=== PATIENT | female | born 1980 | race Caucasian/White ===

== ENCOUNTER 2018-04-14 06:11 | Emergency (ER) | payer BC, SELFPAY ==
[2018-04-14 06:13] VITALS: BP 105/64; PULSE 70; RESP 17; TEMP 36.7; O2SAT 96; BMI 25.6
--- NOTE | 2018-04-14 06:14 | RAD_ITS ---
STUDY: X-RAY - LUMBAR SPINE REASON FOR EXAM: Female, 38 years old. Injury. Low back pain TECHNIQUE: 3 view(s) of the lumbar spine were obtained. COMPARISON: None FINDINGS: Normal lumbar lordosis. There is no substantial scoliosis. There is a normal alignment of the vertebrae. Normal vertebral bodies and endplates. Normal disc space heights. The soft tissue structures are unremarkable. RAD/Lumbar Spine 2 or 3 Views IMPRESSION: Normal x-ray examination of the lumbar spine. No fractures and no disc disease Electronically Signed: Naga Szymanski MD at 6:41 EDT Tel , Service support ,
[2018-04-14] MEDS: Naproxen 500 MG Tablet PO (06:20)
--- NOTE | 2018-04-14 06:56 | ED.VISSUMM ---
- ER Visit Summary Date of Service: 04/14/18 Chief Complaint: Back pain History of Present Illness: The patient is a 38 F presenting for evaluation secondary to back pain. Patient reports that she was lifting today doing a workout. She was using a straight bar with not an exceeding amount of weight. She reports that during 1 of her wraps she felt a sudden pop in her lower back. She reports that there was a sudden onset of pain in this area. Patient reports that associated with the pain was nausea and lightheadedness. She reports that the nausea and lightheadedness came anytime she attempted to stand and the pain would get worse. She denies that there is any sort of radiation to her legs. She denies any bowel or bladder incontinence. She denies any history of back pain issues. Physical Examination: Vitals: Within normal limits General: Well-nourished well-developed no acute distress Head: Normocephalic atraumatic ENT: Moist mucous membranes Neck: Supple no JVD Cardiovascular: Heart regular rate and rhythm no murmurs Respiratory: Respirations nondistressed, lung sounds clear to auscultation bilaterally Abdominal: Soft, nontender, nondistended, normal bowel sounds, no evidence of abdominal masses or pulsatile mass Back: Normal to inspection, midline tenderness at approximately the area of L4 without any evidence of step-offs or deformity, straight leg raise negative bilaterally Extremities: Nontender, nonedematous, 2+ radial and PT pulses bilaterally symmetric Skin: Normal color no rash Neuro: 5/5 strength hip flexion, knee flexion, knee extension, dorsiflexion, plantarflexion, EHL. Sensation intact over all dermatomes of the lower extremities bilaterally, 2+ patellar and Achilles reflexes bilaterally symmetric, negative clonus bilaterally Test Results: Lumbar x-ray is negative and shows normal joint spaces, no evidence of malalignment per my personal review and radiology Emergency Department Course and Treatment: Patient presented secondary to a back injury. X-rays were found to be negative. Patient does not have any neurologic symptoms associated with this, I do not believe that this is associated with a retropulsed disc or instability of the patient's spine. Patient did endorse some lightheadedness and nausea but she has a normal vascular exam and I do not believe that there is any sort of vascular issues with this. She likely was lightheaded and nauseous secondary to a vagal response from her pain. She has normal blood pressure here. She was given Naprosyn for treatment of pain, likely believe that this is a strain of the back. Patient will be treated with a course of Naprosyn and Flexeril and will follow up with primary care. Disposition: Discharge Impression: 1. Lumbar strain This note was generated with [employer] dictation software. It may contain incorrect words, spelling, and punctuation that were not noted in review of the chart prior to signing ED Disposition - Plan for ED Patient: Disposition: Home or Assisted Living Chief Complaint: Back Diagnosis: Lumbar strain Instructions: ED Sprain Strain Lumbar Prescriptions: Naproxen [Naprosyn] 500 mg PO BID PRN #20 tab Cyclobenzaprine [Flexeril] 10 mg PO TID PRN #20 tab PRN Reason: Muscle Spasm Referrals: Vicente Velasco MD [Primary Care Provider] - 1 Week if not improving
[2018-04-14 07:05] VITALS: RESP 15
== END 2018-04-14 07:06 | disposition home or self-care (01) ==
PROVIDERS: Emergency Provider Emergency Medicine; Family Provider Family Medicine; PCP Family Medicine
DX: S39.012A Strain of muscle, fascia and tendon of lower back, initial encounter (principal); X50.0XXA Overexertion from strenuous movement or load, initial encounter; Y93.9 Activity, unspecified; Y92.89 Other specified places as the place of occurrence of the external cause; Y99.9 Unspecified external cause status
CPT/HCPCS: 72100; 99283

== ENCOUNTER → 2019-12-24 14:28 | Outpatient (CLI) | payer BC, SELFPAY ==
[2018-11-15 09:34] VITALS: BMI 25.5
[2019-12-24 18:43] LABS: Anion Gap 11 (5-15); BUN 12 mg/dL (7-18); BUN/Creat Ratio 12.5 RATIO (10-20); Calcium,Total 8.8 mg/dL (8.5-10.1); Chloride 103 mmol/L (98-107); Cholesterol 171 mg/dL (200); Creatinine, Serum 0.96 mg/dL (0.55-1.02); EST Glomerular Filtration Rate 69 mL/min (>60); Est Glom Filt Rate - Afr Amer 83 mL/min (>60); Glucose 83 mg/dL (74-106); High Density Lipoprotein 58 mg/dL; Potassium 3.8 mmol/L (3.5-5.1); Sodium Level 138 mmol/L (136-145); Triglycerides 141 mg/dL; Very Low Density Lipoprotein 28 mg/dL (5-40)
== END ==
PROVIDERS: PCP Family Medicine; Referring Provider Family Medicine; Visit Provider Family Medicine
DX: Z00.00 Encounter for general adult medical examination without abnormal findings (principal)
CPT/HCPCS: 36415; 80048; 80061

== ENCOUNTER → 2020-01-15 17:21 | Outpatient (CLI) | payer BC, SELFPAY ==
[2020-01-15 13:48] VITALS: BMI 25.5
[2020-01-23 03:48] LABS: HPV APTIMA, High Risk Negative (Negative)
== END ==
PROVIDERS: PCP Family Medicine; Referring Provider Obstetrics & Gynecology; Visit Provider Obstetrics & Gynecology
DX: Z12.4 Encounter for screening for malignant neoplasm of cervix (principal)
CPT/HCPCS: 87624; 88175; G0145

== ENCOUNTER → 2020-11-19 17:28 | Outpatient (CLI) | payer BC, SELFPAY ==
[2020-03-26 14:05] VITALS: BMI 25.5
[2020-11-19 19:28] LABS: Probe Check PASS; Specimen Processing Control PASS
== END ==
PROVIDERS: Visit Provider Family Medicine
DX: Z71.89 Other specified counseling (principal)
CPT/HCPCS: 87635; U0002

== ENCOUNTER → 2021-02-09 11:58 | Outpatient (CLI) | payer OTHER, SELFPAY ==
[2020-03-26 14:05] VITALS: BMI 25.5
[2021-01-19 15:09] VITALS: BMI 25.5
--- NOTE | 2021-02-09 12:02 | BI_ITS ---
MAMMOGRAPHY - BILATERAL SCREENING REASON FOR EXAM: Female, 41 years old. Routine annual screening examination. PERTINENT HISTORY: Non-contributory. TECHNIQUE: Digital bilateral breast ney (3D mammographic acquisition) in the CC and MLO projections. 2-D mediolateral oblique (MLO) and craniocaudad (CC) views of both breasts were obtained. CAD: Full Field Digital Mammography with Computer Added Detection was performed. COMPARISON: None. Baseline examination. FINDINGS: Breast Composition: The breasts are extremely dense, which lowers the sensitivity of mammography. There are no dominant masses or suspicious calcifications. No other significant abnormalities are identified. BI/SCRN MAMM (CAD)W/NEY BILAT IMPRESSION: Negative screening mammogram. Yearly followup mammogram recommended. (A) ASSESSMENT CATEGORY: BIRADS Category 1: Negative. A letter regarding these results will be sent to the patient by the facility within 30 days. Approximately 10% of breast cancers are not detected by mammography. A normal mammogram should not delay biopsy of a clinically suspicious abnormality. [id number] Electronically Signed: Eduardo Flores MD at 12:45 EDT , Service support ,
== END ==
PROVIDERS: Referring Provider Obstetrics & Gynecology; Visit Provider Obstetrics & Gynecology
DX: Z12.31 Encounter for screening mammogram for malignant neoplasm of breast (principal)
CPT/HCPCS: 77063; 77067

== ENCOUNTER → 2021-02-24 07:19 | Outpatient (CLI) | payer OTHER, SELFPAY ==
[2021-02-24 10:20] LABS: Anion Gap 8 (5-15); BUN 12 mg/dL (7-18); BUN/Creat Ratio 12.5 RATIO (10-20); Calcium,Total 8.4 mg/dL (8.5-10.1); Chloride 106 mmol/L (98-107); Cholesterol 145 mg/dL (200); Creatinine, Serum 0.96 mg/dL (0.55-1.02); EST Glomerular Filtration Rate 69 mL/min (>60); Est Glom Filt Rate - Afr Amer 83 mL/min (>60); Glucose 84 mg/dL (74-106); High Density Lipoprotein 58 mg/dL; Potassium 3.7 mmol/L (3.5-5.1); Sodium Level 137 mmol/L (136-145); Triglycerides 128 mg/dL; Very Low Density Lipoprotein 26 mg/dL (5-40)
== END ==
PROVIDERS: PCP Family Medicine; Referring Provider Family Medicine; Visit Provider Family Medicine
DX: Z13.220 Encounter for screening for lipoid disorders (principal); Z13.1 Encounter for screening for diabetes mellitus
CPT/HCPCS: 36415; 80048; 80061

== ENCOUNTER 2021-03-24 18:00 | Outpatient (RCR) | payer OTHER, SELFPAY ==
--- NOTE | 2021-03-04 10:01 | HP.PTEVAL_ITS ---
Patient's Visit Information SHI CROWE is a 41 year old F referred to Physical Therapy by Dr. Vicente Velasco MD with a diagnosis of R hip pain. Date of Evaluation: 03/03/21 Physical Therapist: Suresh Muhammad DPT - Visit Plan Frequency: 2x /Week Duration: 4 Weeks Plan: Start with hip abductor strengthening, ER and IT band stretching. Pt. to have running analysis completed and use info to further establish HEP for running correction. - Subjective Pt. is here today for her initial evaluation with diagnosis of R hip pain. Pt. reports having increased R hip pain mostly the day after running for ~2 miles. Pt. reports no pain currently and no pain at rest. Pt. does cross fit x3 a week without issues. Pt. denies N/T, no back pain. She is able to complete all lifting without issues. Pt. has not had any xrays or imaging at this point in time. Pt. sleeping well, no issues with sleeping, no radicular symptoms. She reports increased pain in AMs after running, but loosens up as the day progresses. She reports pain at upper aspect of lateral hip. NO groin pain, pain is just inferior to iliac crest at lateral, anterior aspect. She has changed her shoes recently and reports some relief, but not fully. Her physician would like her to do a running analysis to determine if she is having break down in her running pattern causing her symptoms. - Pain R hip Pain Intensity (Out of 10): 0 Pain Intensity Range: 0, 6 - Objective POSTURE: Pt. has good posture in stance, Normal iliac crest heights. Pt. has normal wt. shift in stance. PALPATION: Pt. has some mild symptoms with firm palpation of glute medius region and slight pain at TFL muscle belly. No pain with rest of palpation of her R hip and lumbar spine. NEURO: normal sensation in BLEs, normal DTR throughout BLEs. ROM: Pt. has good lumbar and hip ROM. Slight tightness with Obers testing B, but no increase in symptoms. MMT: RLE 5/5 throughout, except hip abd 4+/5 with mild increase in symptoms. GAIT: normal gait pattern. Squat mechanics- no issues normal wt. shifting, no off loading noted. Good knee positioning. SLS: increased knee valgus with hip IR motion during R loaded. - Goals Goal 1:: LTG: Pt. to be I with HEP. Goal Time Frame: 4-6 Weeks Goal 2:: LTG: Pt. to have no tightness with obers testing Bilaterally. Goal Time Frame: 4-6 Weeks Goal 3:: LTG: Pt. to have increased R lateral hip strength to 5/5 throughout. Goal Time Frame: 4-6 Weeks Goal 4:: STG: Pt. to have running analysis completed. Goal Time Frame: 2 Weeks Goal 5:: LTG: Pt. to be able to run 2-3 miles with increase in R hip pain the following day. Goal Time Frame: 4-6 Weeks - Rehabilitation Potential Physical Therapy Diagnosis: Pt. has signs of R lateral hip pain. No signs of labral issues. She has some tightness of her IT band and some weakness of her R hip abductors. I would like her to strengthening her lateral hip, work on some IT band and hip ER stretching and also have a running analysis to look for breakdown. Rehabilitation Potential: Excellent - Anticipated Interventions Patient/Client Instruction: Educate patient on: Condition, Plan of Care, Risk Factors, Benefits of Fitness Program For the Purpose of:: To foster healthy habits, To improve decision making, To facilitate caregiver knowledge, To improve self management, To prevent re- injury, To improve ability to perform tasks related to life management Therapeutic Exercise to Include: Strength training, Power training, Endurance training, Postural training, Flexibilty training, Gait and locomotor training, Passive ROM, Active ROM For the Purpose of:: To decrease pain, To decrease swelling/inflammation, To increase ROM, To improve nutrient delivery to tissue, To increase oxygenation perfusion, To improve gait and locomotor functions, To improve health of tissue, To decrease soft tissue restriction, To increase flexibility/ROM Functional Training to Include: Functional sports training, Gait training For the Purpose of:: To decrease pain, To decrease swelling/inflammation, To increase ROM Thank you for the opportunity to evaluate your patient. For Medicare and Medicare HMO plans, please review the plan of care and approve it. It will need to be FAXED BACK to us at [phone] for Medicare purposes. For Medicare only, by signing this I certify the plan of care. Please let me know if there are questions or concerns regarding this plan of care. Physician Signature: Date:
--- NOTE | 2021-07-10 12:28 | HP.PTDCNRP_ITS ---
SHI CROWE was seen in my office for initial evaluation on 03/03/21. The following Plan of Care was established for this patient: Initial Frequency: 2x /Week Initial Duration: 4 Weeks Patient/Client Instruction: Educate patient on: Condition, Plan of Care, Risk Factors, Benefits of Fitness Program For the Purpose of:: To foster healthy habits, To improve decision making, To facilitate caregiver knowledge, To improve self management, To prevent re- injury, To improve ability to perform tasks related to life management Therapeutic Exercise to Include: Strength training, Power training, Endurance training, Postural training, Flexibilty training, Gait and locomotor training, Passive ROM, Active ROM For the Purpose of:: To decrease pain, To decrease swelling/inflammation, To increase ROM, To improve nutrient delivery to tissue, To increase oxygenation perfusion, To improve gait and locomotor functions, To improve health of tissue, To decrease soft tissue restriction, To increase flexibility/ROM Functional Training to Include: Functional sports training, Gait training For the Purpose of:: To decrease pain, To decrease swelling/inflammation, To increase ROM This patient was last seen in our office 03/15/21. Pertinent comments regarding their Physical therapy will appear below: Pt. was seen in PT for her hip pain. Pt. completed a running analysis and was doing better at her last visit. She has no been seen in several months and will be DC from PT at this point in time. At this point I will be discontinuing this patient from physical therapy. I would be happy to see this patient again in the future if found appropriate by the physician. Thank you! Suresh Muhammad, DPT Balance/Gait/Functional tests - Balance/Special Test Scores Lower Extremity Functional Score: 80
== END 2021-03-24 19:00 | disposition home or self-care (01) ==
LOC: PT 18:00
PROVIDERS: PCP Family Medicine; Referring Provider Family Medicine; Visit Provider Family Medicine
DX: M25.551 Pain in right hip (principal)
CPT/HCPCS: 97161; 97530

== ENCOUNTER 2021-10-06 13:02 | Outpatient (CLI) | payer OTHER, SELFPAY ==
[2021-10-06 15:12] LABS: Absolute Lymphocyte Count 2.92 X10^3/uL (0.83-4.51); Absolute Neutrophil Count 4.3 X10^3/uL (2.0-7.7); Basophil# 0.03 X10^3/uL; Basophil% 0.4 % (0-1); Eosinophil# 0.03 X10^3/uL; Eosinophils% 0.4 % (0-5); Hematocrit 39.4 % (37-47); Hemoglobin 13.1 g/dL (12.0-15.0); Lymphocyte # 2.92 X10^3/ul (0.83-4.51); Mean Corp Hgb Conc 33.2 g/dL (32-36); Mean Corpuscular Hgb 30.8 pg (27.0-32.0); Mean Corpuscular Volume 92.7 fL (81-99); Mean Platelet Vol. 11.2 fl (6.2-12.0); Monocyte# 0.42 X10^3/uL; Monocyte% 5.5 % (0-10); NRBC Flagged by Analyzer 0 % (0-5); Neutrophil # 4.27 X10^3/uL (2.7-7.7); Neutrophil % 55.4 % (47-70); Platelet Count 236 K/mm3 (150-450); RBC Distribution Width CV 12.1 % (11.6-14.6); RBC Distribution Width SD 41.2 fl (35.1-43.9); Red Blood Count 4.25 M/mm3 (4.2-5.4); White Blood Count 7.7 K/mm3 (4.4-11.0)
[2021-10-06 15:37] LABS: ALB/GLOB Ratio 1.1 RATIO (0.9-2.4); AST(SGOT) 13 U/L (15-37); Alanine Aminotransfer ALT/SGPT 23 U/L (13-56); Albumin, Serum 3.7 g/dL (3.2-5.0); Alkaline Phosphatase 40 U/L (45-117); Anion Gap 5 (5-15); BUN 13 mg/dL (7-18); BUN/Creat Ratio 11.8 RATIO (10-20); Calcium,Total 8.5 mg/dL (8.5-10.1); Chloride 106 mmol/L (98-107); EST Glomerular Filtration Rate 58 mL/min (>60); Est Glom Filt Rate - Afr Amer 71 mL/min (>60); Globulin 3.3 g/dL (2.2-4.2); Glucose 90 mg/dL (74-106); Potassium 3.9 mmol/L (3.5-5.1); Sodium Level 138 mmol/L (136-145)
== END 2021-10-06 23:59 | disposition home or self-care (01) ==
LOC: MTLAB 13:04
PROVIDERS: PCP Family Medicine; Referring Provider Nurse Practitioner Family; Visit Provider Nurse Practitioner Family
DX: R55 Syncope and collapse (principal)
CPT/HCPCS: 36415; 80053; 85025

== ENCOUNTER → 2021-10-26 | Outpatient (CLI) | payer OTHER, SELFPAY ==
[2021-10-26 15:34] LABS: ALB/GLOB Ratio 0.9 RATIO (0.9-2.4); AST(SGOT) 19 U/L (15-37); Alanine Aminotransfer ALT/SGPT 26 U/L (13-56); Albumin, Serum 3.4 g/dL (3.2-5.0); Alkaline Phosphatase 46 U/L (45-117); Anion Gap 7 (5-15); BUN 13 mg/dL (7-18); BUN/Creat Ratio 13.5 RATIO (10-20); Calcium,Total 8.7 mg/dL (8.5-10.1); Chloride 106 mmol/L (98-107); Creatinine, Serum 0.96 mg/dL (0.55-1.02); EST Glomerular Filtration Rate 68 mL/min (>60); Est Glom Filt Rate - Afr Amer 82 mL/min (>60); Globulin 3.6 g/dL (2.2-4.2); Glucose 84 mg/dL (74-106); Sodium Level 137 mmol/L (136-145)
== END | disposition home or self-care (01) ==
LOC: MTLAB 12:55
PROVIDERS: PCP Family Medicine; Referring Provider Nurse Practitioner Family; Visit Provider Nurse Practitioner Family
DX: Z00.00 Encounter for general adult medical examination without abnormal findings (principal)
CPT/HCPCS: 36415; 80053

== ENCOUNTER → 2022-02-11 | Outpatient (CLI) | payer OTHER, SELFPAY ==
--- NOTE | 2022-02-11 15:05 | BI_ITS ---
MAMMOGRAPHY - BILATERAL SCREENING REASON FOR EXAM: Female, 42 years old. Routine annual screening examination. PERTINENT HISTORY: Non-contributory. TECHNIQUE: Digital bilateral breast ney (3D mammographic acquisition) in the CC and MLO projections. 2-D mediolateral oblique (MLO) and craniocaudad (CC) views of both breasts were obtained. CAD: Full Field Digital Mammography with Computer Added Detection was performed. COMPARISON: Comparison is made with prior study dated 02/09/2021. FINDINGS: Breast Composition: The breasts are extremely dense, which lowers the sensitivity of mammography. There are no dominant masses or suspicious calcifications. No other significant abnormalities are identified. There has been no significant change since the prior study. BI/SCRN MAMM (CAD)W/NEY BILAT IMPRESSION: Stable bilateral screening mammogram. Yearly follow-up mammogram recommended. (A) ASSESSMENT CATEGORY: BIRADS Category 1: Negative. A letter regarding these results will be sent to the patient by the facility within 30 days. Approximately 10% of breast cancers are not detected by mammography. A normal mammogram should not delay biopsy of a clinically suspicious abnormality. [id number] Electronically Signed: Eduardo Flores MD at 17:35 EDT ,
== END | disposition home or self-care (01) ==
LOC: OPBI 15:03
PROVIDERS: PCP Family Medicine; Visit Provider Obstetrics & Gynecology
DX: Z12.31 Encounter for screening mammogram for malignant neoplasm of breast (principal)
CPT/HCPCS: 77063; 77067

== ENCOUNTER → 2022-02-16 | Outpatient (CLI) | payer OTHER, SELFPAY | END | disposition home or self-care (01) | PROVIDERS: PCP Family Medicine; Referring Provider Obstetrics & Gynecology; Visit Provider Obstetrics & Gynecology | DX: Z85.01 Personal history of malignant neoplasm of esophagus (principal) | CPT/HCPCS: 36415 ==

== ENCOUNTER → 2022-11-10 | Outpatient (CLI) | payer OTHER, SELFPAY ==
[2022-11-10 10:52] LABS: Vitamin D,25 Hydroxy 36.1 ng/mL
[2022-11-10 11:11] LABS: Anion Gap 9 (5-15); BUN 10 mg/dL (7-18); BUN/Creat Ratio 10.1 RATIO (10-20); Calcium,Total 8.9 mg/dL (8.5-10.1); Chloride 106 mmol/L (98-107); Cholesterol 137 mg/dL (200); EST Glomerular Filtration Rate 65 mL/min (>60); Est Glom Filt Rate - Afr Amer 79 mL/min (>60); Glucose 85 mg/dL (74-106); High Density Lipoprotein 64 mg/dL; Potassium 4.4 mmol/L (3.5-5.1); Sodium Level 140 mmol/L (136-145); Thyroid Stim Hormone (TSH) 1.47 uIU/mL (0.358-3.74); Triglycerides 79 mg/dL; Very Low Density Lipoprotein 16 mg/dL (5-40)
== END | disposition home or self-care (01) ==
LOC: MTLAB 08:59
PROVIDERS: PCP Family Medicine; Referring Provider Family Medicine; Visit Provider Family Medicine
DX: Z13.220 Encounter for screening for lipoid disorders (principal); Z13.1 Encounter for screening for diabetes mellitus
CPT/HCPCS: 36415; 80048; 80061; 82306; 84443

== ENCOUNTER → 2023-02-18 | Outpatient (CLI) | payer OTHER, SELFPAY ==
--- NOTE | 2023-02-18 11:06 | BI_ITS ---
MAMMOGRAPHY - BILATERAL SCREENING REASON FOR EXAM: Female, 43 years old. Routine annual screening examination. PERTINENT HISTORY: Non-contributory. TECHNIQUE: Digital bilateral breast ney (3D mammographic acquisition) in the CC and MLO projections. 2-D mediolateral oblique (MLO) and craniocaudad (CC) views of both breasts were obtained. CAD: Full Field Digital Mammography with Computer Added Detection was performed. COMPARISON: Comparison is made with prior study February 11, 2022 and February 09, 2021. FINDINGS: Breast Composition: The breasts are extremely dense, which lowers the sensitivity of mammography. There are no dominant masses or suspicious calcifications. No other significant abnormalities are identified. There has been no significant change since the prior study. BI/SCRN MAMM (CAD)W/NEY BILAT IMPRESSION: Stable bilateral screening mammogram. Yearly follow-up mammogram recommended. (A) ASSESSMENT CATEGORY: BIRADS Category 1: Negative. A letter regarding these results will be sent to the patient by the facility within 30 days. Approximately 10% of breast cancers are not detected by mammography. A normal mammogram should not delay biopsy of a clinically suspicious abnormality. [id number] Electronically Signed: Eduardo Flores MD at 12:24 EDT ,
== END | disposition home or self-care (01) ==
LOC: OPBI 11:05
PROVIDERS: PCP Family Medicine; Referring Provider Obstetrics & Gynecology; Visit Provider Obstetrics & Gynecology
DX: Z12.31 Encounter for screening mammogram for malignant neoplasm of breast (principal)
CPT/HCPCS: 77063; 77067

== ENCOUNTER → 2023-11-18 | Outpatient (CLI) | payer OTHER, SELFPAY ==
[2023-11-18 11:17] LABS: Vitamin D,25 Hydroxy 33.4 ng/mL
[2023-11-18 11:31] LABS: Anion Gap 8 (5-15); BUN 14 mg/dL (7-18); BUN/Creat Ratio 12.8 RATIO (10-20); Calcium,Total 8.6 mg/dL (8.5-10.1); Chloride 106 mmol/L (98-107); Cholesterol 151 mg/dL (200); Creatinine, Serum 1.09 mg/dL (0.55-1.02); EST Glomerular Filtration Rate 58 mL/min (>60); Est Glom Filt Rate - Afr Amer 71 mL/min (>60); Glucose 98 mg/dL (74-106); High Density Lipoprotein 62 mg/dL; Potassium 3.8 mmol/L (3.5-5.1); Sodium Level 135 mmol/L (136-145); Thyroid Stim Hormone (TSH) 2.08 uIU/mL (0.358-3.74); Triglycerides 109 mg/dL; Very Low Density Lipoprotein 22 mg/dL (5-40)
== END | disposition home or self-care (01) ==
LOC: MTLAB 07:18
PROVIDERS: PCP Family Medicine; Referring Provider Family Medicine; Visit Provider Family Medicine
DX: Z00.00 Encounter for general adult medical examination without abnormal findings (principal)
CPT/HCPCS: 36415; 80048; 80061; 82306; 84443

== ENCOUNTER → 2024-05-09 | Outpatient (CLI) | payer BC, SELFPAY ==
[2024-05-16 13:08] LABS: HPV APTIMA, High Risk Negative (Negative)
== END | disposition home or self-care (01) ==
LOC: LABSPEC 08:57
PROVIDERS: PCP Family Medicine; Referring Provider Obstetrics & Gynecology; Visit Provider Obstetrics & Gynecology
DX: Z12.4 Encounter for screening for malignant neoplasm of cervix (principal)
CPT/HCPCS: 87624; 88175; G0145

== ENCOUNTER → 2024-05-25 | Outpatient (CLI) | payer BC, SELFPAY ==
--- NOTE | 2024-05-25 14:52 | BI_ITS ---
MAMMOGRAPHY - BILATERAL SCREENING REASON FOR EXAM: Female, 44 years old. Routine annual screening examination. PERTINENT HISTORY: Non-contributory. TECHNIQUE: Digital bilateral breast ney (3D mammographic acquisition) in the CC and MLO projections. 2-D mediolateral oblique (MLO) and craniocaudad (CC) views of both breasts were obtained. CAD: Full Field Digital Mammography with Computer Added Detection was performed. COMPARISON: Comparison is made with prior study dated February 18, 2023 and February 11, 2022. FINDINGS: Breast Composition: The breasts are extremely dense, which lowers the sensitivity of mammography. There are no dominant masses or suspicious calcifications. No other significant abnormalities are identified. There has been no significant change since the prior study. BI/SCRN MAMM (CAD)W/NEY BILAT IMPRESSION: Stable bilateral screening mammogram. Yearly follow-up mammogram recommended. (A) ASSESSMENT CATEGORY: BIRADS Category 1: Negative. A letter regarding these results will be sent to the patient by the facility within 30 days. Approximately 10% of breast cancers are not detected by mammography. A normal mammogram should not delay biopsy of a clinically suspicious abnormality. [id number] Electronically Signed: Eduardo Flores MD at 15:25 EST ,
== END | disposition home or self-care (01) ==
LOC: OPBI 14:52
PROVIDERS: PCP Family Medicine; Referring Provider Obstetrics & Gynecology; Visit Provider Obstetrics & Gynecology
DX: Z12.31 Encounter for screening mammogram for malignant neoplasm of breast (principal)
CPT/HCPCS: 77063; 77067

== ENCOUNTER → 2024-12-25 | Outpatient (CLI) | payer BC, SELFPAY ==
--- OUTSIDE RECORDS SUMMARY | 2024-12-25 07:37 | XMS RPT_ITS | CCD ---
Author Organization [facility] Care Team Providers Care Abstract Maker Name Role Phone Dr. Vicente Velasco Primary Care Provider Dr. Vicente Velasco Referring Provider Sol MILLER, ANGELA Leon Attending Provider Dr. Lynda Rivera Attending Provider Dr. Vicente Velasco Primary Care Provider [phone] Dr. Vicente Velasoc Referring Provider Stacey Velasco MD Primary Care Provider Stacey Velasco MD Primary Care Provider Stacey Velasco Primary Care Unavailable Lynda Rivera Referring Unavailable Lynda Rivera Attending Unavailable Stacey Velasco Primary Care Unavailable Lynda Rivera Referring Unavailable Lynda Rivera Attending Unavailable Stacey Velasco Attending Unavailable Stacey Velasco Primary Care Unavailable Stacey Velasco Referring Unavailable Stacey Velasco Primary Care Unavailable Lynda Rivera Attending Unavailable Stacey Velasco Referring Unavailable MYRA MORA Attending Unavail able STACEY VELASCO Primary Care Unavailfreida e STACEY VELASCO Primary Care Unavailfreida e MYRA MORA Referring Unavail able STACEY VELASCO Primary Care Unavailabl e MYRA MORA Attending Unavail able STACEY VELASCO Primary Care Unavailabl e MYRA MORA Attending Unavail able Allergies Allergy Classification Reported Allergen(s) Allergy Type Date of Onset Reaction(s) Facility (11 sources) Amoxicillin; Translations: [AMOXICILLIN] Drug Allergy 07-11-2001 Rash [facility] (1 source) Amoxicillin Drug Allergy 05-09-2024 [facility] Repository Medications Current Medications Medication Drug Class(es) Dates Sig (Normalized) Sig (Original) cetirizine hydrochloride 10 mg oral tablet (1 source) Histamine-1 Receptor Antagonist Start: 06-01-2023 End: 06-11-2023 take 1 tablet by mouth once daily cetirizine (ZYRTEC) 10 mg tablet Take 1 tablet by mouth once daily for 10 days. 10 tablet 0 06/01/2023 06/11/2023 Active Comment on above: Take 1 tablet by tami th once daily for 10 days. drospirenone / Ethinyl Estradiol (20 sources) Progestin, Estrogen Start: 07-05-2024 take 1 tablet by mouth once daily Drospirenone-Ethi nyl Estradiol (IRTU, 28,) 3-0.02 mg per tablet Take 1 tablet by mouth once daily. 28 tablet 11 07/05/2024 Active Start: 02-14-2023 take 1 tablet by tami th once daily Drospirenone-Ethinyl Estradiol Active 0 .ROUTE .COMPLEX February 14, 2023 11:01am take 1 tablet by mouth once daily Start: 01-25-2022 End: 02-14-2023 take 1 tablet by mouth once daily Drospirenone-Ethinyl Estradiol Discontinued 0 .ROUTE .COMPLEX 84 January 25, 2022 9:15am February 14, 2023 11:01am take 1 tablet by mouth once daily Start: 01-25-2022 take 1 tablet by tami th once daily Drospirenone-Ethinyl Estradiol Active 0 .ROUTE .COMPLEX January 25, 2022 9:15am take 1 tablet by mouth once daily Start: 01-19-2021 End: 01-25-2022 Drospirenone-Ethinyl Estradi ol (Margret (28)) 3-0.02 mg tablet Discontinued 1 TABLET PO daily January 19, 2021 3:22pm January 25, 2022 9:15am Start: 01-19-2021 Drospirenone-E thinyl Estradiol (Margret (28)) 3-0.02 mg tablet Active 1 TABLET PO daily January 19, 2021 3:22pm Start: 01-08-2021 End: 01-19-2021 Drospirenone-Ethinyl Estradi ol (Margret (28)) 3-0.02 mg tablet Discontinued 1 TABLET PO daily January 08, 2021 9:46am January 19, 2021 3:22pm Start: 01-08-2020 End: 01-08-2021 Drospirenone-Ethinyl Estradi ol (Margret (28)) 3-0.02 mg tablet Discontinued 1 TABLET PO daily January 08, 2020 12:28pm January 08, 2021 9:46am Start: 11-15-2018 End: 01-08-2020 Drospirenone-Ethinyl Estradi ol (Margret (28)) 3-0.02 mg tablet Discontinued 1 TABLET PO daily November 15, 2018 9:54am January 08, 2020 12:28pm Start: 08-09-2018 End: 11-15-2018 Drospirenone-Ethinyl Estradi ol (Margret (28)) 3-0.02 mg tablet Discontinued 1 TABLET PO daily August 09, 2018 5:22pm November 15, 2018 9:55am Start: 09-21-2017 End: 08-09-2018 Drospirenone-Ethinyl Estradi ol (Margret (28)) 3-0.02 mg tablet Discontinued 1 TABLET PO daily September 21, 2017 9:56am August 09, 2018 5:23pm Start: 09-21-2017 End: 09-21-2017 Drospirenone-Ethinyl Estradi ol (Margret (28)) 3-0.02 mg tablet Discontinued 1 TABLET PO daily September 21, 2017 9:29am September 21, 2017 9:59am Start: 09-21-2017 End: 09-21-2017 Drospirenone-Ethinyl Estradi ol (Margret (28)) 3-0.02 mg tablet Discontinued 1 TABLET PO daily September 21, 2017 12:00am September 21, 2017 9:59am Start: 01-17-2017 End: 07-05-2024 take 1 tablet by mouth once daily Drospirenone-Ethinyl Estradiol (RITU, 28,) 3-0.02 mg per tablet Take 1 tablet by mouth once daily. 28 tablet 11 01/17/2017 07/05/2024 Discontinued (Adjust Sig - Block E-Cancel) Start: 01-17-2017 take 1 tablet by tami once daily Drospirenone-Ethinyl Estradiol (RITU, 28,) 3-0.02 mg per tablet Take 1 tablet by mouth once daily. 28 tablet 11 01/17/2017 Active Comment on above: Take 1 tablet by tami once daily. phentermine hydrochloride 37.5 mg oral tablet (1 source) Sympathomimetic Amine Anorectic Start: 025 End: take 1 tablet by mouth once daily before breakfast Phentermine HCl 37.5 mg tablet Indications: Elevated serum creatinine , Overweight with body mass index (BMI) of 27 to 27.9 in adult , History of gestational hypertension Take 1 tablet by mouth daily before breakfast for 90 days. 90 tablet 12/05/2024 03/05/2025 Active predniSONE 20 mg oral tablet (1 source) Start: 023 End: take 2 tablets by mouth once daily predniSONE (DELTASONE) 20 mg tablet Take 2 tablets by mouth once daily for 5 days. 10 tablet 0 06/01/2023 06/06/2023 Active Comment on above: Take 2 tablets by mo [facility] once daily for 5 days. Completed/Discontinued Medications Medication Drug Class(es) Dates Sig (Normalized) Sig (Original) acetaminophen 325 mg / oxyCODONE hydrochloride 5 mg oral tablet (5 sources) Opioid Agonist Start: 03-15-2014 End: 09-21-2017 take 2 tablets by mouth every four hours as needed Oxycodone-Acetamin ophen Discontinued 2 TABLET PO EVERY 4 HOURS NEEDED March 15, 2014 12:00am September 21, 2017 9:28am Cephalexin (2 sources) Cephalosporin Antibacterial End: 07-05-2024 CEPHALEXIN (KEFLEX ORAL) Take by mouth. 07/05/2024 Discontinued CEPHALEXIN (KEFL EX ORAL) Take by mouth. 0 Active Comment on above: Take by mouth. cyclobenzaprine hydrochloride 10 mg oral tablet (5 sources) Muscle Relaxant Start: 04-14-20 18 End: 01-15-20 take 10 mg by mouth three times daily Cyclobenzaprine Discontinued 10 MG PO THREE TIMES A DAY April 14, 2018 12:00am January 15, 2020 1:48pm dexamethasone 4 mg oral tablet (5 sources) Corticosteroid Start: 07-08-19 End: 02-12-20 take 1 tablet by mouth once daily Dexamethasone (Decadron) 4 mg tablet Discontinued 4 MG PO DAILY July 08, 2021 1:00am February 11, 2022 2:56pm UJI-TXV-Crqrlwmyez Agent-Vit E ORAL Cap (2 sources) End: 07-05-19 take 1 capsule by mouth once daily [id number]-ILV-Dxrvwzszlx Agent-Vit E ORAL Cap Take 1 capsule by mouth once daily. 07/05/2024 Discontinued take 1 capsule by mouth once jemima ly DGO-XDG-Ckoirvimkq Agent-Vit E ORAL Cap Take 1 capsule by mouth once daily. 0 Active Comment on above: Take 1 capsule by [facility] once daily. DHA/EPA/FOLIC ACID/VIT A,D/MIN (DHA-EPA-VIT A-VIT B-VCGXQPR-EV ORAL) (2 sources) End: 07-05-2024 DHA/EPA/FOLIC ACID/VIT A,D/MIN (DHA-EPA-VIT A-VIT R-PEEXNWP-SQ ORAL) Take by mouth. 07/05/2024 Discontinued DHA/EPA/FOLIC AC ID/VIT A,D/MIN (DHA-EPA-VIT A-VIT A-VOMRHON-SY ORAL) Take by mouth. 0 Active Comment on above: Take by mouth. ibuprofen 600 mg oral tablet (5 sources) Nonsteroidal Anti-inflammatory Drug Start: 4 End: 8 take 600 mg by mouth every six hours as needed Ibuprofen Discontinued 600 MG PO EVERY 6 HOURS NEEDED March 15, 2014 12:00am September 21, 2017 9:28am MULTIVITAMIN ORAL (2 sources) End: 5 MULTIVITAMIN ORAL Take by mouth. 07/05/2024 Discontinued MULTIVITAMIN ORA L Take by mouth. 0 Active Comment on above: Take by mouth. naproxen 500 mg oral tablet (5 sources) Nonsteroidal Anti-inflammatory Drug Start: 8 End: 0 take 500 mg by mouth twice daily as needed Naproxen Discontinued 500 MG PO TWICE DAILY NEEDED April 14, 2018 12:00am January 15, 2020 1:48pm oseltamivir 75 mg oral capsule (2 sources) Neuraminidase Inhibitor Start: 5 End: oseltamivir (TAMIFLU) 75 mg capsule 08/31/2024 12/05/2024 Discontinued VIT/FE FUMARATE/FA ( ORAL) (2 sources) End: take 1 tablet by mouth once daily VIT/FE FUMARATE/FA ( ORAL) Take 1 tablet by mouth once daily. 07/05/2024 Discontinued take 1 tablet by mouth once bharti y VIT/FE FUMARATE/FA ( ORAL) Take 1 tablet by mouth once daily. 0 Active Comment on above: Take 1 tablet by tami th once daily. Vits (5 sources) Start: 03-14-2014 End: 09-21-2017 take 1 tablet by mouth once daily Vits Discontinued 1 TABLET PO DAILY March 14, 2014 1:09am September 21, 2017 9:28am Start: 03-14-2014 End: 09-21-2017 take 1 tablet by mouth once daily Vits Discontinued 1 TABLET PO DAILY March 14, 2014 12:00am September 21, 2017 9:28am sulfamethoxazole 800 mg / trimethoprim 160 mg oral tablet (5 sources) Dihydrofolate Reductase Inhibitor Antibacterial, Sulfonamide Antimicrobial Start: 03-26-2020 End: 03-31-2020 take 1 tablet by mouth twice daily Sulfamethoxazole-Trimethoprim Discontinued 1 TABLET PO TWICE A DAY 10 5 March 26, 2020 12:00am March 31, 2020 12:02am topiramate 50 mg oral tablet (4 sources) Start: 07-05-2024 End: 12-05-2024 take 1 tablet by mouth once daily at bedtime topiramate (TOPAMAX) 50 mg tablet Take 1 tablet by mouth daily at bedtime. 90 tablet 09/04/2024 12/05/2024 Discontinued Problems Active Problems Problem Classification Problem Date Documented Da te Episodic/Chronic Inflammatory diseases of female pelvic organs (5 sources) Cyst of Bartholin's gland duct; Translations: [Cyst of Bartholin's gland] 09-21-2017 Episodic Other nutritional; endocrine; and metabolic disorders (4 sources) Overweight in adulthood with body mass index of 25 or more but less than 30; Translations: [Overweight] 07-05-2024 Episodic Other skin disorders (1 source) Eruption; Translations: [Rash and other nonspecific skin eruption] 06-01-2023 Episodic Residual codes; unclassified (1 source) History of gestational hypertension; Translations: [Personal history of other complications of , childbirth and the puerperium] 12-05-2024 Episodic Sprains and strains (5 sources) Low back strain; Translations: [Strain of muscle, fascia and tendon of lower back, initial encounter] 04-15-2018 Episodic Viral infection (7 sources) Disease caused by 2019-nCoV; Translations: [COVID-19] Episodic Past or Other Problems Problem Classification Problem Date Documented Date Episodic/Chronic Malaise and fatigue (5 sources) Malaise and fatigue; Translations: [Other malaise] Onset: 09-04-2024 07-05-2024 Episodic Other complications of ; puerperium affecting management of mother (4 sources) Nonpurulent mastitis associated with the puerperium; Translations: [Nonpurulent mastitis associated with childbirth, condition or complication] Onset: 04-17-2012 Resolved: 05-14-2013 05-14-2013 Episodic Other complications of ; puerperium affecting management of mother (4 sources) Complication of the puerperium; Translations: [Other complications of the puerperium, not elsewhere classified] Onset: 05-03-2013 Resolved: 05-14-2013 06-29-2021 Episodic Other complications of (4 sources) Finding of pattern of ; Translations: [Supervision of other high risk pregnancies, unspecified trimester] Onset: 05-03-2013 Resolved: 05-14-2013 06-29-2021 Episodic Other complications of (4 sources) H/O: miscarriage; Translations: [Supervision of with other poor reproductive or obstetric history, unspecified trimester] Onset: 07-03-2013 Resolved: 06-20-2014 06-29-2021 Episodic Other nutritional; endocrine; and metabolic disorders (1 source) Overweight; Translations: [Overweight with body mass index (BMI) of 27 to 27.9 in adult] Onset: 07-25-2024 Episodic Other nutritional; endocrine; and metabolic disorders (1 source) Body mass index (BMI) 27.0-27.9, adult; Translations: [Overweight with body mass index (BMI) of 27 to 27.9 in adult] Onset: 07-25-2024 Episodic Other and delivery including normal (8 sources) Normal in primigravida; Translations: [Encounter for supervision of normal first , unspecified trimester] Onset: 07-28-2011 Resolved: 06-20-2014 06-29-2021 Episodic Other screening for suspected conditions (not mental disorders or infectious disease) (18 sources) Patient encounter status; Translations: [Encounter for other screening for genetic and chromosomal anomalies] Onset: 06-04-2024 03-02-2022 Episodic Residual codes; unclassified (4 sources) History of headache; Translations: [Personal history of other specified conditions] Onset: 07-03-2013 Resolved: 06-20-2014 06-29-2021 Episodic Unclassified (3 sources) pinky finger surgery 01-28-2022 Results Test Name Value Interpretation Reference Range Facility OV 12-05-2024 CNOV Office Visit (OBGYWM ) LINDA CROWE ([id number]) 1980 F Date Time Provider Department 12/05/24 3:00 PM MYRA MORA OBKARINAWCarolyn During your visit today, we recorded the following information about you: Pulse Blood pressure Weight 99/minute 112/76 82.6 kg Myra Mora MD 12/05/2024 5:02 PM Signed Some documentation from previous visit of 09/04/2024 was copied and pasted, documentation has been reviewed and edited as necessary for today's visit. Patient Summary: Linda is a 44 year old Female who presents for follow-up evaluation of obesity/weight management to treat and prevent related co-morbidities. In our previous visits we have discussed lifestyle intervention including a nutrition recommendations and physical activity optimization. Her last office visit was 2 months ago. Assessment/plan from last visit: -repeat Creatinine level- hydration before reviewed - continue topiramate daily- reviewed adding second dose if needed- will contact if feels cravings are increasing - reviewed adding more protein to breakfast- making shake routine - discussed focusing on two meals and then be more lenient on dinner - continue tamiflu for influenza A - Topiramate Rx ordered - will notify patient of results of lab Interval History PT specifies the following items as new or significant updates since the last appointment: - Reports weight gain despite regular high-intensity exercise, including running and lifting. - Describes frustration with weight gain despite significant caloric expenditure through exercise. - Previously tried a medication for weight loss but discontinued due to experiencing mental fog and difficulty coping with stress.- - Reattempted the medication for 2-4 weeks but experienced the same side effects, leading to discontinuation. - Expresses reluctance to take medication long-term for weight management. Weight loss since last vist: + 5 lbs Total weight loss 2 lbs - Last Wt 12/05/24 : 82.6 kg (182 lb) 09/04/24 : 80.2 kg (177 lb) 07/05/24 : 83.5 kg (184 lb) Initial Wt Goal weight: 155 lb 5% weight loss = 175 lbs, 10% weight loss = 166 lbs Anti-obesity medications: Topiramate. Benefit:decreased food noise Adverse effects: none Weight promoting medications: none Previous Diet (initial appointment): Awake - 4:30am B - 2 eggs sometimes with toast, sometimes cereal- raisin bran crunch, protein granola and almond milk after work out - protein shake- ascent (25g, 2-4g carbs) S - nut and cheese snack pack, kind protein bar, cheese stick , pop corn, pretzels L - vegan/sugar free plant based (sakara)- half the time other time eating out- welsh, protein shake if has vegan. S - 1/4 of the time- pretzels or popcorn- whatever is at office- stress?? D - beef or chicken, sometimes fish- sides- green vegetable and rice/beans. eats out 1/2 the time- chipolte - basil- avocado saleem- chicken or shrimp w/ brown rice, panera- salad or francisco cheese soup, S - wine 2-3 x week occasional ice cream 1 x week Fluids: water (40-100oz), coffee, occasional beer, unswt. Van almond milk, wine occasional Bedtime - 9pm Quality of diet: 24hr recall suggests in between diet. Characterization of diet:Structured and unhealthy snacking. Appraisal Coordinator of impaired eating habits:lack of satiety, mindlessness , and stress Eating Disorder no Cravings: salty Dietary changes: B - 2 eggs, sometimes 25g protein , sometimes protein shake, fruit and nuts S - pretzels L - sakara lunch- protein shake- or chicken w/ salad , S - occasionally - meat stick, cottage cheese, ritz cracker and PB D - variable- meat, vegetable- meatloaf, mashed potato S - Fluids - water, coffee Eating 3 meals a day, including breakfast Controlling portions Identify hunger and satiety cues Limiting processed foods Increasing protein Reducing carbohydrates Mindful Eating strategies Current Barriers: reduced physical activity- this month only Exercise: stable Regular exercise: yes run 3 days a week 6miles 3 x week (increased from 3mi) Strength/resistance exercise:yes cross fit 3 days a week Stress: increased- dad sick - but stable now and work Sleep: stableDuration: 7 hours. KIERSTEN NO ; CPAP NO Estimated Creatinine Clearance: 80.2 mL/min (A) (based on SCr of 1.02 mg/dL (H)). PAST MEDICAL HISTORY Diagnosis Date Abnormal glandular Papanicolaou smear of cervix 2003,2009 Abn. Pap smear (cervix) Other int derangement knee Patellar Subluxation--Right Swine Flu May 2009 Current Outpatient Medications Medication Sig Dispense Refill Drospirenone-Ethinyl Estradiol (RITU, Jelani,) 3-0.02 mg per tablet Take 1 tablet by mouth once daily. 28 tablet 11 Phentermine HCl 37.5 mg tablet Take 1 tablet by mouth daily before breakfast for 90 days. 90 tablet 0 No current facility-administered medications for thi (more content not included)... Normal [facility] CNOVon 09-04-2024 CNOV Office Visit (OBGYWM ) LINDA CROWE ([id number]) 1980 F Date Time Provider Department 09/04/24 11:40 AM MYRA MORA OBGYWCarolyn During your visit today, we recorded the following information about you: Pulse Blood pressure Weight 54/minute 104/72 80.3 kg Myra Mora MD 09/04/2024 12:45 PM Signed Some documentation from previous visit of 07/05/2024 was copied and pasted, documentation has been reviewed and edited as necessary for today's visit. Patient Summary: Linda is a 44 year old Female who presents for follow-up evaluation of obesity/weight management to treat and prevent related co-morbidities. In our previous visits we have discussed lifestyle intervention including a nutrition recommendations and physical activity optimization. Her last office visit was 2 months ago. Assessment/plan from last visit: - [facility]- elevated creatinine level 1.09 and eGFR 58 Vitamin D 33.4, 2022 TSH 1.47 - ordered CMP, Insulin, A1c, TSH- Lipids done in 11/2023 were WNL - Discussed nutrition in detail- pt has a lot of food noise- does eat overall well and does get regular exercise- I feel it will be in her best interest for trial of topiramate. Pt understands this is off label use. Reviewed common SE and how to take medication. -reviewed tracking- may be trigger for her so just focus on protein and decreasing carbs and processed foods Interval History PT specifies the following items as new or significant updates since the last appointment: - has been stressful month- dad was in hospital in [place] - had influenza A - feeling like need to snack is not there anymore - trying to focus on protein but does not necessarily restrict herself -gym has not been great this month due to everything but will get back to it. - no issues with medication- very happy with weight loss. Weight loss since last vist: 7 lbs - Last Wt 09/04/24 : 80.2 kg (177 lb) 07/05/24 : 83.5 kg (184 lb) Initial Wt Goal weight: 155 lb 5% weight loss = 175 lbs, 10% weight loss = 166 lbs Anti-obesity medications: Topiramate. Benefit:decreased food noise Adverse effects: none Weight promoting medications: none Previous Diet (initial appointment): Awake - 4:30am B - 2 eggs sometimes with toast, sometimes cereal- raisin bran crunch, protein granola and almond milk after work out - protein shake- ascent (25g, 2-4g carbs) S - nut and cheese snack pack, kind protein bar, cheese stick , pop corn, pretzels L - vegan/sugar free plant based (sakara)- half the time other time eating out- welsh, protein shake if has vegan. S - 1/4 of the time- pretzels or popcorn- whatever is at office- stress?? D - beef or chicken, sometimes fish- sides- green vegetable and rice/beans. eats out 1/2 the time- chipolte - basil- avocado saleem- chicken or shrimp w/ brown rice, panera- salad or francisco cheese soup, S - wine 2-3 x week occasional ice cream 1 x week Fluids: water (40-100oz), coffee, occasional beer, unswt. Van almond milk, wine occasional Bedtime - 9pm Quality of diet: 24hr recall suggests in between diet. Characterization of diet:Structured and unhealthy snacking. Appraisal Coordinator of impaired eating habits:lack of satiety, mindlessness , and stress Eating Disorder no Cravings: salty Dietary changes: B - 2 eggs, sometimes 25g protein S - no L - sakara lunch- protein shake- or chicken w/ salad , S - occasionally - meat stick, cottage cheese, ritz cracker and PB D - S - Fluids - Eating 3 meals a day, including breakfast Controlling portions Identify hunger and satiety cues Limiting processed foods Increasing protein Reducing carbohydrates Mindful Eating strategies Current Barriers: reduced physical activity- this month only Exercise: decreased- due to illness and travel Regular exercise: yes run 3 days a week 6miles 3 x week (increased from 3mi) Strength/resistance exercise:yes cross fit 3 days a week Stress: increased- dad sick - but stable now and work Sleep: stableDuration: 7 hours. KIERSTEN NO ; CPAP NO Estimated Creatinine Clearance: 79.1 mL/min (A) (based on SCr of 1.02 mg/dL (H)). PAST MEDICAL HISTORY Diagnosis Date Abnormal glandular Papanicolaou smear of cervix 2003,2009 Abn. Pap smear (cervix) Other int derangement knee Patellar Subluxation--Right Swine Flu May 2009 Current Outpatient Medications Medication Sig Dispense Refill oseltamivir (TAMIFLU) 75 mg capsule Drospirenone-Ethinyl Estradiol (RITU, 28,) 3-0.02 mg per tablet Take 1 tablet by mouth once daily. 28 tablet 11 topiramate (TOPAMAX) 50 mg tablet Take 1 tablet by mouth daily at bedtime. 90 tablet 0 No current facility-administered medications for this visit. ROS denies Paraesthesia, brain fog, stomach pain ROS/Fam Hx pertaining to AOMs: GEN: Fatigue:yes CV: h/o palpitations/cardiac arrhy (more content not included)... Normal [facility] Comprehensive metabolic 2000 panelon 07-25-2024 Albumin [Mass/Vol] 4.4 g/dL Normal 3.9-4.9 [facility] Comment on above: Order Comment: Speci men Type: BLOOD SPECIMEN Ordering Facility: [facility] Address: [address] [place] [address] Performed By: #### 2 4323-8, 3016-3 #### [facility] CLIA [id number] [address] [place] [address] [place] ALP [Catalytic activity/Vol] 42 U/L Normal 34-123 [facility] Comment on above: Order Comment: Speci men Type: BLOOD SPECIMEN Ordering Facility: [facility] Address: [address] [place] [address] Performed By: #### 2 4323-8, 3016-3 #### [facility] CLIA [id number] [address] [place] [address] [place] ALT [Catalytic activity/Vol] 14 U/L Normal 7-38 [facility] Comment on above: Order Comment: Speci men Type: BLOOD SPECIMEN Ordering Facility: [facility] Address: [address] [place] [address] Performed By: #### 2 4323-8, 3016-3 #### [facility] CLIA [id number] [address] [place] [address] [place] Anion gap [Moles/Vol] 13 mmol/L Normal 8-15 [facility] Comment on above: Order Comment: Speci men Type: BLOOD SPECIMEN Ordering Facility: [facility] Address: [address] [place] [address] Performed By: #### 2 4323-8, 3016-3 #### [facility] CLIA [id number] [address] [place], [place] [id number] [place] AST [Catalytic activity/Vol] 18 U/L Normal 13-35 [facility] Comment on above: Order Comment: Speci men Type: BLOOD SPECIMEN [facility] [facility] Address: [address] [place] [address] Performed By: #### 2 4323-8, 3015-3 #### [facility] CLIA [id number] [address] [place] [address] [place] Bilirubin [Mass/Vol] 0.4 mg/dL Normal 0.2-1.3 [facility] Comment on above: Order Comment: Speci men Type: BLOOD SPECIMEN Ordering Facility: [facility] Address: [address] [place] [address] Performed By: #### 2 4323-8, 6-3 #### [facility] CLIA [id number] [address] [place] [address] [place] Calcium [Mass/Vol] 9.1 mg/dL Normal 8.5-10.2 [facility] Comment on above: Order Comment: Speci men Type: BLOOD SPECIMEN Ordering Facility: [facility] Address: [address] [id number] Performed By: #### 2 4323-8, 3016-3 #### [facility] CLIA [id number] [address] [place] [address] [place] Chloride [Moles/Vol] 102 mmol/L Normal 98-107 [facility] Comment on above: Order Comment: Speci men Type: BLOOD SPECIMEN Ordering Facility: [facility] Address: [address] [place] [address] Performed By: #### 2 4323-8, 3016-3 #### [facility] CLIA [id number] [address] [place] [address] [place] CO2 [Moles/Vol] 23 mmol/L Normal 22-30 [facility] Comment on above: Order Comment: Speci men Type: BLOOD SPECIMEN Ordering Facility: [facility] Address: [address] [place] [address] Performed By: #### 2 4323-8, 6-3 #### [facility] CLIA [id number] [address] [place] [address] [place] Creatinine [Mass/Vol] 1.02 mg/dL High 0.58-0.96 [facility] Comment on above: Order Comment: Speci men Type: BLOOD SPECIMEN Ordering Facility: [facility] Address: [address] [place] [address] Performed By: #### 2 4323-8, 3015-3 #### [facility] CLIA [id number] [address] [place] [address] [place] Creatinine and Glomerular filtration rate.predicted panel (S/P/Bld) 70 mL/min/1.73m??? Normal >=60 [facility] Comment on above: Order Comment: Speci men Type: BLOOD SPECIMEN Ordering Facility: [facility] Address: [address] [place] [address] Result Comment: Eufemia mated Glomerular Filtration Rate (eGFR) is calculated using the 2020 CKD-EPI creatinine equation. This equation utilizes serum creatinine, sex, and age as parameters. The creatinine assay has traceable calibration to isotope dilution-mass spectrometry. Refer to KDIGO guidelines for clinical interpretation. In patients with unstable renal function, e.g. those with acute kidney injury, the eGFR may not accurately reflect actual GFR. Performed By: #### 2 4323-8, 3016-3 #### [facility] CLIA [id number] [address] [place] [address] [place] Glucose [Mass/Vol] 84 mg/dL Normal 74-99 [facility] Comment on above: Order Comment: Specwilma men Type: BLOOD SPECIMEN Ordering Facility: [facility] Address: [address] [place] [address] Result Comment: The [place] Diabetes Association (ADA) provides guidance for cutoff values for fasting glucose and random glucose. The ADA defines fasting as no caloric intake for at least 8 hours. Fasting plasma glucose results between 100 to 125 mg/dL indicate increased risk for diabetes (prediabetes). Fasting plasma glucose results greater than or equal to 126 mg/dL meet the criteria for diagnosis of diabetes. In the absence of unequivocal hyperglycemia, results should be confirmed by repeat testing. In a patient with classic symptoms of hyperglycemia or hyperglycemic crisis, random plasma glucose results greater than or equal to 200 mg/dL meet the criteria for diagnosis of diabetes. Reference: Standards of Medical Care in Diabetes 2016, [place] Diabetes Association. Diabetes Care. 2016.39(Suppl 1). Performed By: #### 2 4323-8, 3015-3 #### [facility] CLIA [id number] [address] [place] [address] [place] Potassium [Moles/Vol] 4.0 mmol/L Normal 3.7-5.1 [facility] Comment on above: Order Comment: Ze hartman Type: BLOOD SPECIMEN Ordering Facility: [facility] Address: [address] [place] [address] Performed By: #### 2 4323-8, 3015-3 #### [facility] CLIA [id number] [address] [place] [address] [place] Protein [Mass/Vol] 7.0 g/dL Normal 6.3-8.0 [facility] Comment on above: Order Comment: Ze hartman Type: BLOOD SPECIMEN Ordering Facility: [facility] Address: [address] [place] [address] Performed By: #### 2 4323-8, 6-3 #### [facility] CLIA [id number] [address] [place], [place] [id number] [place] Sodium [Moles/Vol] 138 mmol/L Normal 136-144 [facility] Comment on above: Order Comment: Ze hartman Type: BLOOD SPECIMEN Ordering Facility: [facility] Address: [address] [place] [address] Performed By: #### 2 4323-8, 3016-3 #### [facility] CLIA [id number] [address] [place] [address] [place] Urea nitrogen [Mass/Vol] 10 mg/dL Normal 7-21 [facility] Comment on above: Order Comment: Ze hartman Type: BLOOD SPECIMEN Ordering Facility: [facility] Address: [address] [place] [address] Performed By: #### 2 4323-8, 3016-3 #### [facility] CLIA [id number] [address] [place] [address] [place] HbA1c (Bld)on 07-25-2024 Average glucose Estimated from glycated hemoglobin (Bld) [Mass/Vol] 88 mg/dL Normal [facility] Comment on above: Order Comment: Ze hartman Type: BLOOD SPECIMEN Ordering Facility: [facility] Address: [address] [place] [address] Result Comment: eAG: (Estimated average glucose) is a calculated value from HgbA1c and is ambulatory service representative of the average blood glucose level in the last 2-3 month period. Performed By: #### 5 5454-3 #### [facility] CLIA [id number] [address] [place] [address] [place] HbA1c (Bld) [Mass fraction] 4.7 % Normal 4.3-5.6 [facility] Comment on above: Order Comment: Ze hartman Type: BLOOD SPECIMEN Ordering Facility: [facility] Address: [address] [place] [address] Result Comment: Amer [place] Diabetes Association guidelines indicate that patients with HgbA1c in the range 5.7-6.4% are at increased risk for development of diabetes, and intervention by lifestyle modification may be beneficial. HgbA1c greater or equal to 6.5% is considered diagnostic of diabetes. Performed By: #### 5 5454-3 #### [facility] CLIA [id number] [address] [place] [address] [place] Insulin SerPl-aCncon 025 Insulin Qn 10.8 uU/mL Normal 2.6-24.9 [facility] Comment on above: Order Comment: Speci men Type: BLOOD SPECIMEN Ordering Facility: [facility] Address: [address] [place] [address] Performed By: #### 2 0448-7 #### [facility] CLIA [id number] [address] [place] [address] [place] TSH SerPl-aCncon 07-25-2024 TSH Qn 2.840 m[IU]/L Normal 0.270-4.200 [facility] Comment on above: Order Comment: Speci men Type: BLOOD SPECIMEN Ordering Facility: [facility] Address: [address] [place] [address] Result Comment: If t he patient is , TSH reference range varies by gestational period: First Trimester (weeks 9-12): 0.180-2.990 mIU/L Second Trimester: 0.110-3.980 mIU/L Third Trimester: 0.480-4.710 mIU/L Claude De La Garza et al. A Practical Approach for the Verifications and Determination of Site- and Trimester-Specific Reference Intervals for Thyroid Function tests in . Thyroid, 2019:29:3:412-420. Hector Rae, et al. 2017 Guidelines of the [place] Thyroid Association for the Diagnosis and Management of Thyroid Disease during and the . Thyroid, 2017:27:3:315-389. Performed By: #### 2 4323-8, 3016-3 #### [facility] CLIA [id number] [address] [place] [address] [place] CNOVon 07-05-2024 CNOV Office Visit (OBGYWM ) LINDA CROWE ([id number]) 1980 F Date Time Provider Department 07/05/24 9:20 AM MYRA MORA OBHUMBERTO During your visit today, we recorded the following information about you: Weight Height 83.5 kg 1.727 m Myra Mora MD 07/05/2024 11:50 AM Signed Patient Summary: Linda Crowe is a 44 year old female with obesity who presents for an initial evaluation of overweight/obesity to treat and prevent co-morbidities and is interested in combination of behavioral and pharmacological. Motivation for seeking treatment for the disease of overweight/obesity : she wants a healthy bmi Goal weight: 155 lb Lowest recall weight: 150 lb Highest non- recall weight: 184 lb Patient identified barriers to weight loss: mindful eating Weight History: She reports no family history of obesity and late adulthood (covid )weight gain. She states her weight gain is related to the following factors, including onset of premenopause, consumption of unhealthy foods and to much food, and stress. Difficulty losing weight? Yes History of weight loss with regain? 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 Exercise: Regular exercise: yes run 3 days a week 6miles 3 x week (increased from 3mi) Strength/resistance exercise:yes cross fit 3 days a week Barriers to regular exercise? no Work-related activity:Sedentary. 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 Contraception: combined hormonal contraceptives Obesity ROS/ FHx GEN: Fatigue:yes CV: h/o palpitations/cardiac arrhythmia, Chest pain: no HTN: no PULM: Asthma:no GI: GERD:no ; Gallstones:no ; Fatty liver disease:no Pancreatitis: no MSK: Joint Pain:no : Nephrolithiasis: no Symptoms of PCOS: no NEURO: Migraines/SAAB: no; H/o seizures: no Glaucoma:no; Cataracts no Symptoms of or History of pseudotumor cerebri:no Family or personal History of MEN2 or Medullary thyroid cancer: no Diet/Nutrition overview: Awake - 4:30am B - 2 eggs sometimes with toast, sometimes cereal- raisin bran crunch, protein granola and almond milk after work out - protein shake- ascent (25g, 2-4g carbs) S - nut and cheese snack pack, kind protein bar, cheese stick , pop corn, pretzels L - vegan/sugar free plant based (sakara)- half the time other time eating out- welsh, protein shake if has vegan. S - 1/4 of the time- pretzels or popcorn- whatever is at office- stress?? D - beef or chicken, sometimes fish- sides- green vegetable and rice/beans. eats out 1/2 the time- chipolte - basil- avocado saleem- chicken or shrimp w/ brown rice, panera- salad or francisco cheese soup, S - wine 2-3 x week occasional ice cream 1 x week Fluids: water (40-100oz), coffee, occasional beer, unswt. Van almond milk, wine occasional Bedtime - 9pm Quality of diet: 24hr recall suggests in between diet. Characterization of diet:Structured and unhealthy snacking. Appraisal Coordinator of impaired eating habits:lack of satiety, mindlessness , and stress Eating Disorder no Cravings: salty Sleep Duration: 7 hours. KIERSTEN NO ; CPAP NO Stress Stress:yes , Cause:Work Obesity Related Comorbidities: Prior Weight Loss Surgery:No PAST MEDICAL HISTORY Diagnosis Date Abnormal glandular Papanicolaou smear of cervix 2003,2009 Abn. Pap smear (cervix) Other int derangement knee Patellar Subluxation--Right Swine Flu May 2009 PAST SURGICAL HISTORY Procedure Laterality Date COLPOSCOPY CERVIX UPPER/ADJACENT VAGINA Colposcopy PAST SURGICAL HISTORY OF 2003 Right Pinky Finger (Two Surgeries after Broke Finger) PAST SURGICAL HISTORY OF ORAL SURGERY FAMILY HISTORY Problem Relation Age of Onset Lung Cancer Father Cancer Maternal Grandmother Throat Diabetes Maternal Grandmother Hypertension Maternal Grandfather Diabetes Paternal Grandmother Heart Paternal Grandfather Social History Tobacco Use Smoking status: Never Smokeless tobacco: Never Vaping Use Vaping status: Never Used Substance Use Topics Alcohol use: Yes Alcohol/week: 6.0 - 7.0 standard drinks of alcohol Types: 4 Glasses of Wine (5oz), 2 - 3 Cans of Beer (12oz) per week Comment: Occasionally Drug use: No PE Ht 172.7 cm (5' 8) Wt 83.5 kg (184 lb) LMP 12/03/2016 No BMI 27.98 kg/m? Waist Circumference: 37 Neck Circumference: NA GENERAL: Female in NAD. Mixed central and gluteofemoral adiposity. SKIN: acanthosis nigricans no, Skin tags: no Hirsutism: no HEENT: PERRL, No supraclavicular adiposity. No dorsal adiposity. ABDOMEN: Protuberant ; EXTREMITIES (more content not included)... Normal [facility] 06[facility]29-2024 [facility] ([facility]) LINDA CROWE ([id number]) 1980 F Date Time Provider Department 06/29/24 MYRA MORA OBGYWM During your visit today, we recorded the following information about you: Weight Height 81.6 kg 1.735 m Myra Mora MD 06/29/2024 10:10 AM Signed Please add patient to my schedule Jul 05 9:20am for NEW WEIGHT MGMT. She knows she is to arrive 20-30 min ahead of that time. Please have Luis Daniel Moss add appropriate slot on schedule for her. Thank you. Allergies As of Date: 06/29/2024 Noted Allergy Reaction AMOXICILLIN 07/11/2001 2 - Rash Comments: CHILDHOOD REACTION Date Reviewed: 06/01/2023 Reviewed by: Aidan Hill APRN.PIE BOTTOMER - Fully Assessed Primary Visit Diagnosis:Overweight with body mass index (BMI) of 27 to 27.9 in adult [E66.3, Z68.27] Order(s):CONSULT TO [facility] WEIGHT MANAGEMENT PROGRAM [[id number]] Order #: [id number]: 1 FUTURE Prescriptions as of 07/06/2024 - Drospirenone-Ethinyl Estradiol (RITU, 28,) 3-0.02 mg per tablet Take 1 tablet by mouth once daily. - topiramate (TOPAMAX) 50 mg tablet Take 1 tablet by mouth daily at bedtime. Problem List As Of Date 06/29/2024 Noted Resolved Supervision of normal first [Z34.00] 07/28/2011 04/17/2012 Mastitis, [O91.22] 04/17/2012 05/14/2013 Short interval between pregnancies complicating*05/03/20 13 05/14/2013 complication [O90.89] 05/03/2013 05/14/2013 History of miscarriage, currently [O09*07/03/2013 06/20/2014 History of headache [Z87.898] 07/03/2013 06/20/2014 Supervision of other normal [Z34.80] 10/01/2013 06/20/2014 Encounter Status:Closed by MARLENE OWUSU on 07/06/24 Normal [facility] SCRN MAMM (CAD)W/NEY BILATo n 05-25-2024 SCRN MAMM (CAD)W/NEY BILAT [facility] [address] [place] [id number] SCRN MAMM (CAD)W/NEY BILAT MR#: [id number] Acct: [id number] Name: LINDA CROWE Rep #: [id number] : 1980 F 44 From: Eduardo kidd MD PCP: Dr. Stacey Velasco MD Status: REG [facility] Study: SCRN MAMM (CAD)W/NEY BILAT Date of Exam: 05/05 08/27 Exam# [id number] Ordering Dr: Lynda Rivera [id number] MAMMOGRAPHY - BILATERAL SCREENING REASON FOR EXAM: Female, 44 years old. Routine annual screening examination. PERTINENT HISTORY: Non-contributory. TECHNIQUE: Digital bilateral breast ney (3D mammographic acquisition) in the CC and MLO projections. 2-D mediolateral oblique (MLO) and craniocaudad (CC) views of both breasts were obtained. CAD: Full Field Digital Mammography with Computer Added Detection was performed. COMPARISON: Comparison is made with prior study dated February 18, 2023 and February 11, 2022. FINDINGS: Breast Composition: The breasts are extremely dense, which lowers the sensitivity of mammography. There are no dominant masses or suspicious calcifications. No other significant abnormalities are identified. There has been no significant change since the prior study. BI/SCRN MAMM (CAD)W/NEY BILAT IMPRESSION: Stable bilateral screening mammogram. Yearly follow-up mammogram recommended. (A) ASSESSMENT CATEGORY: BIRADS Category 1: Negative. A letter regarding these results will be sent to the patient by the facility within 30 days. Approximately 10% of breast cancers are not detected by mammography. A normal mammogram should not delay biopsy of a clinically suspicious abnormality. [id number] Electronically Signed: Eduardo Flores MD at 15:25 EST , CC: Dr. Stacey Velasco MD; Dr. Lynda Rivera MD Chief Radiation Therapist: Signed Normal [facility] PAP IG HPV APTIMA 16/18,45on 05-16-2024 ADEQ Comment Normal . [facility] Comment on above: Order Comment: Speci men Comment: [id number] Specimen Comment: Source.............Cervix;Endocervix Specimen Comment: No. of containers..01 ThinPrep Vial Result Comment: Sati sfactory for evaluation. Endocervical and/or squamous metaplastic cells (endocervical component) are present. Performed By: #### L 7400.0280 #### [facility] [address] [place], [place], [id number] COMM . Normal . [facility] Comment on above: Order Comment: Speci men Comment: [id number] Specimen Comment: Source.............Cervix;Endocervix Specimen Comment: No. of containers..01 ThinPrep Vial Performed By: #### L 7400.0280 #### [facility] [address] [place], [place], [id number] COMMENT Comment Normal . [facility] Comment on above: Order Comment: Speci men Comment: [id number] Specimen Comment: Source.............Cervix;Endocervix Specimen Comment: No. of containers..01 ThinPrep Vial Result Comment: This liquid based ThinPrep(R) pap test was screened with the use of an image guided system. Performed By: #### L 7400.0280 #### [facility] [address] [place], [place], [id number] DIAG Comment Normal . [facility] Comment on above: Order Comment: Speci men Comment: [id number] Specimen Comment: Source.............Cervix;Endocervix Specimen Comment: No. of containers..01 ThinPrep Vial Result Comment: NEGA TIVE FOR INTRAEPITHELIAL LESION OR MALIGNANCY. Performed By: #### L 7400.0280 #### [facility] [address] [place], [place], [id number] HPV APTIMA, HR Negative Normal Negative [facility] Comment on above: Order Comment: Speci men Comment: [id number] Specimen Comment: Source.............Cervix;Endocervix Specimen Comment: No. of containers..01 ThinPrep Vial Result Comment: This nucleic acid amplification test detects fourteen high- risk HPV types (16,18,31,33,35,39,45,51,52,56,58,59,66,68) without differentiation. Performed By: #### L 7400.0280 #### [facility] [address] [place], [place], [address] HPV Miryam Rfx Comment Normal . [facility] Comment on above: Order Comment: Speci men Comment: [id number] Specimen Comment: Source.............Cervix;Endocervix Specimen Comment: No. of containers..01 ThinPrep Vial Result Comment: Crit eria not met, HPV Genotype not performed. Performed at: - [facility] [id number] Human Resources District Manager: Felisa Romero MD, Phone: [phone] Performed at: = - [facility] [id number] Human Resources District Manager: Felisa Romero MD, Phone: [phone] Performed By: #### L 7400.0280 #### [facility] [address] [place], [place], [address] PAPSMR Comment Normal . [facility] Comment on above: Order Comment: Speci men Comment: [id number] Specimen Comment: Source.............Cervix;Endocervix Specimen Comment: No. of containers..01 ThinPrep Vial Result Comment: The Pap smear is a screening test designed to aid in the detection of premalignant and malignant conditions of the uterine cervix. It is not a diagnostic procedure and should not be used as the sole means of detecting cervical cancer. Both false-positive and false-negative reports do occur. Performed By: #### L 7400.0280 #### [facility] [address] [place], [place], [address] PERFORM Comment Normal . [facility] Comment on above: Order Comment: Speci men Comment: [id number] Specimen Comment: Source.............Cervix;Endocervix Specimen Comment: No. of containers..01 ThinPrep Vial Result Comment: Mary Kate Orellana, Laser Technician (ASCP) Performed By: #### L 7400.0280 #### [facility] [address] [place], [place], [id number] Head Of Integrated Media Office Visit Reporton 05-09-2024 Head Of Integrated Media Office Visit Report [facility] [address], [address] [place] [address] OFFICE VISIT Date of Service: 05/09/24 MR#: [id number] Acct: [id number] Name: LINDA CROWE Rep #: [id number] : 1980 Provider: Dr. Lynda sosa MD Age/Sex: 44/F Location: [facility] Status: Signed with Addenda ADDENDUM by Dr. 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 Is patient in pain?: No Feel stressed/tense/nervou s/anxious/difficulty sleeping: not at all Allergies amoxicillin (Amoxicillin) Allergy (Verified 05/09/24 08:10) Rash Medications ???Medication ???Instructions ???Recorded ???Confirmed ???Type Saccharomyces boulardii 250 mg 250 mg PO BID 05/02/23 05/09/24 History capsule (Digest Probiotic (S.boalaynadii)) drospirenone 3 mg-ethinyl See Rx Instructions .Route 05/02/23 05/09/24 Rx estradiol 0.02 mg tablet .COMPLEX #112 tabs multivitamin (Daily Multi-Vitamin 1 tab PO DAILY 05/02/23 05/09/24 History tablet) Is last menstrual period known: No Post menopausal: No Patient : No : No [facility] Medical History Genetic testing of female COVID-19 Abnormal Pap smear of cervix Surgical History pinky finger surgery Family History Grandfather Heart disease Myocardial infarction Grandmother Cancer esophageal cancer Social History (Updated 05/09/24 @ 08:12 by Anh Weaver) current occupational status: employed current occupation: [employer] Smoking Status: Never smoker alcohol intake: current details: social substance use type: does not use caffeine: Yes frequency: 5-6 times per week seatbelt use: always do you feel safe at home: Yes additional social history: Rola MENCHACA Patient works at [employer] History 3 Elective abortions Hx Para 2 Spontaneous abortions Hx # Term Pregnancies Ectopic pregnancies Hx # Pregnancies Multiple births # of living children Past Pregnancies Del. Date Name GA/Weeks Outcome Route Bth Weight Gen Labor Lgth Anesthesia Del Locatn Provider FOB Unknown 2011 Rodrigo ALEJANDRO Unknown 2013 Dionne ALEJANDRO [facility] Encounter for routine gynecological examination Details: LINDA CROWE is a 44 year old who presents for annual exam. dad has recurrence of lung cancer Last PAP: 01/15/2020 - normal History of abnormal PAP: Last mammogram: 02/18/2023 - normal History of abnormal mammogram: Colon cancer screening: Other preventative health care screenings: Dr. Velasco is PCP - monitors routine blood work Female Reproductive History Cycle Length: 21-35 Bleeding Duration: 5 Questions: metorrhagia: No, sexually active: Yes, dyspareunia: No and PCB: No Menopausal Symptoms: No hot flashes, No night sweats, No weight change, No mood changes, No difficulty concentrating, No sleep problems and No change in libido ROS Const Constitutional: Reports as per HPI; Denies fatigue, increased appetite, poor appetite, night sweats, weight gain or weight loss Cardio Card: Denies chest pain Resp Resp: Denies cough or dyspnea GI GI: Reports as per HPI; Denies abdominal pain, bloating, constipation, nausea or vomiting : Reports as per HPI and other; Denies difficulty voiding, dysuria, hematuria, hot flashes, nipple discharge, pelvic pain, prolapse symptoms, urinary frequency, urinary incontinence, urinary urgency, vaginal discharge, vaginal dryness, vaginal odor or vaginal pruritus Skin Skin/Breast: Denies changing lesions, breast mass, breast pain, breast skin changes or nipple discharge Psych Psych: Denies anxiety, change in libido, depression or difficulty concentrating Exam Const General: cooperative, healthy appearing, comfortable, no acute distress, well developed and well groomed [facility] Head: normal to inspection and normocephalic Ears: hearing grossly normal bilaterally and external ears normal Nose: external nose normal Face and sinus: normal facial exam Neck Neck: normal visual inspection, full ROM and no lymphadenopathy Thyroid: thyroid normal Chest Chest palpation inspection: normal inspection of the chest Breast inspection: normal ins (more content not included)... Normal [facility] Basophil percentageOrdered B y: Dr. Velasco on 11-10-2022 Chloride [Moles/Vol] 106 mmol/L 98-107 [facility] Cholesterol [Mass/Vol] 137 mg/dL <200 [facility] Comment on above: <200 mg/dL Desirable 200-240 mg/dL Borderline >240 mg/dL High Risk Glucose [Mass/Vol] 85 mg/dL 74-106 [facility] Potassium [Moles/Vol] 4.4 mmol/L 3.5-5.1 [facility] Sodium [Moles/Vol] 140 mmol/L 136-145 [facility] Triglyceride [Mass/Vol] 79 mg/dL <199 [facility] Comment on above: The drugs N-Acetylcy steine and Metamizole may falsely depress this assay.Serum Triglycerides Reference Interval Normal <150 mg/dL Borderline high 150 - 199 mg/dL High 200 - 499 mg/dL Very High > or = 500 mg/dL Laboratory - Chemistry and C hemistry - challengeOrdered By: Dr. Velasco on 11-10-2022 CO2 [Moles/Vol] 25.0 mmol/L 21.0-32.0 [facility] Urea nitrogen/Creatinine [Mass ratio] 10.1 mg/mg 10-20 [facility] No Panel InformationOrdered By: Dr. Velasco on 11-10-2022 Estimated GFR (MDRD) Amer 79 mL/min >60 [facility] Comment on above: GFR Calc Estimated GFR (MDRD) Non-Af Amer 65 mL/min >60 [facility] Comment on above: Non- GFR Calc Thyroid Stimulating Hormone (TSH) 1.47 uIU/mL 0.358-3.74 [facility] Vitamin D 25-Hydroxy 36.1 ng/mL [facility] Comment on above: Vitamin D 25(OH) Sta tus Range Deficiency <20 ng/mL (50nmol/L) Insufficiency 20 - 30 ng/mL (50 - 75 nmol/L) Sufficiency 30 - 100 ng/mL (75 - 250 nmol/L) Toxicity >100 ng/mL (>250 nmol/L) Serum or plasma calcium mikcie urement (mass/volume)Ordered By: Dr. Velasco on 11-10-2022 Calcium [Mass/Vol] 8.9 mg/dL 8.5-10.1 [facility] Serum or plasma cholesterol in HDL measurement (mass/volume)Ordered By: Dr. Velasco on 11-10-2022 Cholesterol in HDL [Mass/Vol] 64 mg/dL >40 [facility] Comment on above: The drugs N-Acetylcy steine and Metamizole may falsely depress this assay. Reference Range HDL <40 mg/dL Low HDL Cholesterol HDL >or= 60 mg/dL High HDL Cholesterol Serum or plasma cholesterol in VLDL measurement (mass/volume)Ordered By: Dr. Velasco on 11-10-2022 Cholesterol in VLDL [Mass/Vol] 16 mg/dL 5-40 [facility] Serum or plasma creatinine m easurement (mass/volume)Ordered By: Dr. Velasco on 11-10-2022 Creatinine [Mass/Vol] 1.00 mg/dL 0.55-1.02 [facility] Comment on above: The validity of the calculated GFR & GFRAA in patients over 70 years has not been determined. Clinical correlation is essential. Serum or plasma low density lipoprotein (LDL) cholesterol measurement (mass/volume)Ordered By: Dr. Velasco on 11-10-2022 Cholesterol in LDL [Mass/Vol] 57 mg/dL 0-130 [facility] Serum or plasma urea nitroge n measurement (mass/volume)Ordered By: Dr. Velasco on 11-10-2022 Urea nitrogen [Mass/Vol] 10 mg/dL 7-18 [facility] Thin prep Papanicolaou smear with manual screeningOrdered By: Dr. Velasco on 11-10-2022 Thin prep Papanicolaou smear with manual screening 9 5-15 [facility] Basophil percentageon 2021 Bilirubin [Mass/Vol] 0.20 mg/dL 0.20-1.00 [facility] Work Phone: Comment on above: For patients on eltr ombopag therapy, use of Dimension Wildrose TBIL is not recommended. Chloride [Moles/Vol] 106 mmol/L 98-107 [facility] Work Phone: [phone] Glucose [Mass/Vol] 84 mg/dL 74-106 [facility] Work Phone: Potassium [Moles/Vol] 4.0 mmol/L 3.5-5.1 [facility] Work Phone: Protein [Mass/Vol] 7.0 g/dL 6.4-8.2 [facility] Work Phone: [phone] Sodium [Moles/Vol] 137 mmol/L 136-145 [facility] Work Phone: [phone] Laboratory - Chemistry and C hemistry - challengeon 10-26-2021 ALP [Catalytic activity/Vol] 46 U/L 45-117 [facility] Work Phone: [phone] ALT [Catalytic activity/Vol] 26 U/L 13-56 [facility] Work Phone: [phone] CO2 [Moles/Vol] 24.0 mmol/L 21.0-32.0 [facility] Work Phone: Globulin (S) [Mass/Vol] 3.6 g/dL 2.2-4.2 [facility] Work Phone: Urea nitrogen/Creatinine [Mass ratio] 13.5 mg/mg 10-20 [facility] Work Phone: No Panel Informationon 10-26 Estimated GFR (MDRD) Amer 82 mL/min >60 [facility] Work Phone: Comment on above: GFR Calc Estimated GFR (MDRD) Non-Af Amer 68 mL/min >60 [facility] Work Phone: Comment on above: Non- GFR Calc Serum or plasma albumin mickie urement (mass/volume)on 10-26-2021 Albumin [Mass/Vol] 3.4 g/dL 3.2-5.0 [facility] Work Phone: Serum or plasma albumin/glob ulin mass ratioon 10-26-2021 Albumin/Globulin [Mass ratio] 0.9 {ratio} 0.9-2.4 [facility] Work Phone: Serum or plasma calcium mickie urement (mass/volume)on 10-26-2021 Calcium [Mass/Vol] 8.7 mg/dL 8.5-10.1 [facility] Work Phone: Serum or plasma creatinine m easurement (mass/volume)on 10-26-2021 Creatinine [Mass/Vol] 0.96 mg/dL 0.55-1.02 [facility] Work Phone: Comment on above: The validity of the calculated GFR & GFRAA in patients over 70 years has not been determined. Clinical correlation is essential. Serum or plasma urea nitroge n measurement (mass/volume)on 10-26-2021 Urea nitrogen [Mass/Vol] 13 mg/dL 7-18 [facility] Work Phone: Thin prep Papanicolaou smear with manual screeningon 10-26-2021 Thin prep Papanicolaou smear with manual screening 19 U/L 15-37 [facility] Work Phone: Thin prep Papanicolaou smear with manual screening 7 5-15 [facility] Work Phone: Absolute lymphocyte counton 10-06-2021 Lymphocytes Auto (Unsp spec) [#/Vol] 2.92 10*3/uL 0.83-4.51 [facility] Work Phone: [phone] Basophil percentageon 2021 Basophils/100 WBC (Bld) 0.4 % 0-1 [facility] Work Phone: [phone] Bilirubin [Mass/Vol] 0.20 mg/dL 0.20-1.00 [facility] Work Phone: [phone] Comment on above: For patients on eltr ombopag therapy, use of Dimension [place] TBIL is not recommended. Chloride [Moles/Vol] 106 mmol/L 98-107 [facility] Work Phone: Eosinophils/100 WBC (Bld) 0.4 % 0-5 [facility] Work Phone: [phone] Glucose [Mass/Vol] 90 mg/dL 74-106 [facility] Work Phone: Neutrophils (Bld) [#/Vol] 4.3 10*3/uL 2.0-7.7 [facility] Work Phone: [phone] Neutrophils/100 WBC (Bld) 55.4 % 47-70 [facility] Work Phone: [phone] Potassium [Moles/Vol] 3.9 mmol/L 3.5-5.1 [facility] Work Phone: Protein [Mass/Vol] 7.0 g/dL 6.4-8.2 [facility] Work Phone: Sodium [Moles/Vol] 138 mmol/L 136-145 [facility] Work Phone: [phone] WBC (Bld) [#/Vol] 7.7 10*3/uL 4.4-11.0 [facility]: Blood erythrocytes count (nu mber/volume)on 10-06-2021 RBC (Bld) [#/Vol] 4.25 10*6/uL 4.2-5.4 [facility]: Blood hemoglobin measurement (mass/volume)on 10-06-2021 Hemoglobin (Bld) [Mass/Vol] 13.1 g/dL 12.0-15.0 [facility] Work Phone: Blood lymphocytes/100 leukoc yteson 10-06-2021 Lymphocytes/100 WBC (Bld) 38.0 % 19-41 [facility] Work Phone: Blood monocytes/100 leukocyt eson 10-06-2021 Monocytes/100 WBC (Bld) 5.5 % 0-10 [facility] Work Phone: Blood platelet mean volumeon 10-06-2021 Platelet mean volume (Bld) [Entitic vol] 11.2 fL 6.2-12.0 [facility] Work Phone: Determination of erythrocyte mean corpuscular volume (MCV)on 10-06-2021 MCV (RBC) [Entitic vol] 92.7 fL 81-99 [facility] Work Phone: Hematocrit Auto (Bld) [Volum e fraction]on 10-06-2021 Hematocrit (Bld) [Volume fraction] 39.4 % 37-47 [facility] Work Phone: Laboratory - Chemistry and C hemistry - challengeon 10-06-2021 ALP [Catalytic activity/Vol] 40 U/L 45-117 [facility] Work Phone: ALT [Catalytic activity/Vol] 23 U/L 13-56 [facility] Work Phone: CO2 [Moles/Vol] 27.0 mmol/L 21.0-32.0 [facility] Work Phone: Globulin (S) [Mass/Vol] 3.3 g/dL 2.2-4.2 [facility] Work Phone: Urea nitrogen/Creatinine [Mass ratio] 11.8 mg/mg 10-20 [facility] Work Phone: Laboratory - Hematology and Cell countson 10-06-2021 Erythrocyte distribution width (RBC) [Entitic vol] 41.2 fL 35.1-43.9 [facility] Work Phone: Erythrocyte distribution width (RBC) [Ratio] 12.1 % 11.6-14.6 [facility] Work Phone: Immature granulocytes/100 WBC (Bld) 0.300 % 0.0-0.9 [facility] Work Phone: Comment on above: IG% - Immature Granu locytes (promyelocytes, myelocytes and metamyelocytes) > 1% indicates that a LEFT SHIFT is Present. MCH (RBC) [Entitic mass] 30.8 pg 27.0-32.0 [facility] Work Phone: Nucleated RBC/100 WBC (Bld) [Ratio] 0 % 0-5 [facility] Work Phone: MCHC Auto (RBC) [Mass/Vol]on 10-06-2021 MCHC (RBC) [Mass/Vol] 33.2 g/dL 32-36 [facility] Work Phone: No Panel Informationon 10-06 Estimated GFR (MDRD) Amer 71 mL/min >60 [facility] Work Phone: Comment on above: GFR Calc Estimated GFR (MDRD) Non-Af Amer 58 mL/min >60 [facility] Work Phone: Comment on above: Non- GFR Calc Platelets bldon 10-06-2021 Platelets (Bld) [#/Vol] 236 10*3/uL 150-450 [facility] Work Phone: Serum or plasma albumin mickie urement (mass/volume)on 10-06-2021 Albumin [Mass/Vol] 3.7 g/dL 3.2-5.0 [facility] Work Phone: Serum or plasma albumin/glob ulin mass ratioon 10-06-2021 Albumin/Globulin [Mass ratio] 1.1 {ratio} 0.9-2.4 [facility] Work Phone: Serum or plasma calcium mickie urement (mass/volume)on 10-06-2021 Calcium [Mass/Vol] 8.5 mg/dL 8.5-10.1 [facility] Work Phone: Serum or plasma creatinine m easurement (mass/volume)on 10-06-2021 Creatinine [Mass/Vol] 1.10 mg/dL 0.55-1.02 [facility] Work Phone: Comment on above: The validity of the calculated GFR & GFRAA in patients over 70 years has not been determined. Clinical correlation is essential. Serum or plasma urea nitroge n measurement (mass/volume)on 10-06-2021 Urea nitrogen [Mass/Vol] 13 mg/dL 7-18 [facility] Work Phone: Thin prep Papanicolaou smear with manual screeningon 10-06-2021 Thin prep Papanicolaou smear with manual screening 13 U/L 15-37 [facility] Work Phone: Thin prep Papanicolaou smear with manual screening 5 5-15 [facility] Work Phone: No Panel Informationon 07-08 POC SARS CoV-2 Antigen Positive [facility] Work Phone: Vital Signs Date Time Vital Sign Value Performing Clinician Faci lity 12-05-2024 14:54-0400 Body mass index (BMI) [Ratio] 27.67 kg/m2 Myra Alva MD Work Phone: [facility] 12-05-2024 14:54-0400 Body weight 82.56 kg Myra Alva MD Work Phone: [facility] 12-05-2024 14:54-0400 Diastolic blood pressure 76 mm[Hg] Myraghada Alva MD Work Phone: [facility] 12-05-2024 14:54-0400 Heart rate 99 /min Myra Alva MD Work Phone: [facility] 12-05-2024 14:54-0400 SaO2% (BldA) [Mass fraction] 97 % Myranathanael Alva MD Work Phone: [facility] 12-05-2024 14:54-0400 Systolic blood pressure 112 mm[Hg] Myra Alva MD Work Phone: [facility] 09-04-2024 11:15-0500 Body mass index (BMI) [Ratio] 26.91 kg/m2 Myrahgada Alva MD Work Phone: [facility] 09-04-2024 11:15-0500 Body weight 80.29 kg Myra Alva MD Work Phone: [facility] 09-04-2024 11:15-0500 Diastolic blood pressure 72 mm[Hg] Myra Alva MD Work Phone: [facility] 09-04-2024 11:15-0500 Heart rate 54 /min Myraghada Alva MD Work Phone: [facility] 09-04-2024 11:15-0500 SaO2% (BldA) [Mass fraction] 98 % Myraghada Alva MD Work Phone: [facility] 09-04-2024 11:15-0500 Systolic blood pressure 104 mm[Hg] Myra Alva MD Work Phone: [facility] 07-05-2024 09:15-0500 Body height 172.7 cm Myra Alva MD Work Phone: [facility] 07-05-2024 09:15-0500 Body mass index (BMI) [Ratio] 27.98 kg/m2 Myra Alva MD Work Phone: [facility] 07-05-2024 09:15-0500 Body weight 83.46 kg Myra Alva MD Work Phone: [facility] 06-29-2024 10:06-0500 Body height 173.5 cm Myra Alva MD Work Phone: [facility] 06-29-2024 10:06-0500 Body mass index (BMI) [Ratio] 27.13 kg/m2 Myra Alva MD Work Phone: [facility] 06-29-2024 10:06-0500 Body weight 81.65 kg Myra Alva MD Work Phone: [facility] 06-01-2023 17:04-0500 Body temperature 98.8 [degF] Aidan Hill W[employer]ATION [employer]S OPERATOR.[employer]ER Work Phone: [facility] 06-01-2023 17:04-0500 Body weight 83.01 kg Aidan Hill W[employer] RECLAMATION SYSTEMS OPERATOR.[employer]ER Work Phone: [facility] 06-01-2023 17:04-0500 Diastolic blood pressure 74 mm[Hg] Aidan Hill W[employer] RECLAMATION SYSTEMS OPERATOR.[employer] BOTT[employer]ER Work Phone: [facility] 06-01-2023 17:04-0500 Heart rate 68 /min Aidan Hill W[employer] RECLAMATION SYSTEMS OPERATOR.[employer]ER Work Phone: [facility] 06-01-2023 17:04-0500 Respiratory rate 18 /min Aidan Hill W[employer] RECLAMATION SYSTEMS OPERATOR.[employer]ER Work Phone: [facility] 06-01-2023 17:04-0500 SaO2% (BldA) [Mass fraction] 100 % Aidan Hill W[employer] RECLAMATION SYSTEMS OPERATOR.[employer]E BOTTOMER Work Phone: [facility] 06-01-2023 17:04-0500 Systolic blood pressure 112 mm[Hg] Aidan Hill APRN.CNP Work Phone: [facility] 02-11-2022 14:56-0400 Body height 175.[address] Lynda Rivera Work Phone: [facility] Work Phone: 02-11-2022 14:56-0400 Body mass index (BMI) [Ratio] 25.5 kg/m2 Dr. Lynda Rivera Work Phone: [facility] Work Phone: 02-11-2022 14:56-0400 Body weight 81.[address] Lynda Rivera Work Phone: [facility] Work Phone: 02-11-2022 14:56-0400 Diastolic blood pressure 72 mm[Hg] Dr. Lynda Rivera Work Phone: [facility] Work Phone: 02-11-2022 14:56-0400 Systolic blood pressure 98 mm[Hg] Dr. Lynda Rivera Work Phone: [facility] Work Phone: 07-08-2021 05:46-0500 Body height 175.[address] Vicente Velasco Work Phone: [facility] Work Phone: 07-08-2021 05:46-0500 Body mass index (BMI) [Ratio] 26.9 kg/m2 Dr. Vicente Velasco Work Phone: [facility] Work Phone: 07-08-2021 05:46-0500 Body temperature 98.4 [degF] Dr. Vicente Velasco Work Phone: [facility] Work Phone: 07-08-2021 05:46-0500 Body weight 82.[address] Vicente Velasco Work Phone: [facility] Work Phone: 07-08-2021 05:46-0500 Diastolic blood pressure 68 mm[Hg] Dr. Vicente Velasco Work Phone: [facility] Work Phone: 07-08-2021 05:46-0500 Heart rate 84 /min Dr. Vicente Velasco Work Phone: [facility] Work Phone: 07-08-2021 05:46-0500 Respiratory rate 16 /min Dr. Vicente Velasco Work Phone: [facility] Work Phone: 07-08-2021 05:46-0500 SaO2% (BldA) [Mass fraction] 98 % Dr. Vicente Velasco Work Phone: [facility] Work Phone: 07-08-2021 05:46-0500 Systolic blood pressure 104 mm[Hg] Dr. Vicente Velasco Work Phone: [facility] Work Phone: Encounters Encounter Date Encounter Type Care Provider Facility Start: 12-07-2024 ambulatory Stacey Velasco [facility] lity:[facility] Start: 12-05-2024 End: 12-05-2024 Patient encounter procedure Myra Alva MD Work Phone: OB/Gynecology Comment on above: Malaise and fatigue (Primary Dx); History of gestational hypertension; Elevated serum creatinine; Overweight with body mass index (BMI) of 27 to 27.9 in adult Start: 12-05-2024 End: 12-05-2024 ambulatory STACEY VELASCO Facility:[facility] Start: 12-03-2024 Encounter for genera l adult medical examination without abnormal findings Stacey Velasco [facility] Start: 09-04-2024 End: 09-04-2024 ambulatory STACEY VELASCO Facility:[facility] Start: 09-04-2024 End: 09-04-2024 Patient encounter procedure Myra Alva MD Work Phone: OB/Gynecology Comment on above: Malaise and fatigue (Primary Dx); Elevated serum creatinine; Overweight with body mass index (BMI) of 27 to 27.9 in adult Start: 07-25-2024 End: 07-25-2024 ambulatory STACEY VELASCO Facility:[facility] Start: 07-05-2024 End: 07-05-2024 ambulatory MYRA ALVA Facility:[facility] Start: 07-05-2024 End: 07-05-2024 Patient encounter procedure Myra Alva MD Work Phone: OB/Gynecology Comment on above: Malaise and fatigue (Primary Dx); Elevated serum creatinine; Screening cholesterol level; Screening for diabetes mellitus; Screening for metabolic disorder; Screening for thyroid disorder; Encounter for vitamin deficiency screening; Overweight with body mass index (BMI) of 27 to 27.9 in adult Start: 06-29-2024 End: 07-06-2024 Telephone encounter Myra Alva MD Work Phone: OB/Gynecology Start: 05-25-2024 End: 05-25-2024 ambulatory [facility] Facility:[facility] Start: 05-09-2024 End: 05-09-2024 ambulatory [facility] Facility[facility] Start: 05-09-2024 End: 05-09-2024 ambulatory [facility] Facility:[facility] Start: 06-01-2023 End: 06-01-2023 Office outpatient new 20 minutes Aidan Hill APRN.CNP Work Phone: [facility] Comment on above: Rash (Primary Dx) Start: 02-18-2023 End: 02-18-2023 ambulatory [facility] Work Phone: Start: 02-18-2023 End: 02-18-2023 Patient encounter procedure [facility] Work Phone: Start: 11-10-2022 End: 11-10-2022 ambulatory [facility] Work Phone: Start: 11-10-2022 End: 11-10-2022 Patient encounter procedure [facility] Start: 02-16-2022 End: 02-16-[address] Lynda Rivera Work Phone: [facility] Start: 02-11-2022 End: 02-11-[address] Lynda Rivera Work Phone: [facility] Start: 10-26-2021 End: 10-26-[address] Vicente Velasco Work Phone: [facility] Start: 10-06-2021 End: 10-06-[address] Vicente Velasco Work Phone: [facility] Start: 07-08-2021 End: 07-08-[address] Vicente Velasco Work Phone: [facility] Procedures Date Procedure Procedure Detail Performing Clinician Start: 02-18-2023 Screening mammography Start: 02-11-2022 Screening mammography Trenton Rivera Work Phone: Plan of Treatment Date Care Activity Detail Author Start: 02-19-2031 Urine microalbumin profile DTaP,Tdap,Td Vaccine (4 - Td or Tdap) [facility] Start: 03-07-2025 End: 03-07-2025 Patient encounter procedure 03/07/2025 9:20 AM EDT Office Visit OB/Gynecology [address] [place] [address] Myra Mora MD [address] [place] [address] weight management follow up OB/Gynecology Comment on above: weight management fo [facility] up Start: 12-05-2024 End: 12-05-2024 Patient encounter procedure 12/05/2024 3:00 PM EDT Office Visit OB/Gynecology [address] [place] [address] Myra Mora MD [address] [place] [address] weight management follow up OB[facility]Gynecology Comment on above[facility] Start: 09-04-2024 End: 09-04-2024 Patient encounter procedure 09/04/2024 11:40 AM EST Office Visit OB/Gynecology [address] [place] [address] Myra Mora MD [address] [place] [address] weight management follow up OB/Gynecology Comment on above: weight management fo [facility] Start: 07-05-2024 End: 10-04-2024 Comprehensive metabolic 2000 panel - Serum or Plasma COMPREHENSIVE METABOLIC PANEL Lab Routine Screening for diabetes mellitus Screening for metabolic disorder Overweight with body mass index (BMI) of 27 to 27.9 in adult Elevated serum creatinine Expected: 07/05/2024, Expires: 10/04/2024 [facility] Comment on above: Expected: 07/05/2024 , Expires: 10/04/2024 Start: 07-05-2024 End: 10-04-2024 Hemoglobin A1c in Blood HEMOGLOBIN A1C Lab Routine Screening for diabetes mellitus Expected: 07/05/2024, Expires: 10/04/2024 [facility] Comment on above: Expected: 07/05/2024 , Expires: 10/04/2024 Start: 07-05-2024 End: 10-04-2024 Insulin [Units/volume] in Serum or Plasma INSULIN ASSAY BLOOD Lab Routine Screening for diabetes mellitus Expected: 07/05/2024, Expires: 10/04/2024 [facility] Work Phone: Comment on above: Expected: 07/05/2024 , Expires: 10/04/2024 Start: 07-05-2024 End: 10-04-2024 Thyrotropin [Units/volume] in Serum or Plasma THYROID STIMULATING HORMONE Lab Routine Screening for thyroid disorder Overweight with body mass index (BMI) of 27 to 27.9 in adult Expected: 07/05/2024, Expires: 10/04/2024 [facility] Comment on above: Expected: 07/05/2024 , Expires: 10/04/2024 Start: 03-04-2024 Covid-19 Vaccine () Covid-19 Vaccine () [facility] Start: 03-04-2023 Covid-19 Vaccine () Covid-19 Vaccine () [facility] Start: 03-04-2023 Influenza vaccination Influenza Vacc ine (#1) [facility] Start: 07-04-2022 Depression Assessment Depression Ass essment [facility] Start: 02-16-2022 Procedure [facility] Work Phone: Start: 12-08-2021 HPV Testing HPV Testing [facility] Start: 2021 Mammography Mammogram Screening [facility] Start: 2021 Screening for malign ant neoplasm of breast Mammogram Screening [facility] Start: 12-09-2019 Pap Testing Pap Testing [facility] Start: 12-09-2019 Screening for malign ant neoplasm of cervix Cervical Cancer Screening [facility] Start: 02-06-2000 Hepatitis B Vaccine (1 of 3 - 19+ 3-dose series) Hepatitis B Vaccine (1 of 3 - 19+ 3-dose series) [facility] Start: 1999 Anxiety Screening Anxiety Screening [facility] Start: 1999 Depression Screening Depression Scre ening [facility] Start: 1999 Hepatitis C Screening Hepatitis C [facility] Start: 1999 Hepatitis C screening Hepatitis C [facility] Start: 1981 Hepatitis B Vaccine (1 of 3 - 3-dose series) Hepatitis B Vaccine (1 of 3 - 3-dose series) [facility] Procedure [facility] Work Phone: Immunizations Immunization Date Immunization Notes Care Provider Gamaliel pop 12-20-2013 tetanus toxoid, redu jordan diphtheria toxoid, and acellular pertussis vaccine, adsorbed Aidan Pendlebury WATER RECLAMATION SYSTEMS OPERATOR.PIE BOTTOMER Work Phone: [facility] 07-04-2013 influenza virus vaccine, unspecified formulation Aidan Olivarezleroy CANDELARIO.PIE BOTTOMER Work Phone: [facility] Payers Date Payer Category Payer Self-pay [id number] 2024 [employer] Blue [employer] BLUE ACCE SS PPO [id number] 2024 Unknown LYNN SAL ACCE PPO [id number] 2024-Present [phone] [address] [place] [address] PPO [id number] 2024 Unknown [id number] 2022 Private Health Insurance [facility] CHOICE PLUS [id number] 2022-Present [phone] [address] [place] [address] HMO [id number] Private Health Insurance [facility] [id number] Unknown [id number] Unknown [id number] Unknown [id number] Unknown [id number] Unknown [id number] Social History Date Type Detail Facility Start: 07-08-2021 End: 02-11-2022 Tobacco smoking status NCIS Unknown if ever smoked [facility] Start: 1980 Sex Assigned At Female [facility] Start: 06-01-2023 Tobacco smoking status NCIS Never smoked tobacco [facility] Start: 06-01-2023 Tobacco use and exposure Smokeless tobacco non-user [facility] Start: 06-01-2023 End: 09-04-2024 Alcohol intake Current drinker of alcohol (finding) [facility] Start: 06-01-2023 End: 07-05-2024 History of Social function [facility] Start: 06-01-2023 End: 07-05-2024 Tobacco use panel [facility] Start: 12-08-2016 Alcohol Comment Occasionally [facility] Start: 1980 Sex Assigned At Not on file [facility] National Score (1-100), lower number is lower risk 60 [facility] Functional Status Date Assessment Result Facility 06-20-2014 Are you deaf, or do you have serious difficulty hearing No 06/20/2014 11:25 AM Carmita Eubanks [facility] Work Phone: 06-20-2014 Are you blind, or do you have serious difficulty seeing, even when wearing glasses No 06/20/2014 11:25 AM Carmita Eubanks [facility] 06-20-2014 Do you have serious difficulty walking or climbing stairs No 06/20/2014 11:25 AM Carmita Eubanks [facility] 06-20-2014 Do you have difficul ty dressing or bathing No 06/20/2014 11:25 AM Carmita Eubanks [facility] 06-20-2014 Because of a physica l, mental, or emotional condition, do you have difficulty doing errands alone such as visiting a physician's office or shopping No 06/20/2014 11:25 AM Carmita Eubanks [facility] Mental Status Date Assessment Result Facility 06-20-2014 Because of a physica l, mental, or emotional condition, do you have serious difficulty concentrating, remembering, or making decisions No 06/20/2014 11:25 AM Carmita Eubanks [facility] Clinical Notes 10-01-2013 to 12-05-2024 Patient InstructionsMyra Mora MD - 12/05/2024 3:00 PM EDTPatient InstructionsMyra Mora MD - 09/04/2024 11:40 AM ESTPatient Instructions Note Date & Type Note Facility 12-05-2024 Instructions Myra Mora MD - 12/05/2024 5:09 PM EDT Images from the original note were not included. - Prescription for phentermine sent to the hospital pharmacy: take one tablet each morning when you wake up. If you re sensitive to stimulants, start with half a tablet for a couple of days, then advance to a full tablet. Avoid taking it later in the day and limit coffee to one cup to prevent sleep issues. You can stop it at any time without tapering, and you ll need to return every three months for a refill. - If you experience difficulty sleeping or feel overly wired, let us know so we can switch you to diethylpropion, a shorter-acting option. - Use the [employer] It tadeo to track your food by snapping photos of each meal. You can use the free version or upgrade for extra features--this helps estimate intake without manual entry. - Aim for at least 30 grams of protein at breakfast and lunch. Add a protein shake or protein water (e.g., Seq. or Protein 2O) daily. - Choose snacks that include protein or whole foods: yogurt, cottage cheese, meat sticks, string cheese, or IQ Protein Bars. If you have a fruit or carb snack (like a banana), pair it with protein. For carb-rich foods later (like pizza), have protein first. - Continue your current exercise routine of walking, lifting, and running to support metabolism and weight maintenance. - Follow up in clinic on March 23 to check your weight, blood pressure, and pulse. To stay on phentermine, aim to lose at least 5 percent of your current body weight (about 8 pounds) by that visit. Nutrition Reminders: NO NAKED CARBS!! Protein >= Carbs for each meal (if you are going to eat 50g carbs for lunch you should eat 50g protein or more). If you do not eat your carbs for lunch you do not get to save them for dinner- you use them or lose them. Balance your Protein between meals. Unless told otherwise your Minimum protein each day is 30grams per meal but don t be afraid to eat more (try to aim for 1.6g protein per Kilogram of bodyweight). Focus on WHOLE FOODS if you can as your Gut Microbiome will benefit and you will feel more satisfied - the only caviot to this is protein shakes if needed. Water intake should be a minimum of 64oz per day- but more is better (to an extent) unless you have a medical condition that requires you to keep it to a minimum. Nothing is off limits- this is not about restricting yourself- this about learning what your body can have and still respond well to and learning how to balance food and still feel good. Track your food, weigh your food, measure your portion sizes as most people underestimate their food by approximately 40%. You should be tracking your Carbohydrates and Protein daily. It s ok if you had a bad day- write it down and move on! Weigh yourself daily or at least 5 times per week, it will help to keep you accountable. If you are hungry- think about your stress level, your sleep (did you get 7.5-9hrs?) and your protein consumption- if you did not meet your goals then those could be contributing to your hunger. During weight loss phase it is ok to use two protein shakes per day and eating one meal along with it - studies have shown you will lose more weight and keep it off. Take a multivitamin daily Sit less Move more- Exercise including resistance training is very important for your health and if you are not getting routine exercise right now there will come a point when it will become an important piece of this process. Do Not skip meals- it could lead to you not getting enough protein or overeating at your next meal. Intermittent fasting can be a good tool for some but right now try to eat 3 regular meals. Only consume snacks if you are truly hungry. Creating a Mindful Eating Environment: 10 Mindless Eating Solutions If you're looking for easier ways to make healthy changes to your diet and lifestyle, consider these simple mindless eating solutions for staying on-track with nutrition: Serve Salad and Vegetables First. Before bringing out your main dish, serve salad and vegetables first to ensure you're eating enough of this important food group. This strategy will also help you eat less of the rest of your dish which is likely higher in calories, etc. Serve Your Main [facility] on the Stove or Counter. Studies show that we're likely to eat less if our food is placed on the stove or counter rather than right in front of us. Eat on Smaller Plates. Similar to the strategy mentioned above, studies show that you're likely to consume less food if you're eating from a smaller plate. This is likely due to the increase of smaller portion sizes. Turn off Your Television. Watching television as you eat can be highly distracting, and it affects your ability to eat mindfully. For example: you're less likely to notice when you're full, so you might consume excess calories. Keep Mostly Water On-hand. Calories from drinks can add up quickly, especially in fruit juices, alcohol and soft drinks. By minimizing the amounts of those drinks on-hand, you're more likely to consume water when you're thirsty - and water has amazing health benefits! Keep Your Kitchen Organized. An organized refrigerator, counter and cabinet space makes you more likely to find and choose the foods which are healthiest for you. On the contrary, a messy kitchen space may make you more apt to grab the first item you see. Pre-cut Your Fruits and Vegetables. Let's admit it: We're more likely to put off eating produce if we have to go through the burden of cutting it first. Pre-cut fruits and vegetables will eliminate this extra step. Have at Least Six Single Servings of Lean Protein On-hand. This includes lean meats such as turkey and chicken, yogurt, eggs, nuts, beans and legumes. By having plenty of lean protein on-hand, you can better manage your appetite and hunger levels. Keep All Snack Foods in One Inconvenient Cupboard. You're less likely to reach for unhealthy snack foods if they're not all gazing up at you from plain sight! Keep Only a Fruit Bowl on Your Counter. This way, if you're one to grab foods based off of their availability, you'll reach for healthier fruits rather than less healthy snack foods. https://www.obesityaction.org/co mmunity/news/community-news/crea ls-v-iyrfzgx-eating-environment/ Tips for eating away from home: Youtube video: https://www.MONOQI.com/watch?v= Q7oQVIqYYxE Meals away from home make it harder to control ingredients, calories, and portions. This can be particularly challenging for people with Type 2 diabetes (and for those of us trying to avoid getting this condition). The following tips can help you enjoy eating out without abandoning your efforts to eat well. Ask how the food is prepared. Before you order, ask about ingredients and how the menu selections are prepared. Try to choose dishes made with whole grains, healthy oils, vegetables, and lean proteins. Meat that has been broiled, poached, baked, or grilled is a more health-conscious option than fried foods or dishes prepared with heavy sauces. Look for less. Your eyes are the perfect instrument for sizing up portion sizes. Use your estimating techniques to size up the food on your plate. 1 thumb tip = 1 teaspoon of peanut butter, butter, or sugar 1 finger = 1 oz. of cheese 1 fist = 1 cup cereal, pasta, or vegetables 1 handful = 1 oz. of nuts or pretzels 1 palm = 3 oz. of meat, fish, or poultry Plan on eating half your meal and take the rest home to enjoy for lunch or dinner the next day. Order an extra side of veggies. Non-starchy vegetables, such as green beans, broccoli, asparagus, or summer squash, will help you fill up with low-calorie choices. Think ahead. Learn important nutrition information ahead of time. Most fast-food PS DEPT. provide calories, sodium, and fat content for their menu items. Check out www.[employer] for a listing of over 50,000 foods, including many restaurant items. You can also visit company-specific websites Dining Out Tips Dining out is tricky. You have less control over ingredients & portions so even when you think you re ordering healthy, it s likely way more calories & less nutrition than a similar meal you d make at home. Research shows people who do best losing weight & keeping it off don t dine out much only 2.5 times out of 21 meals in a week. So, when you do dine out, make sure to use these PRO TIPS to keep your body happy DINE OUT LIKE A PRO 1. RUIN Your Appetite. About 1.5 hrs before you go out, eat something to cut hunger so you don t get to the restaurant & dive head first into the breadbasket. Try a produce + protein snack such as an apple + almonds or celery + sunflower seed butter. 2. Know BEFORE You Go. Do a few minutes of research before you re swept up in a whirlwind of socializing & drinking. This could be as simple as perusing the online menu on your phone on the ride to the restaurant. 3. Order a [employer] BUNDLE. Pair a healthy superfood with a less-healthy craving. It s the only way to honor both your inner health nut and wild child. At a [facility] joint and really want the pulled pork? Get it - but instead of plopping it on a refined grain bun, ask to put it alongside a salad. 4. Limit FLAVORS. Research shows variety stimulates appetite, meaning tasting little bits of many different foods will trigger you to over eat. So if you find yourself facing a tableful of small plates or buffet-style eating, commit to your absolute favorites rather than sampling every option. 5. Entree + ONE. It s often not just the meal that racks up CRAP calories, it s also the add-on apps + drinks + desserts. Focus on your main and skip these extras, or at least just pick your favorite ONE. Smart: Pick an appetizer salad! When [employer] researchers gave women a 100-calorie appetizer of either a salad or garlic bread, those who had the tiny salad ended up eating 21% less of their main course. HOW DOES CHRONIC STRESS AFFECT EATING PATTERNS? Chronic stress can affect the body s use of calories and nutrients in various ways. It raises the body s metabolic needs and increases the use and excretion of many nutrients. If one does not eat a nutritious diet, a deficiency may occur.Stress also creates a chain reaction of behaviors that can negatively affect eating habits, leading to other health problems down the road. Stress places a greater demand on the body for oxygen, energy, and nutrients. Yet people who experience chronic stress may crave comforting foods such as highly processed snacks or sweets, which can be high in unhealthy fats, sugar, and calories but low in micronutrients. People feeling stress may lack the time or motivation to prepare nutritious, balanced meals, or may skip or forget to eat meals. Stress can disrupt sleep by causing plug stitcher sleep or more frequent awakenings, which leads to fatigue during the day. In order to cope with daytime fatigue, people may use stimulants to increase energy such as with caffeine or high-calorie snack foods. The reverse may also be true that poor-quality sleep is itself a stressor. Studies have found that sleep restriction causes a significant increase in cortisol levels. During acute stress, adrenaline suppresses the appetite.But with chronic stress, elevated levels of cortisol may cause cravings, particularly for foods high in sugar, fat, and calories, which may then lead to weight gain. Cortisol favors the accumulation of fat in the belly area, also called central adiposity, which is associated with insulin resistance and an increased risk of type 2 diabetes, cardiovascular disease, and certain breast cancers.4,6-8 It also lowers levels of the hormone leptin (that promotes satiety) while increasing the hormone ghrelin (that increases appetite). https://cdn1.sph.[employer].edu/wp- content/uploads/sites/ /EmxdgedWicdggEzviy12-48.1.pdf Why People Diet, Lose Weight and Gain It All Back Plus 4 ways to break the cycle + maintain your weight loss You -- and your diet -- have been firing on all cylinders. The weight is melting off, and you re feeling your best. But then there is that seemingly inevitable backslide, with pound after pound creeping back on despite your best efforts. It s the ultimate Catch-22. But before you beat yourself up, u.s. representative and obesity specialist Shahriar Monroe MD, has some welcome news: It s most likely not your fault. Your body is fighting to keep your weight as it was before the dieting, he says. But take heart -- it s possible to win the parker. What weight set point has to do with it Experts think as many as 80 to 95% of dieters gain back the weight they ve worked so hard to lose. Why? (WHY?!?) Dr. Monroe says the culprit is your weight set point : the weight your body is programmed to be. Your weight set point is a combination of several factors, including your: Genetics. Hormones. Behavior. Environment. Weight set point and metabolism play for the same team: Your metabolism velarde energy at a rate that will maintain your weight set point, even if that point is heavier than is healthy. Most of the time, weight gain is gradual, and that can raise your set point gradually, too, notes Dr. Monroe. But certain lifestyle changes can lower it. The perils of yo-yo dieting Beware of the quick-fix, Dr. Monroe warns. A fad diet won t change your set point. It s just restricting calories, he says. Your body is very efficient. You can successfully lose weight for a while, but at some point, your body simply adjusts to need fewer calories to function. Which means weight loss will eventually stop, unless you start eating even less than your diet calls for. (You can see where this is going.) Your body is also a survivor. As soon as calories drop, it starts doing everything in its power to prevent starvation, including: Ups the hunger hormone: Levels of the satiety hormone leptin (which controls how full you feel) decrease. Meanwhile, levels of the hunger hormone ghrelin increase. You feel hungrier, even after eating a normal meal. Makes you think, Oooh that looks good : Eating fewer calories alters how you think about and perceive food. Research shows dieters become hyper-focused on food and that it even smells and tastes better to them. These effects stick around for the long-term. Remember the television show The Biggest Loser? Contestants still felt the effects of their calorie deprivation six years later, making it harder to keep the weight off. Research tells us that yo-yo dieting can negatively affect your metabolism, Dr. Monroe says. It doesn t matter the diet: low-carb, low-fat, ketogenic, whatever. We see rebound weight gain almost every time. How to lose weight without gaining it back To maintain weight loss for good, Dr. Monroe advises focusing on these four areas: Diet. How can you create a healthy, long-term, zlufv-byrs-ex diet? Learn what s healthy -- and what s not. (A laser beam cutter or dietitian can help.) Practice portion control, even when eating healthy foods. Avoid empty calories, but treat yourself once in a while. Don t diet. Instead, focus on forming healthy habits for life. Exercise. Be an equal opportunity all purpose clerk: Do both aerobic exercise (three to five times a week) and resistance training (two to three times nonconsecutively each week). Shoot for at least 25 to 35 minutes on most days. Exercise works best for staving off weight gain (not jumpstarting weight loss), so recognize that binging on exercise can be just as bad as binging on food. Exercise can make people super hungry, while it makes others tired and inactive, which can negate the activity they did, Dr. Monroe explains. But it s also important to remember the cardiovascular benefits of exercise, independent of weight loss. Exercise is always good and important, he says. Stress. Stress not only causes some people to eat more, but it also raises levels of the stress hormone cortisol. If you have more cortisol, you end up with higher insulin and lower blood sugar levels, Dr. Monroe says. (Cue the cravings.) To cope, put down the fork and try meditating or talking to a trusted friend. Sleep. Not getting enough sleep raises cortisol levels, too. It also affects decision-making (read: your ability to stick to healthy habits). Seven to nine hours every night is the magic number you need to help you manage stress. It also helps your body work with you -- and not against you -- when it comes to weight loss. https://health.[facility].o rg/btr-zjpbgz-nlbp-ghzb-aqgepg-b iz-eyqd-lu-all-back/ Why People Diet, Lose Weight and Gain It All Back - [facility] PHENTERMINE -- Please take tablet or capsule as directed. May need to decrease dose or stop if uncontrolled BP or sustained elevated pulse. -- Please monitor your blood pressure (either purchase BP cuff, or go to pharmacy to check your BP at a local pharmacy). Please avoid any stimulants (in the form of caffeinated beverages like coffee, tea, sports drinks) and caution with decongestants. We will require an updated blood pressure and heart rate at follow up visits (this includes virtual visits). -- Please monitor for , if at any point you become please stop the medication. THIS IS A SUMMARY OF OUR DISCUSSION ABOUT THIS MEDICATION. PLEASE READ IT IS IMPORTANT FOR YOUR WEIGHT LOSS PLAN Per updated [place] state rules, initially, a one month supply of phentermine is prescribed. You will need to be seen every month for the first 3 months for follow-up and to assess effectiveness with a total 5% weight loss in that 3 month period. If the phentermine is effective for you, treatment with phentermine can continue with a one month supply of phentermine prescribed at a time with 2 refills. You, the patient, are responsible for making an appointment to see a provider within 12 weeks in order to get a refill of this medication. It is imperative that you get this (and future) phentermine prescriptions within 7 days as pharmacists will NOT refill prescriptions outside this 7 day window per State law. Phentermine can only be prescribed for a 3 month interval at a time. You are aware of the following statements per the [facility] pharmacy board rules. 1. Timely refills are required 2. Every 12 weeks office visits are required. 3. ALL prescriptions need to be filled within 7 days of the written prescription 4. Refills need to be done EVEN IF there is medication still available ? Phentermine (fen ter meen) What are the common names? Adipex-P, Ionamin Why is this medication prescribed? Phentermine was approved by the FDA in 195 for short term weight loss. It works by decreasing appetite. Phentermine is absorbed by the body and travels to the appetite center of the brain. It works by helping you feel less hungry, less driven to eat, more satisfied with less food. I ve heard about fen-phen. Will phentermine affect my heart? The two drug combination fenfluramine/phentermine, usually called fen-phen, became popular in the early as a diet pill. However, it was withdrawn by the FDA in late 1996 after studies which showed that fenfluramine can cause fatal pulmonary hypertension and heart valve problems. Phentermine is not a combination medication and does not contain the compound fenfluramine. What special precautions should I follow? Before having phentermine prescribed, tell your doctor and pharmacist: If you have allergies to any component of phentermine If you are , plan to become , are breast-feeding, or if you become while taking phentermine What are the absolute contraindications? Stroke or Transient Ischemic Attacks Cardiac arrhythmias or Atrial fibrillation Coronary artery disease Seizure Disorder Uncontrolled blood pressure Angina Congestive Heart Failure Valvular Heart Disease or primary pulmonary hypertension Drug interactions. Use of monamine oxidase inhibitors (MAOI s) What are the side effects of phentermine? Immediately discontinue the medicine and seek medical help if you have severe symptoms such as chest pain, shortness of breath, feeling faint, ability to think clearly, eye pain or other visual symptoms: Palpitations (strong or rapid heartbeat) Difficulty sleeping or falling asleep Elevated blood pressure Dry mouth Anxiety or agitation Getting a stimulant/or hyper effect or jitteriness-(Usually goes away after a few days or weeks) Glaucoma In case of emergency/overdose In case of overdose, call your local poison control center at or call local emergency services at [phone]. What other information should I know? Keep all appointments with your doctor and the laboratory. Do not let anyone else take your medication. Phentermine is a controlled substance. It is FDA approved for up to 3 months. Prescriptions may be refilled only a limited number of times. Keep a written list of all of your prescription and nonprescription ([id number]) medicines, in addition to vitamins, minerals, or other dietary supplements. If you are taking the extended-release (long-acting) tablets, do not split, chew, or crush them tablet. There are some tablets that can be crushed and mixed with food Alcohol can make the side effects of phentermine worse How should I monitor while on this medication? Please check your blood pressure (BP) and resting pulse weekly (twice a week in the first 2 weeks). If the BP is over 140/90 (either one), or if the resting pulse is over 96 per minute (count for 10 seconds and multiply by 6), then stop the medication and call your doctor. Continue to improve your dietary and physical activity habits as the combination works best while on this medication. Start out by taking the medication in the morning at least 30 minutes prior to meals. If the effect seems to wear off by dinner time, try taking it later in the morning, but taking too late may result in trouble falling asleep. Be sure to eat regular meals. Less hunger does not make it appropriate to skip meals. Monitor your caffeine intake and use of decongestants as they may worsen the effects of phentermine Make sure to have an eye exam, including the pressure in your eyes (intra-ocular pressure), once a year. What should I do if I forget a dose? Skip the missed dose and continue your regular dosing schedule the next day. Do not take a double dose to make up for a missed one. Sources [facility] Consumer Medication Info: http://www.ncbi.nlm.nih.gov/pubm edhealth/IST6427474/ AMA patient handouts: http://www.amaassn.org/ama1/pub/ upload/mm/433/phrxsurgery.pdf Drugs.com: http://www.drugs.com/pro/phenter mine.html documented in this encounter [facility] 12-05-2024 History of Presen t illness Narrative Images from the original note were not included. Some documentation from previous visit of 09/04/2024 was copied and pasted, documentation has been reviewed and edited as necessary for today's visit. Patient Summary: Linda is a 44 year old Female who presents for follow-up evaluation of obesity/weight management to treat and prevent related co-morbidities. In our previous visits we have discussed lifestyle intervention including a nutrition recommendations and physical activity optimization. Her last office visit was 2 months ago. Assessment/plan from last visit: -repeat Creatinine level- hydration before reviewed - continue topiramate daily- reviewed adding second dose if needed- will contact if feels cravings are increasing - reviewed adding more protein to breakfast- making shake routine - discussed focusing on two meals and then be more lenient on dinner - continue tamiflu for influenza A - Topiramate Rx ordered - will notify patient of results of lab Interval History PT specifies the following items as new or significant updates since the last appointment: - Reports weight gain despite regular high-intensity exercise, including running and lifting. - Describes frustration with weight gain despite significant caloric expenditure through exercise. - Previously tried a medication for weight loss but discontinued due to experiencing mental fog and difficulty coping with stress.- - Reattempted the medication for 2-4 weeks but experienced the same side effects, leading to discontinuation. - Expresses reluctance to take medication long-term for weight management. Weight loss since last vist: + 5 lbs Total weight loss 2 lbs - Last Wt 12/05/24 : 82.6 kg (182 lb) 09/04/24 : 80.2 kg (177 lb) 07/05/24 : 83.5 kg (184 lb) Initial Wt Goal weight: 155 lb 5% weight loss = 175 lbs, 10% weight loss = 166 lbs Anti-obesity medications: Topiramate. Benefit:decreased food noise Adverse effects: none Weight promoting medications: none Previous Diet (initial appointment): Awake - 4:30am B - 2 eggs sometimes with toast, sometimes cereal- raisin bran crunch, protein granola and almond milk after work out - protein shake- ascent (25g, 2-4g carbs) S - nut and cheese snack pack, kind protein bar, cheese stick , pop corn, pretzels L - vegan/sugar free plant based (sakara)- half the time other time eating out- welsh, protein shake if has vegan. S - 1/4 of the time- pretzels or popcorn- whatever is at office- stress?? D - beef or chicken, sometimes fish- sides- green vegetable and rice/beans. eats out 1/2 the time- chipolte - basil- avocado saleem- chicken or shrimp w/ brown rice, panera- salad or francisco cheese soup, S - wine 2-3 x week occasional ice cream 1 x week Fluids: water (40-100oz), coffee, occasional beer, unswt. Van almond milk, wine occasional Bedtime - 9pm Quality of diet: 24hr recall suggests in between diet. Characterization of diet:Structured and unhealthy snacking. Appraisal Coordinator of impaired eating habits:lack of satiety, mindlessness , and stress Eating Disorder no Cravings: salty Dietary changes: B - 2 eggs, sometimes 25g protein , sometimes protein shake, fruit and nuts S - pretzels L - sakara lunch- protein shake- or chicken w/ salad , S - occasionally - meat stick, cottage cheese, ritz cracker and PB D - variable- meat, vegetable- meatloaf, mashed potato S - Fluids - water, coffee Eating 3 meals a day, including breakfast Controlling portions Identify hunger and satiety cues Limiting processed foods Increasing protein Reducing carbohydrates Mindful Eating strategies Current Barriers: reduced physical activity- this month only Exercise: stable Regular exercise: yes run 3 days a week 6miles 3 x week (increased from 3mi) Strength/resistance exercise:yes cross fit 3 days a week Stress: increased- dad sick - but stable now and work Sleep: stableDuration: 7 hours. KIERSTEN NO ; CPAP NO Estimated Creatinine Clearance: 80.2 mL/min (A) (based on SCr of 1.02 mg/dL (H)). PAST MEDICAL HISTORY Diagnosis Date Abnormal glandular Papanicolaou smear of cervix 2003,2009 Abn. Pap smear (cervix) Other int derangement knee Patellar Subluxation--Right Swine Flu May 2009 Current Outpatient Medications Medication Sig Dispense Refill Drospirenone-Ethinyl Estradiol (RITU, 28,) 3-0.02 mg per tablet Take 1 tablet by mouth once daily. 28 tablet 11 Phentermine HCl 37.5 mg tablet Take 1 tablet by mouth daily before breakfast for 90 days. 90 tablet 0 No current facility-administered medications for this visit. 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 Latest Ref Rng & Units 07/25/2024 CMP Sodium 136 - 144 mmol/L 138 Potassium 3.7 - 5.1 mmol/L 4.0 Chloride 98 - 107 mmol/L 102 CO2 22 - 30 mmol/L 23 Glucose 74 - 99 mg/dL 84 BUN 7 - 21 mg/dL 10 Creatinine 0.58 - 0.96 mg/dL 1.02 EGFR >=60 mL/min/1.73m 70 Protein, Total 6.3 - 8.0 g/dL 7.0 Albumin 3.9 - 4.9 g/dL 4.4 Calcium 8.5 - 10.2 mg/dL 9.1 Bilirubin, Total 0.2 - 1.3 mg/dL 0.4 AST 13 - 35 U/L 18 ALT 7 - 38 U/L 14 Alkaline Phosphatase 34 - 123 U/L 42 No results found for: CHOL, HDL, LDL, TG Latest Ref Rng & Units 12/20/2013 CBC WBC 3.70 - 11.00 k/uL 9.21 RBC 3.90 - 5.20 m/uL 3.96 Hemoglobin 11.5 - 15.5 g/dL 12.3 Hematocrit 36.0 - 46.0 % 37.1 MCV 80.0 - 100.0 fL 93.7 MCH 26.0 - 34.0 pG 31.1 MCHC 30.5 - 36.0 g/dL 33.2 RDW-CV 11.5 - 15.0 % 13.8 Platelet Count 150 - 400 k/uL 184 MPV 9.0 - 12.7 fL 11.3 Baso% % 0.2 Abs Neut (ANC) 1.45 - 7.50 k/uL 6.83 Abs Lymph 1.00 - 4.00 k/uL 1.75 Abs [place] 0.00 - 0.86 k/uL 0.55 Abs Eosin 0.00 - 0.45 k/uL 0.06 Abs Baso 0.00 - 0.10 k/uL 0.02 Diff Type Auto Diff No results found for: VITD25 TSH (mIU/L) Date Value 07/25/2024 2.840 ) Hemoglobin A1C (%) Date Value 07/25/2024 4.7 No results found for: INSULIN 10.8 Assessment/Plan: Linda Crowe is a 44 year old with Overweight (Pre-obesity) who presented today for follow up for supervised weight loss to treat and prevent related co-morbidities. 1. Malaise and fatigue (R53.81) - Discussed potential side effects of previous medication contributing to mental fog and decreased coping ability. - Initiated phentermine, starting with half a tablet daily for the first few days to assess tolerance, then increasing to one tablet daily. - this was a combined decision- she did not tolerate topiramate and although BMI not at 30 she has BMI 27 with history GHTN which places her at risk for HTN later in life which can be exacerbated with overweight and obesity. - Advised to take medication first thing in the morning to avoid insomnia. - Discussed potential side effects - Follow-up scheduled in three months to monitor progress and side effects. 2. History of gestational hypertension (Z87.59) - at risk for HTN later in life - shared decision making to trial phentermine 3. Elevated serum creatinine (R79.89) - focus on water intake - recheck next visit 4. Overweight with body mass index (BMI) of 27 to 27.9 in adult (E66.3) - Discussed dietary modifications including increasing protein intake to 30 grams per meal and reducing carbohydrate intake, especially at breakfast. - Recommended use of [employer] tadeo for easy food tracking by taking pictures of meals. - Suggested incorporating protein water and high-protein snacks such as yogurt, cottage cheese, and protein bars. - Advised to maintain regular exercise routine but consider incorporating low-intensity activities to reduce stress on the body. - Follow-up appointment scheduled for March 07 at 9:20 AM to assess weight loss progress and adjust treatment as necessary. - An overall goal of 150-200 minutes per week of exercise has been effective in weight loss and maintenance. Prescription instructions reviewed with patient as applicable. Potential red flag symptoms discussed with the patient. Reviewed appropriate action plan to take if red flag symptoms occur. Patient agreeable to treatment plan. Phentermine. Risk/benefits discussed at length including potential side effects of increased anxiety, insomnia, increased heart rate, and increased blood pressure. I have asked the patient to monitor blood pressure and avoid any stimulants (in the form of caffeinated beverages like coffee, tea, sports drinks) initially. Patient denies history of arrhythmias, coronary artery disease (atherosclerosis), heart failure, pulmonary hypertension, stroke, valvular heart disease (prolapse, regurgitation, stenosis). The patient is currently enrolled in a diet and exercise program The patient has no known history of contraindications The patient is free from drug or ETHO abuse The patient is not or and is aware not to become while using this medication OARS was reviewed. PDMP website checked and validated. All prescriptions have been APPROPRIATELY filled. No suspicious activity was identified. Follow up in 3 months I spent a total of 40 minutes on the date of the service which included preparing to see the patient, [id number] patient care, completing clinical documentation, obtaining and/or reviewing separately obtained history, performing a medically appropriate examination, counseling and educating the patient/family/caregiver, and ordering medications, tests, or procedures. Myra Peterson MD, FACOG, DONTRELL documented in this encounter [facility] 12-05-2024 Note HNO ID: [id number] Author: MYRA MORA MD Service: ? Author Type: Physician Type: Progress Notes Filed: 12/05/2024 17:02 Note Text: Some documentation from previous visit of 09/04/2024 was copied and pasted, documentation has been reviewed and edited as necessary for today's visit. Patient Summary: Linda is a 44 year old Female who presents for follow-up evaluation of obesity/weight management to treat and prevent related co-morbidities. In our previous visits we have discussed lifestyle intervention including a nutrition recommendations and physical activity optimization. Her last office visit was 2 months ago. Assessment/plan from last visit: -repeat Creatinine level- hydration before reviewed - continue topiramate daily- reviewed adding second dose if needed- will contact if feels cravings are increasing - reviewed adding more protein to breakfast- making shake routine - discussed focusing on two meals and then be more lenient on dinner - continue tamiflu for influenza A - Topiramate Rx ordered - will notify patient of results of lab Interval History PT specifies the following items as new or significant updates since the last appointment: - Reports weight gain despite regular high-intensity exercise, including running and lifting. - Describes frustration with weight gain despite significant caloric expenditure through exercise. - Previously tried a medication for weight loss but discontinued due to experiencing mental fog and difficulty coping with stress.- - Reattempted the medication for 2-4 weeks but experienced the same side effects, leading to discontinuation. - Expresses reluctance to take medication long-term for weight management. Weight loss since last vist: + 5 lbs Total weight loss 2 lbs - Last Wt 12/05/24 : 82.6 kg (182 lb) 09/04/24 : 80.2 kg (177 lb) 07/05/24 : 83.5 kg (184 lb) Initial Wt Goal weight: 155 lb 5% weight loss = 175 lbs, 10% weight loss = 166 lbs Anti-obesity medications: Topiramate. Benefit:decreased food noise Adverse effects: none Weight promoting medications: none Previous Diet (initial appointment): Awake - 4:30am B - 2 eggs sometimes with toast, sometimes cereal- raisin bran crunch, protein granola and almond milk after work out - protein shake- ascent (25g, 2-4g carbs) S - nut and cheese snack pack, kind protein bar, cheese stick , pop corn, pretzels L - vegan/sugar free plant based (sakara)- half the time other time eating out- welsh, protein shake if has vegan. S - 1/4 of the time- pretzels or popcorn- whatever is at office- stress?? D - beef or chicken, sometimes fish- sides- green vegetable and rice/beans. eats out 1/2 the time- chipolte - basil- avocado saleem- chicken or shrimp w/ brown rice, panera- salad or francisco cheese soup, S - wine 2-3 x week occasional ice cream 1 x week Fluids: water (40-100oz), coffee, occasional beer, unswt. Van almond milk, wine occasional Bedtime - 9pm Quality of diet: 24hr recall suggests in between diet. Characterization of diet:Structured and unhealthy snacking. Appraisal Coordinator of impaired eating habits:lack of satiety, mindlessness , and stress Eating Disorder no Cravings: salty Dietary changes: B - 2 eggs, sometimes 25g protein , sometimes protein shake, fruit and nuts S - pretzels L - sakara lunch- protein shake- or chicken w/ salad , S - occasionally - meat stick, cottage cheese, ritz cracker and PB D - variable- meat, vegetable- meatloaf, mashed potato S - Fluids - water, coffee Eating 3 meals a day, including breakfast Controlling portions Identify hunger and satiety cues Limiting processed foods Increasing protein Reducing carbohydrates Mindful Eating strategies Current Barriers: reduced physical activity- this month only Exercise: stable Regular exercise: yes run 3 days a week 6miles 3 x week (increased from 3mi) Strength/resistance exercise:yes cross fit 3 days a week Stress: increased- dad sick - but stable now and work Sleep: stableDuration: 7 hours. KIERSTEN NO ; CPAP NO Estimated Creatinine Clearance: 80.2 mL/min (A) (based on SCr of 1.02 mg/dL (H)). PAST MEDICAL HISTORY Diagnosis Date Abnormal glandular Papanicolaou smear of cervix 2003,2009 Abn. Pap smear (cervix) Other int derangement knee Patellar Subluxation--Right Swine Flu May 2009 Current Outpatient Medications Medication Sig Dispense Refill Drospirenone-Ethinyl Estradiol (RITU, 28,) 3-0.02 mg per tablet Take 1 tablet by mouth once daily. 28 tablet 11 Phentermine HCl 37.5 mg tablet Take 1 tablet by mouth daily before breakfast for 90 days. 90 tablet 0 No current facility-administered medications for this visit. ROS Constitutional: (+) fatigue Neurological: (+) cognitive fog Psychiatric: (+) anxiety, (-) depressed mood, (-) insomnia ROS/Fam Hx pertaining to AOMs: GEN: Fatigue:yes CV: h/o palpitations/cardiac arrhythmia, Chest pain: no HTN: no (more content not included)... [facility] 09-04-2024 Instructions Myra Mora MD - 09/04/2024 12:44 PM EST Creating a Mindful Eating Environment: 10 Mindless Eating Solutions If you're looking for easier ways to make healthy changes to your diet and lifestyle, consider these simple mindless eating solutions for staying on-track with nutrition: Serve Salad and Vegetables First. Before bringing out your main dish, serve salad and vegetables first to ensure you're eating enough of this important food group. This strategy will also help you eat less of the rest of your dish which is likely higher in calories, etc. Serve Your Main [facility] on the Stove or Counter. Studies show that we're likely to eat less if our food is placed on the stove or counter rather than right in front of us. Eat on Smaller Plates. Similar to the strategy mentioned above, studies show that you're likely to consume less food if you're eating from a smaller plate. This is likely due to the increase of smaller portion sizes. Turn off Your Television. Watching television as you eat can be highly distracting, and it affects your ability to eat mindfully. For example: you're less likely to notice when you're full, so you might consume excess calories. Keep Mostly Water On-hand. Calories from drinks can add up quickly, especially in fruit juices, alcohol and soft drinks. By minimizing the amounts of those drinks on-hand, you're more likely to consume water when you're thirsty - and water has amazing health benefits! Keep Your Kitchen Organized. An organized refrigerator, counter and cabinet space makes you more likely to find and choose the foods which are healthiest for you. On the contrary, a messy kitchen space may make you more apt to grab the first item you see. Pre-cut Your Fruits and Vegetables. Let's admit it: We're more likely to put off eating produce if we have to go through the burden of cutting it first. Pre-cut fruits and vegetables will eliminate this extra step. Have at Least Six Single Servings of Lean Protein On-hand. This includes lean meats such as turkey and chicken, yogurt, eggs, nuts, beans and legumes. By having plenty of lean protein on-hand, you can better manage your appetite and hunger levels. Keep All Snack Foods in One Inconvenient Cupboard. You're less likely to reach for unhealthy snack foods if they're not all gazing up at you from plain sight! Keep Only a Fruit Bowl on Your Counter. This way, if you're one to grab foods based off of their availability, you'll reach for healthier fruits rather than less healthy snack foods. https://www.obesityaction.org/co mmunity/news/community-news/crea wp-k-emzogrf-eating-environment/ A diet that leaves you feeling full and satisfied over the course of the day leaves less room for wondering about whether you should have a snack when you re bored. 1. Eat regularly throughout the day Try to spread out your calorie intake throughout a regular meal and snack schedule. This may keep you more full and less hungry than eating the same number of calories on a less regular meal schedule (5Trusted Source). If you re feeling content with your food choices for the day, you might be less likely to reach for a snack when you re bored. What s more, knowing that you plan to eat a meal or snack in the next few hours could be motivation to hold back from eating until then. The same meal schedule doesn t work for everyone. Some people like to have three meals and a few snacks each day, while others may prefer to have more or less. Finding a routine that works for you and sticking with it seems to matter more than exactly how many meals and snacks you have each day. 2. Don t restrict your favorite foods If you tend to crave or reach for certain foods when you re bored, you might be tempted to completely stop eating those foods to remove the temptation. However, for some people, research shows this approach might be counterproductive. If you find you re more susceptible to food cravings, depriving yourself of certain foods might make you crave them more in the short term (6Trusted Source, 7Trusted Source, 8Trusted Source). Rather than eliminating the foods you crave, try eating them regularly but in moderation. This might help reduce your urge to snack on those foods when you re bored. 3. Have nutritious, filling snacks When you ve just had a filling meal or snack, you may be less likely to associate feeling bored with wanting to eat. Certain foods are more filling than others. Some particularly filling foods include: Protein: eggs, fish, meat, yogurt, cottage cheese Fiber-rich foods: oatmeal, quinoa, whole grains, legumes, popcorn Foods high in water: fruits, vegetables, soups 4. Eat from a plate Sometimes it s hard to distinguish between hunger and boredom. Ocassationally, there may still be times when you reach for a snack when you re bored. To avoid overeating and letting boredom get the best of your appetite in those moments, portion your snacks onto a plate or serving dish rather than eating them directly from the bag or container. Visual cues, such as the plate size, container size, and even the type of dish you eat from, can all influence how much you eat (17Trusted Source, 18Trusted Source, 19Trusted Source). SUMMARY Eating a healthy diet comprising regular meals, nutritious and filling snacks, and appropriate portion sizes may be more satisfying and thus make it less tempting to eat when you re feeling bored. 5-8. Tune in to your emotions Researchers know that your emotions and mood often influence when, what, and how much you eat. Experts have also suggested that how well you regulate your emotions can influence boredom eating. Poor emotional regulation could potentially lead to an increase in eating when you re feeling bored (22Trusted Source, 23Trusted Source). Practicing self-awareness and developing a better understanding of how your own emotions are influencing your appetite is a great starting place to combat boredom eating. 5. Eat mindfully To be mindful means to be conscious, aware, and focused on the present moment. To eat mindfully means to be aware of your mental and physical states related to food. Some studies have found mindfulness is particularly helpful at helping people reduce eating in response to emotions like boredom (24Trusted Source, 25Trusted Source, 26Trusted Source). Mindful eating is useful in differentiating between boredom and hunger, as it emphasizes paying close attention to your cravings and hunger and fullness cues. 6. Know your hunger signs Being perceptive of your specific hunger and fullness signs may be one of the most effective ways to determine whether you re hungry or bored. When your body is physically hungry and in need of calories for energy, you may notice signs like your stomach growling, a headache, and feelings of weakness or fatigue. On the other hand, when you re experiencing boredom hunger -- or another type of emotional hunger -- you may crave a certain food without any of the traditional signs of physical hunger. 7. Embrace being bored Throughout 2019 and into 2020, people reported feeling bored at higher rates than usual due to the COVID-19 pandemic (27Trusted Source). In certain situations, being bored too often may have detrimental health effects, such as increased rates of depression and altered eating habits (1Trusted Source, 28Trusted Source). Still, a little boredom is OK and normal to experience from time to time. What s more, research has linked boredom to certain benefits. For example, it may help motivate creativity (29Trusted Source, 30Trusted Source). Trying to prevent boredom or override the feeling by eating and finding other distractions doesn t always work. You might find meaning in the downtime by trying to embrace boredom instead. 8. Take it easy on yourself Remember, it s normal to reach for a snack out of boredom on occasion. When it happens, don t take it as a failure. Rather, use it as a learning experience and opportunity to treat yourself with kindness and compassion. SUMMARY Your mood and emotions play a significant role in psychologically induced hunger like boredom eating. Learning to be aware of your emotions, hunger triggers, and fullness cues can help prevent you from eating because you re bored. 9-11. Understand your environment Much of what you eat is influenced by your environment, and the same goes for when and how much you eat. Here are a few specific ways you can tailor your environment to discourage yourself from boredom eating when the urge strikes. 9. Know your triggers Especially when it comes to psychological types of hunger like boredom eating, external factors often trigger the urge to eat. Identifying the triggers in your life that tend to cause the urge to eat when you re bored is keys to breaking the habit. Some common triggers to be aware of are stress, food availability, and pictures of food. Make notes in a food journal about what you re doing and your environment when you feel the urge to eat. This might help identify -- and stop -- boredom eating patterns. 10. Avoid the urge to eat in front of a screen Eating in front of a screen while you re bored can influence you to overeat when you aren t even hungry. Many people turn to screen-based activities like watching TV or scrolling on their phone when they re feeling bored. Some studies have found that people tend to eat more than they otherwise would when they re distracted or in front of a screen, such as a TV or computer (35Trusted Source, 36Trusted Source, 37Trusted Source). Break associations you might have between eating and screen time by making a point of eating meals at a table -- not in front of the TV -- and putting your phone away while you re dining. Consider replacing mindless eating during screen time with another activity, such as knitting, doodling, or playing with a toy or piece of jewelry, to keep your hands busy while you watch TV. 11. Change your scenery Sometimes all it takes to get your mind off food when you re feeling bored is a little change of scenery. When you re bored and fighting the urge to snack, standing up and moving to a new location -- even if it s just from one room to another -- may be enough to distract your mind from food until the boredom passes. SUMMARY External factors often trigger urges to eat when you re not physically hungry. Identifying the factors in your environment that trigger boredom eating is keys to breaking those habits. 12-13. Mix things up To be bored means that you re feeling uninterested in your current activity. The feeling often occurs when the day has been monotonous or repetitive. The same goes for boredom eating. You may eat simply as a way to escape the regular routines of the day (38Trusted Source, 39Trusted Source). Adding variety to your day keeps things feeling fresh and exciting, and it might fend off boredom eating. 12. Take a walk When you re feeling bored, taking a walk not only provides a distraction from any urges to snack but also physically removes you from food temptations. Sometimes a quick [id number] walk is all it takes to recenter yourself and forget about the urge to snack out of boredom. If you re not able to take a walk, you might find it helpful to take a few minutes to stretch or do breathing exercises. 13. Make new habits One of the upsides of being bored is that it can drive you to try new things. Next time you feel bored, take a few minutes to think about how you d really like to be spending that time. Is there a new hobby you d like to try or an old book that you never got around to reading? Try to look at boredom as a space for meaningful stimulation in your day. 13 Ways to Stop Eating When You're Bored (SeeMore Interactiveline.SpeedDate) Tips to reduce food cravings Aim to eat nutritionally balanced meals. Foods with protein and fiber provide longer-lasting satisfaction. Avoid long stretches of not eating. Eat a nutritious meal or snack every 3-4 hours. Waiting too long to eat because you are busy or distracted may only lead to stronger hunger when you do eat and the risk of overeating. Also keep in mind that if your bedtime is more than 4 hours after you ve finished dinner, you may feel hungry again; to avoid snacking late night which can disrupt sleep, try to go to bed earlier when possible. Avoid choosing hyperpalatable or ultraprocessed snacks that are high in sodium, fat, sugar, and calories but low in nutrition. These are the types of foods that trigger the brain reward pathways and cause cravings to eat more. Choose satisfying, less-processed snacks like fresh fruit, a handful of nuts, or a cup of low-sugar yogurt. Limit environmental cues to eat, such as scrolling through social media posts about food or [employer]Dust (online videos of people eating enormous quantities of decadent meals) and watching television cooking shows. In an office setting, detour away from the candy bowls and platters of bagels and treats that may be sitting in the break room. Food cravings are sometimes learned behaviors that are associated with an event or environment, such as craving potato chips while watching late-night television. If so, research suggests that it is possible to unlearn the behavior and reduce the craving by avoiding the food completely for an extended time. [25] In addition, you can try changing the association by changing your evening routine with a different activity like listening to an audiobook or podcast. Practice mindfulness when sensing a growing craving. Ask yourself if you are stressed, bored, angry? If so, try instead doing breathing exercises, talking a brisk 5-10 minute walk, listening to a meditation tadeo or podcast, or playing a few favorite songs. If you can distract yourself from eating for about 5-7 minutes, the craving may subside. Learn more about mindful eating. Try other dopamine-inducing activities such as taking a walk in nature on a ericka day, dancing, or watching a funny video and laughing aloud! Why You May Want to Weigh Yourself Every Day At any given moment, an estimated 24% of men and 38% of women in the [place] are trying to lose weight (1Trusted Source). Meanwhile, obesity has skyrocketed and working-age adults are gaining about 2.2 pounds (1 kg) annually, on average (2Trusted Source, 3Trusted Source). Recent studies have shown that daily self-weighing may be a powerful tool for both losing and maintaining weight. However, many people believe that weighing yourself daily contributes to bad mental health and disordered eating habits. So what should you believe? This article sets the record straight on whether you should start weighing yourself daily. Weighing Yourself Daily Helps You Lose More Weight The simple act of self-weighing has received lots of attention and stirred up controversy for years. Some people have even thrown away their scale, claiming that it s a highly misleading weight loss tool that results in bad self-esteem and disordered eating habits (4, 5). However, recent studies generally agree that daily weighing is associated with greater weight loss and less weight regain than less-frequent self-weighing (6Trusted Source, 7, 8, 9). One study showed that participants who weighed themselves daily for six months lost 13 more pounds (6 kg), on average, than those who weighed themselves less frequently (10. What s more, those who weigh themselves daily tend to adopt more favorable weight control behaviors, exercise better restraint toward food and eat impulsively less often (10, 11). Interestingly, adopting healthy weight-related behaviors has been shown to be especially important when people emerge from adolescence into adulthood (12). One study in participants aged 18-25 showed that daily self-weighing resulted in better weight loss than less-frequent weighing (13). The researchers concluded that daily self-weighing is a particularly valuable self-regulation tool for this age group. Furthermore, another study showed that people who weighed themselves every day ate 347 fewer calories per day than those who did not. After six months, the group that weighed themselves daily ended up losing a whopping 10 times more weight than the control group (14). BOTTOM LINE: Daily self-weighing may cause people to lose more weight and gain less of it back, compared to less-frequent weighing. Daily Weighing May Motivate You and Improve Self-Control Being aware of your weight is a keys factor in successful weight loss. Awareness of your weight trend -- that is, whether your weight is going up or down -- is also important. In fact, weighing yourself more often is linked to weight control, while weighing yourself less often has been associated with weight gain. One study found that participants who weighed themselves less often were more likely to report increased calorie intake and decreased restraint toward food (15). Self-weighing promotes self-regulation and awareness of your weight trend and weight-related behaviors. That s why it generally results in greater weight loss (14). Although the exact number on the scale may be unimportant, monitoring weight loss progress motivates you to keep going and generally improves weight-related behavior and self-control. Also, by being more aware of your weight, you can quickly react to lapses in your progress and make necessary adjustments to maintain your goal. Since most people are able to sustain a habit of daily self-weighing, the adherence and acceptability of it is generally quite high (16Trusted Source, 17, 18, 19, 20). It s a minor addition to your daily routine that may help you reap major benefits for your weight. BOTTOM LINE: Daily self-weighing helps you maintain awareness of your weight. Monitoring weight loss progress further motivates you to keep going and improves your self-control. Daily Weighing Helps You Keep the Weight Off Frequent self-weighing has been shown to be a great way to prevent weight gain in the long-term (15, 2, 22, 23). One study investigated how much self-weighing frequency predicted weight jacket changer two years in working adults (24Trusted Source). It found that there was a significant link between self-weighing frequency and weight change. In normal-weight individuals, daily weighing resulted in a slight weight loss, while those who weighed themselves monthly gained 4.4 pounds (2 kg), on average. However, the largest difference was in overweight individuals. Those who weighed themselves daily lost 10 pounds (4.4 kg), while those who weighed themselves monthly gained 2.2 pounds (1 kg), on average (24). Another study came to a similar conclusion, showing that self-weighing was a significant predictor of body weight over time. Participants lost an extra pound (0.45 kg) of body weight for every 11 days they self-weighed (25). The main reason why this is so effective is that consistent self-weighing allows you to catch weight gain before it escalates and make the necessary changes to prevent more weight gain (15). BOTTOM LINE: Daily weighing may help prevent long-term weight gain, especially in overweight people. Weighing Yourself Daily Is Not as Bad as People Think Not so long ago, frequent self-weighing was thought to be damaging to your mental health. This notion still exists today. Self-weighing is claimed to have negative effects on your mood by continuously reinforcing that your body size is not ideal or appropriate, resulting in an increased risk of developing an eating disorder (4Trusted Source, 5Trusted Source). Although this may be true in a small group of people, most studies have repeatedly come to a different conclusion (9Trusted Source, 26Trusted Source, 27Trusted Source). The available research suggests there is very little evidence that frequent self-weighing is a cause of negative mood or body dissatisfaction, especially as part of a weight loss program (8Trusted Source, 12Trusted Source, 14Trusted Source, 26Trusted Source, 28Trusted Source, 29Trusted Source). In fact, studies indicate that frequent self-weighing may increase body satisfaction, rather than decrease it (9Trusted Source). That said, there is a group of people who may develop a negative body image, low self-esteem or undesirable eating behaviors as a result of daily self-weighing (30Trusted Source). If you find that daily self-weighing causes you to have bad feelings about yourself or your eating behaviors, you should find other methods to measure your progress. BOTTOM LINE: Most studies do not link frequent self-weighing to negative mood or body dissatisfaction. Some even associate them with higher body satisfaction. How to Weigh Yourself for Best Results The best time to weigh yourself is right after you wake up, after going to the bathroom and before you eat or drink. Your weight tends to fluctuate less in the morning than later in the day when you ve had plenty to eat and drink. That is also why people weigh the least in the morning. Also, it is best if you always weigh yourself in similar clothing each day. However, you need to keep in mind that your weight may fluctuate from day to day and can be affected by many factors, including: What you ate or drank the previous day Bloating or water retention Menstrual cycle Whether you ve had bowel movements recently Therefore, it is important to assess the trend of your weight over a longer period of time, instead of drawing conclusions from each and every weighing. A basic scale will do just fine. However, many scales also have the ability to measure your body mass index (BMI), body fat percentage and muscle mass, which may help you get a better picture of your progress. There are also several apps available for your phone or computer that allow you to easily enter your daily weight and see the trend of your weight change. Happy Scale for iPhone and Tiffanie for Android are two such apps. BOTTOM LINE: It is best to weigh yourself right after you wake up, after going to the bathroom and before you eat or drink anything. Other Ways to Track Your Progress Although self-weighing may be a valuable tool, it has some limitations. If you re exercising and gaining muscle, the scale may not show your progress and instead simply show that you have gained weight. While losing weight can indicate progress, a scale does not differentiate between healthy weight (muscle) and unhealthy weight (fat). Therefore, it may be good to add other ways of tracking your progress to your regimen. Here are some examples: Measure circumference: Muscle has much less volume than fat, so your circumference may be decreasing even if your weight stays the same or goes up. Measure body fat percentage: By measuring your body fat percentage, you can observe changes in fat mass, regardless of your weight. Take pictures of yourself regularly: You can observe any changes in your physique by comparing photos of yourself in similar clothing. Note how your clothes feel: Any changes in your weight will probably affect how your clothes fit. Feeling them become looser or tighter is one of the best indicators of changes in your body. BOTTOM LINE: Other ways to track your progress include measuring your circumference, measuring your body fat percentage and taking pictures of yourself. Take Home Message Weighing yourself every day can help increase your awareness of your weight and weight-related behaviors. It may help you lose more weight and prevent you from gaining that weight back in the long-term. Daily self-weighing may just be that extra motivation you need to achieve your weight goals. https://www.SeeMore Interactiveline.com/nutri tion/daily-weighing HOW DOES CHRONIC STRESS AFFECT EATING PATTERNS? Chronic stress can affect the body s use of calories and nutrients in various ways. It raises the body s metabolic needs and increases the use and excretion of many nutrients. If one does not eat a nutritious diet, a deficiency may occur.Stress also creates a chain reaction of behaviors that can negatively affect eating habits, leading to other health problems down the road. Stress places a greater demand on the body for oxygen, energy, and nutrients. Yet people who experience chronic stress may crave comforting foods such as highly processed snacks or sweets, which can be high in unhealthy fats, sugar, and calories but low in micronutrients. People feeling stress may lack the time or motivation to prepare nutritious, balanced meals, or may skip or forget to eat meals. Stress can disrupt sleep by causing plug stitcher sleep or more frequent awakenings, which leads to fatigue during the day. In order to cope with daytime fatigue, people may use stimulants to increase energy such as with caffeine or high-calorie snack foods. The reverse may also be true that poor-quality sleep is itself a stressor. Studies have found that sleep restriction causes a significant increase in cortisol levels. During acute stress, adrenaline suppresses the appetite.But with chronic stress, elevated levels of cortisol may cause cravings, particularly for foods high in sugar, fat, and calories, which may then lead to weight gain. Cortisol favors the accumulation of fat in the belly area, also called central adiposity, which is associated with insulin resistance and an increased risk of type 2 diabetes, cardiovascular disease, and certain breast cancers.4,6-8 It also lowers levels of the hormone leptin (that promotes satiety) while increasing the hormone ghrelin (that increases appetite). https://cdn1.sph.[employer].edu/wp- content/uploads/sites/ /[email or web address].pdf Sleep Hygiene Tips Set a sleep schedule and stick to it. Try to go to bed at night and awaken in the morning around the same times, even on weekends. This helps to regulate the body s sleep cycles and circadian rhythms. Try to exercise at some point in the day but avoid vigorous activity (running, fast dancing, high-intensity interval training) one hour before bedtime. Regular exercise of adequate intensity can promote muscle relaxation and deeper sleep later on. If you re in the habit of napping during the day, aim for a 10-20 minute power nap to achieve the goals of reduced fatigue and increased alertness. It s best to take naps in the early afternoon to avoid interference with nighttime sleep. Try to avoid large meals, heavy snacking,or alcohol 2-3 hours before bed. If you are sensitive to caffeine, try to avoid drinking caffeinated beverages 4-6 hours before bedtime. Stop using electronic devices an hour before bed, especially those emitting blue light such as smartphones, tablets, and televisions. Schedule before-bed activities to signal that you are winding down, such as changing into pajamas and brushing teeth. Create a quiet, dark, relaxing environment in your bedroom. Dim the lights and turn off your cell phone s sound and vibration modes if possible. Ensure a comfortable temperature, as feeling too hot or cold can disrupt sleep. Create calming bedtime rituals such as practicing deep breathing exercises, doing light yoga stretches, or listening to soothing relaxing music. If you awaken and can t return to sleep, don t stay in bed. Get up and do quiet relaxing activities, such as reading, until you feel tired enough to fall back asleep. Disrupted Sleep Linked to Weight Gain - YouTube How To Improve Your Sleep To Impact Your Weight Loss: [email or web address]/ep42 / Weight Loss and Sleep Updated April 11, 2020 Written by Bradly Saenz Medically Reviewed by Barbara Da Silva In This Article The Connection Between Sleep and Weight Sleep and Obesity Sleep During Weight Loss Maintaining a Healthy Relationship With Your Body Losing weight is challenging, and keeping weight off can be just as difficult. Although the medical community is still untangling the complicated relationship between sleep and body weight, several potential links have emerged that highlight the potential weight loss benefits of getting a good night s rest and the negative health impacts of sleep deprivation. The Connection Between Sleep and Weight Over the past several decades, the amount of time that Americans spend sleeping has steadily decreased1, as has the self-reported quality of that sleep. For much of the same time period, the average body mass index (BMI) of Americans increased2, reflecting a trend toward higher body weights and elevated rates of obesity. In response to these trends, many researchers began to hypothesize about potential connections between weight and sleep. Numerous studies have suggested that restricted sleep and poor sleep quality may lead to metabolic disorders, weight gain, and an increased risk of obesity and other chronic health conditions. While there is continuing debate within the medical community about the exact nature of this relationship, the existing research points to a positive correlation between good sleep and healthy body weight. There remains much to be discovered about the intricate details of how sleep and weight are connected. Several hypotheses offer paths for additional research with the hope that increasing our understanding of the relationship between weight and sleep will lead to reduced obesity and better weight-loss methods. Can Lack of Sleep Increase Appetite? One common hypothesis about the connection between weight and sleep involves how sleep affects appetite. While we often think of appetite as simply a matter of stomach grumbling, it s actually controlled by neurotransmitters, which are chemical messengers that allow neurons (nerve cells) to communicate with one another. The neurotransmitters ghrelin and leptin are thought to be central to appetite. Ghrelin promotes hunger, and leptin contributes to feeling full. The body naturally increases and decreases the levels of these neurotransmitters throughout the day, signaling the need to consume calories3. A lack of sleep may affect the body s regulation of these neurotransmitters. In one study, men who got 4 hours of sleep had increased ghrelin and decreased leptin compared to those who got 10 hours of sleep. This dysregulation of ghrelin and leptin may lead to increased appetite and diminished feelings of fullness in people who are sleep deprived. In addition, several studies have also indicated that sleep deprivation affects food preferences. Sleep-deprived individuals tend to choose foods that are high in calories and carbohydrates4. Other hypotheses regarding the connection between sleep and increased appetite involve the body s endocannabinoid system5 and orexin6, a neurotransmitter targeted by some sleep aids. Many researchers believe that the connection between sleep and dysregulation of neurotransmitters is complicated and additional studies are needed to further understand the neurobiological relationship. Does Sleep Increase Metabolism? Metabolism7 is a chemical process in which the body converts what we eat and drink into energy needed to survive. All of our collective activities, from breathing to exercising and everything in between, is part of metabolism. While activities like exercise can temporarily increase metabolism, sleep cannot8. Metabolism actually slows about 15% during sleep, reaching its lowest level in the morning 9. In fact, many studies have shown that sleep deprivation (whether due to self-induction, insomnia, untreated sleep apnea, or other sleep disorders) commonly leads to metabolic [id number]. Poor sleep is associated with increased oxidative stress, glucose (blood sugar) intolerance (a precursor to diabetes), and insulin resistance. Extra time spent awake may increase the opportunities to eat11, and sleeping less may disrupt circadian rhythms, leading to weight gain12. How is Sleep Related to Physical Activity? Losing sleep can result in having less energy for exercise and physical activity. Feeling tired can also make sports and exercising less safe, especially activities like weightlifting and or those requiring balance. While researchers are still working to understand this [id number], it s well known that exercise is essential to maintaining weight loss and overall health. Getting regular exercise can improve sleep quality, especially if that exercise involves natural light. While even taking a short walk during the day may help improve sleep, more activity can have a more dramatic impact. Engaging in at least 150 minutes of moderate-intensity or 75 minutes of high-intensity exercise per week can improve daytime concentration and decrease daytime [id number]. Sleep and Obesity In children and adolescents, the link between not getting enough sleep and an increased risk of obesity is well-established, although the reason for this link is still being debated. Insufficient sleep in children can lead to metabolic irregularities as discussed earlier, skipping breakfast in the mornings, and increased intake of sweet, salty, fatty, and starchy foods15. In adults, the research is less clear. While a large analysis of past studies suggests that people getting less than 6 hours of sleep at night are more likely to be diagnosed as obese16, it s challenging for these studies to determine cause and effect. Obesity itself can increase the risk of developing conditions that interfere with sleep, like sleep apnea and depression. It s not clear if getting less sleep is the cause of obesity in these studies, if obesity is causing the participants to get less sleep, or perhaps a mix of both. Even though more studies are needed to understand this connection, experts encourage improving sleep quality when treating obesity in adults. Sleep During Weight Loss Getting adequate, quality sleep is an important part of a healthy weight loss plan. Most importantly, research has shown that losing sleep while dieting can reduce the amount of weight lost17 and encourage upbqqimfjf85. Tips for Quality Sleep During Weight Loss There are many ways to improve sleep. Here are a few research-based tips for sleeping better when you re trying to lose weight: Keep a regular sleep schedule: Big swings in your sleep schedule or trying to catch up on sleep after a week of late nights can cause changes in metabolism and reduce insulin [id number], making it easier for blood sugar to be elevated. Sleep in a dark room: Exposure to artificial light while sleeping, such as a TV or bedside lamp, is associated with an increased risk of weight gain and jsswnuh10. Don t eat right before bed: Eating late may reduce the success of weight loss [id number] Reduce Stress: Chronic stress may lead to poor sleep and weight gain in several ways, including eating to cope with negative kutaoquy26 Be an Early Bird: People with late bedtimes may consume more calories and be at a higher risk for weight gain23. Early birds may be more likely to maintain weight loss when compared to night owls24. Maintaining a Healthy Relationship With Your Body Deciding if you should attempt to change your body weight is a personal decision best made with the guidance of your doctor. Don t take all the health and weight loss information you read [id number] at face value. Weight loss isn t appropriate for everyone and doesn t always mean better health. Remember that health is a lifelong journey that includes not only healthy habits but also having a healthy relationship with your body. If you re considering weight loss, the National Institutes of Health offers a helpful resource for choosing a safe weight loss [id number] Source National [place] of Diabetes and Digestive and Kidney DiseasesNIDDK research creates knowledge about and treatments for diseases that are among the most chronic, costly, and consequential for patients, their families, and the Nation. niddk.nih.gov . https://www.sleepfoundation.org/ physical-health/agnhxe-ltrx-rxu- sleep Educational Podcasts: The Dr. Weinstein Show- Real Conversations about Health and Weight *February 13, 2024, how to determine your weight Gain Pattern to pick a weight loss medication or lifestyle plan *December 26, 2023, NEAT, Non- exercise activity thermogenesis - yes taking the stairs is good for you! *December 12, 2023, What to do when your weight loss plateaus * March 21, 2023 what you need to know about Carbohydrates and Weight *February 28, 2023 Protein why we need it and how to eat more Protein *February 07, 2023 Menopause and Weight Gain- All the Details with Dr. Carmita Covarrubias *January 17, 2023 The Science Behind Ultra Processed Food and Weight Gain *November 01, 2022 Effects of sleep and Stress of Weight and Health with Dr. Malu Casas-Withers, DO * October 25, 2022 Recognizing and Resolving Emotional Eating with Dr. Coyne Obesity: A Disease *October 25, 2022 Episode 80 Clinical conversations: The Role of Physical Activity in Weight Management * February 04, 2023 Episode 84 Clinical Conversations: NAFLD, The Porter Disease of Metabolic Syndrome *February 032019 Episode 20 Article Reviews: The Role Ultra Processed Diets Play in Weight Gain *January 16, 2020 Episode 21 Clinical Conversations: Breaking Weight Plateaus The Obesity Guide Podcast with Evelyn Coyne MD [address], Malick Pineda MD Conquer Your Weight, Linda Lomeli MD Docs who lift podcast, Frank Hurtado and Jonah Borges documented in this encounter [facility] 09-04-2024 History of Presen t illness Narrative Images from the original note were not included. Some documentation from previous visit of 07/05/2024 was copied and pasted, documentation has been reviewed and edited as necessary for today's visit. Patient Summary: Linda is a 44 year old Female who presents for follow-up evaluation of obesity/weight management to treat and prevent related co-morbidities. In our previous visits we have discussed lifestyle intervention including a nutrition recommendations and physical activity optimization. Her last office visit was 2 months ago. Assessment/plan from last visit: - [facility]- elevated creatinine level 1.09 and eGFR 58 Vitamin D 33.4, 2022 TSH 1.47 - ordered CMP, Insulin, A1c, TSH- Lipids done in 11/2023 were WNL - Discussed nutrition in detail- pt has a lot of food noise- does eat overall well and does get regular exercise- I feel it will be in her best interest for trial of topiramate. Pt understands this is off label use. Reviewed common SE and how to take medication. -reviewed tracking- may be trigger for her so just focus on protein and decreasing carbs and processed foods Interval History PT specifies the following items as new or significant updates since the last appointment: - has been stressful month- dad was in hospital in [place] - had influenza A - feeling like need to snack is not there anymore - trying to focus on protein but does not necessarily restrict herself -gym has not been great this month due to everything but will get back to it. - no issues with medication- very happy with weight loss. Weight loss since last vist: 7 lbs - Last Wt 09/04/24 : 80.2 kg (177 lb) 07/05/24 : 83.5 kg (184 lb) Initial Wt Goal weight: 155 lb 5% weight loss = 175 lbs, 10% weight loss = 166 lbs Anti-obesity medications: Topiramate. Benefit:decreased food noise Adverse effects: none Weight promoting medications: none Previous Diet (initial appointment): Awake - 4:30am B - 2 eggs sometimes with toast, sometimes cereal- raisin bran crunch, protein granola and almond milk after work out - protein shake- ascent (25g, 2-4g carbs) S - nut and cheese snack pack, kind protein bar, cheese stick , pop corn, pretzels L - vegan/sugar free plant based (sakara)- half the time other time eating out- welsh, protein shake if has vegan. S - 1/4 of the time- pretzels or popcorn- whatever is at office- stress?? D - beef or chicken, sometimes fish- sides- green vegetable and rice/beans. eats out 1/2 the time- chipolte - basil- avocado saleem- chicken or shrimp w/ brown rice, panera- salad or francisco cheese soup, S - wine 2-3 x week occasional ice cream 1 x week Fluids: water (40-100oz), coffee, occasional beer, unswt. Van almond milk, wine occasional Bedtime - 9pm Quality of diet: 24hr recall suggests in between diet. Characterization of diet:Structured and unhealthy snacking. Appraisal Coordinator of impaired eating habits:lack of satiety, mindlessness , and stress Eating Disorder no Cravings: salty Dietary changes: B - 2 eggs, sometimes 25g protein S - no L - sakara lunch- protein shake- or chicken w/ salad , S - occasionally - meat stick, cottage cheese, ritz cracker and PB D - S - Fluids - Eating 3 meals a day, including breakfast Controlling portions Identify hunger and satiety cues Limiting processed foods Increasing protein Reducing carbohydrates Mindful Eating strategies Current Barriers: reduced physical activity- this month only Exercise: decreased- due to illness and travel Regular exercise: yes run 3 days a week 6miles 3 x week (increased from 3mi) Strength/resistance exercise:yes cross fit 3 days a week Stress: increased- dad sick - but stable now and work Sleep: stableDuration: 7 hours. KIERSTEN NO ; CPAP NO Estimated Creatinine Clearance: 79.1 mL/min (A) (based on SCr of 1.02 mg/dL (H)). PAST MEDICAL HISTORY Diagnosis Date Abnormal glandular Papanicolaou smear of cervix 2003,2009 Abn. Pap smear (cervix) Other int derangement knee Patellar Subluxation--Right Swine Flu May 2009 Current Outpatient Medications Medication Sig Dispense Refill oseltamivir (TAMIFLU) 75 mg capsule Drospirenone-Ethinyl Estradiol (RITU, 28,) 3-0.02 mg per tablet Take 1 tablet by mouth once daily. 28 tablet 11 topiramate (TOPAMAX) 50 mg tablet Take 1 tablet by mouth daily at bedtime. 90 tablet 0 No current facility-administered medications for this visit. 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 Latest Ref Rng & Units 07/25/2024 CMP Sodium 136 - 144 mmol/L 138 Potassium 3.7 - 5.1 mmol/L 4.0 Chloride 98 - 107 mmol/L 102 CO2 22 - 30 mmol/L 23 Glucose 74 - 99 mg/dL 84 BUN 7 - 21 mg/dL 10 Creatinine 0.58 - 0.96 mg/dL 1.02 EGFR >=60 mL/min/1.73m 70 Protein, Total 6.3 - 8.0 g/dL 7.0 Albumin 3.9 - 4.9 g/dL 4.4 Calcium 8.5 - 10.2 mg/dL 9.1 Bilirubin, Total 0.2 - 1.3 mg/dL 0.4 AST 13 - 35 U/L 18 ALT 7 - 38 U/L 14 Alkaline Phosphatase 34 - 123 U/L 42 No results found for: CHOL, HDL, LDL, TG Latest Ref Rng & Units 12/20/2013 CBC WBC 3.70 - 11.00 k/uL 9.21 RBC 3.90 - 5.20 m/uL 3.96 Hemoglobin 11.5 - 15.5 g/dL 12.3 Hematocrit 36.0 - 46.0 % 37.1 MCV 80.0 - 100.0 fL 93.7 MCH 26.0 - 34.0 pG 31.1 MCHC 30.5 - 36.0 g/dL 33.2 RDW-CV 11.5 - 15.0 % 13.8 Platelet Count 150 - 400 k/uL 184 MPV 9.0 - 12.7 fL 11.3 Baso% % 0.2 Abs Neut (ANC) 1.45 - 7.50 k/uL 6.83 Abs Lymph 1.00 - 4.00 k/uL 1.75 Abs [place] 0.00 - 0.86 k/uL 0.55 Abs Eosin 0.00 - 0.45 k/uL 0.06 Abs Baso 0.00 - 0.10 k/uL 0.02 Diff Type Auto Diff No results found for: VITD25 TSH (mIU/L) Date Value 07/25/2024 2.840 ) Hemoglobin A1C (%) Date Value 07/25/2024 4.7 No results found for: INSULIN 10.8 Assessment/Plan: Linda Crowe is a 44 year old with Overweight (Pre-obesity) who presented today for follow up for supervised weight loss to treat and prevent related co-morbidities. (R53.81, R53.83) Malaise and fatigue (primary encounter diagnosis) (R79.89) Elevated serum creatinine (E66.3, Z68.27) Overweight with body mass index (BMI) of 27 to 27.9 in adult -repeat Creatinine level- hydration before reviewed - continue topiramate daily- reviewed adding second dose if needed- will contact if feels cravings are increasing - reviewed adding more protein to breakfast- making shake routine - discussed focusing on two meals and then be more lenient on dinner - continue tamiflu for influenza A - Topiramate Rx ordered - will notify patient of results of lab - An overall goal of 150-200 minutes per week of exercise has been effective in weight loss and maintenance. Prescription instructions reviewed with patient as applicable. Potential red flag symptoms discussed with the patient. Reviewed appropriate action plan to take if red flag symptoms occur. Patient agreeable to treatment plan. Follow up in 3 months or prn I spent a total of 30 minutes on the date of the service which included preparing to see the patient, [id number] patient care, completing clinical documentation, obtaining and/or reviewing separately obtained history, performing a medically appropriate examination, counseling and educating the patient/family/caregiver, and ordering medications, tests, or procedures. Myra Peterson MD, FACOG, DABOM documented in this encounter [facility] 09-04-2024 Note HNO ID: [id number] Author: MYRA MORA MD Service: ? Author Type: Physician Type: Progress Notes Filed: 09/04/2024 12:45 Note Text: Some documentation from previous visit of 07/05/2024 was copied and pasted, documentation has been reviewed and edited as necessary for today's visit. Patient Summary: Linda is a 44 year old Female who presents for follow-up evaluation of obesity/weight management to treat and prevent related co-morbidities. In our previous visits we have discussed lifestyle intervention including a nutrition recommendations and physical activity optimization. Her last office visit was 2 months ago. Assessment/plan from last visit: - [facility]- elevated creatinine level 1.09 and eGFR 58 Vitamin D 33.4, 2022 TSH 1.47 - ordered CMP, Insulin, A1c, TSH- Lipids done in 11/2023 were WNL - Discussed nutrition in detail- pt has a lot of food noise- does eat overall well and does get regular exercise- I feel it will be in her best interest for trial of topiramate. Pt understands this is off label use. Reviewed common SE and how to take medication. -reviewed tracking- may be trigger for her so just focus on protein and decreasing carbs and processed foods Interval History PT specifies the following items as new or significant updates since the last appointment: - has been stressful month- dad was in hospital in [place] - had influenza A - feeling like need to snack is not there anymore - trying to focus on protein but does not necessarily restrict herself -gym has not been great this month due to everything but will get back to it. - no issues with medication- very happy with weight loss. Weight loss since last vist: 7 lbs - Last Wt 09/04/24 : 80.2 kg (177 lb) 07/05/24 : 83.5 kg (184 lb) Initial Wt Goal weight: 155 lb 5% weight loss = 175 lbs, 10% weight loss = 166 lbs Anti-obesity medications: Topiramate. Benefit:decreased food noise Adverse effects: none Weight promoting medications: none Previous Diet (initial appointment): Awake - 4:30am B - 2 eggs sometimes with toast, sometimes cereal- raisin bran crunch, protein granola and almond milk after work out - protein shake- ascent (25g, 2-4g carbs) S - nut and cheese snack pack, kind protein bar, cheese stick , pop corn, pretzels L - vegan/sugar free plant based (sakara)- half the time other time eating out- welsh, protein shake if has vegan. S - 1/4 of the time- pretzels or popcorn- whatever is at office- stress?? D - beef or chicken, sometimes fish- sides- green vegetable and rice/beans. eats out 1/2 the time- chipolte - basil- avocado saleem- chicken or shrimp w/ brown rice, panera- salad or [place] cheese soup, S - wine 2-3 x week occasional ice cream 1 x week Fluids: water (40-100oz), coffee, occasional beer, unswt. Van almond milk, wine occasional Bedtime - 9pm Quality of diet: 24hr recall suggests in between diet. Characterization of diet:Structured and unhealthy snacking. Appraisal Coordinator of impaired eating habits:lack of satiety, mindlessness , and stress Eating Disorder no Cravings: salty Dietary changes: B - 2 eggs, sometimes 25g protein S - no L - sakara lunch- protein shake- or chicken w/ salad , S - occasionally - meat stick, cottage cheese, ritz cracker and PB D - S - Fluids - Eating 3 meals a day, including breakfast Controlling portions Identify hunger and satiety cues Limiting processed foods Increasing protein Reducing carbohydrates Mindful Eating strategies Current Barriers: reduced physical activity- this month only Exercise: decreased- due to illness and travel Regular exercise: yes run 3 days a week 6miles 3 x week (increased from 3mi) Strength/resistance exercise:yes cross fit 3 days a week Stress: increased- dad sick - but stable now and work Sleep: stableDuration: 7 hours. KIERSTEN NO ; CPAP NO Estimated Creatinine Clearance: 79.1 mL/min (A) (based on SCr of 1.02 mg/dL (H)). PAST MEDICAL HISTORY Diagnosis Date Abnormal glandular Papanicolaou smear of cervix 2003,2009 Abn. Pap smear (cervix) Other int derangement knee Patellar Subluxation--Right Swine Flu May 2009 Current Outpatient Medications Medication Sig Dispense Refill oseltamivir (TAMIFLU) 75 mg capsule Drospirenone-Ethinyl Estradiol (RITU, 28,) 3-0.02 mg per tablet Take 1 tablet by mouth once daily. 28 tablet 11 topiramate (TOPAMAX) 50 mg tablet Take 1 tablet by mouth daily at bedtime. 90 tablet 0 No current facility-administered medications for this visit. ROS denies Paraesthesia, brain fog, stomach pain ROS/Fam Hx pertaining to AOMs: GEN: Fatigue:yes CV: h/o palpitations/cardiac arrhythmia, Chest pain: no HTN: no PULM: Asthma:no GI: GERD:no ; Gallstones:no ; Fatty liver disease:no Pancreatitis: no MSK: Joint Pain:no : Nephrolithiasis: no Symptoms of PCOS: no NEURO: Migraines/SAAB: no; H/o seizures: no Glaucoma:no; Cataract (more content not included)... [facility] 07-05-2024 Instructions Myra Mora MD - 07/05/2024 9:17 AM EST Images from the original note were not included. Weight Management: You have taken the initiative to become a healthier version of yourself and to decrease the risks that come with the diagnosis of obesity or being overweight. We are happy to help you along this journey but know this is a lifetime commitment to yourself. Losing just 3-10 % of your body weight can decrease your risks of many other serious diseases like diabetes, heart disease, osteoarthritis, hypertension, cancer and so many others. During this time you will have triumphs, setbacks and plateaus- your body will fight against you but we are here to give you the tools and the resources to continue to reach your goals. We recommend during this time that you track your weight daily or at least five times per week as well as tracking your nutrition. You may track your activity but do not use hitting your fitness goals as a reward system as this can derail your success. We recommend weekly physical activity of 150-200 min/week-although physical exercise, this will be especially important for weight maintenance. Exercise can have many other benefits including improving insulin resistance, improving balance, bone health, improving mental health and cardiovascular health. Do not feel overwhelmed - we will discuss this more at your visits. Our time will be limited with each visit but we will try to touch on factors that are important to you and to your overall goals. We will try to set a goal at the end of each visit and then decide on what we want to accomplish with your upcoming visits. On your After Visit Summary (AVS), we will provide you with information that may be useful during this journey so please remember to read the information given. Check your AVS a few days after your appointment because we may have added more information specifically for you. Remember that if you are placed on medications, they are tools that can help you succeed but you must put in the work. Your nutrition will be the main factor. There are medications that work well for some and not for others- so it may take time to find the right combination for your body's needs. Please remember that factors such as other health co-morbidities one might have, as well as insurance coverage, will play a factor in determining which medications you can take. Most of the newer medications that are all the craze ,injectables, may not be covered or will only be covered if you fail months of oral medications or have Type 2 diabetes so please be patient with the process. It would be beneficial for you to determine what your insurance covers as far as Anti-Obesity Medications (AOMs), Nutritional Counseling, behavioral intervention and weight loss surgery. Please call your health insurance prior to your first appointment and write down coverage for each of those therapies. Most importantly, remember that ultimately our goal is to help you get to a healthier weight which will decrease your overall health risks. We will work together as a team and try to reach your personalized goals as well. Follow-up appointments Please arrive to follow-up visits a minimum of 15 minutes prior to your appointment. Follow-up weight management visits can be virtual. You will need to report a current blood pressure, heart rate (pulse) and weight at the beginning of each virtual appointment so you will need to have a reliable BP cuff, either wrist or upper arm. If you need to reschedule your appointment time or switch from an in-office visit to a virtual visit or vice versa, you need to call our office as we have designated appointment slots. This should not be done on [facility] as you will not be scheduled appropriately and will need to be rescheduled. We appreciate that you have entrusted us with your health and know that we are committed to this process with you. Sincerely, Myra Alva MD, DONTRELL BORJAS & Enedelia De La Paz CNP Advanced Education from the Obesity [employer] Association Obesity Obesity is a disease that affects nearly one-third of the adult [place] population (approximately 60 million). The number of overweight and obese Americans has continued to increase since 1959, a trend that is not slowing down. Today, 64.5 percent of adult Americans (about 127 million) are categorized as being overweight or obese. Each year, obesity causes at least 300,000 excess deaths in the [place] and healthcare costs of [place] adults with obesity amount to approximately $100 billion. (AOA) Obesity is a complex, multi-factorial chronic disease involving: Environmental (social and cultural) The tendency toward obesity is a result of our environment: lack of physical activity along with high-calorie, low-cost foods. Home, work, school, and even the community can inhibit a healthy lifestyle. Genetic (Hereditary plays a large role in determining how susceptible people are to overweight and obesity). Genes also influence how the body velarde calories for energy and stores fat. Physiologic, metabolic, behavioral (eating too many calories while not getting enough exercise) and psychological components. It is the second leading cause of preventable in the [place] Behavioral changes brought on by economic development, modernization and urbanization have been linked to the rise in global obesity. Calculating BMI Body Mass Index (BMI) is a measurement tool used to determine excess body weight. Overweight is defined as a BMI of 25 or more, obesity is 30 or more, and severe obesity is 40 or more. You can visit www.nhlbi.nih.gov to estimate your BMI. Obesity Related Health Conditions The morbidity and mortality risk from being overweight is proportional to its degree. Individuals with morbid obesity, therefore, have the highest risk for developing numerous illnesses that often reduce mobility and quality of life due to their excess weight. In particular, type 2 diabetes, gallbladder disease and osteoarthritis have been found to increase concurrently with higher BMI. Premature , a 20-year shorter life span, has also been found in individuals with morbid obesity. All of the systems that make the body function are affected by morbid obesity. Type 2 diabetes Gallbladder disease and gallstones Liver disease Osteoarthritis, a disease in which the joints deteriorate. This is possibly the result of excess weight on the joints. Gout, another disease affecting the joints Pulmonary (breathing) problems, including sleep apnea in which a person can stop breathing for a short time during sleep Reproductive problems in women, including menstrual irregularities and infertility Gastroesophageal reflux/heartburn Hypertension Heart Disease Depression Psychological disorders/social impairments Urinary Stress Incontinence Obesity is also linked to higher rates of certain types of cancer. Obese men are more likely than non-obese men to from cancer of the colon, rectum, or prostate. Obese women are more likely than non-obese women to from cancer of the gallbladder, breast, uterus, cervix, or ovaries [email or web address] [email or web address]/[email or web address]-[email or web address] - Eat primarily whole foods. Limit carbs, especially processed carbs. Eat - Meat, vegetables and fruits with skin on if possible, eggs, cheese. - Do not drink your calories - 30 grams of protein for your first meal of the day decreases your hunger during the day by up to 40 %. Options include: Premier Protein or generic 30 gm protein 1 gm sugar or 5 eggs or 2-3 eggs and some unbreaded meat and/or cheese. No fruit, vegetables, bread, grain, yogurt, Smoothies, etc. - Walk for 15 minutes immediately after meal. TOPIRAMATE -- Take 25mg (1/2 tablet) daily x 2 weeks -- Then increase to 50mg daily after the initial two weeks so long as you are not having any side effects. -- You can take the tablet it at night at first (because of potential sleepiness side effects), but then you can take earlier around dinner after you have started the medication for a few days. You also may be able to take it in the morning if easier. -- We may increase the dose to 75mg a few weeks later if there is no change with 50mg, Typically the maximum medication dose would be 150mg daily but rarely would we need to titrate medication dose that high. -- The exact mechanism of topiramate on energy balance regulation is not clearly understood. Topiramate affects body mass index, fasting ooioetk-ku-eendfpw ratio, and serum leptin and cortisol levels. It has shown to improve hypothalamic insulin and leptin signaling and action and reduce obesity in mice. These changes may be keys factors in weight loss due to topiramate. If at any point you are feeling the effects of the medication you can stay at that dose or if you experience side effects you can decrease it to the previous dose. -- Please see the handout to review the potential side effects and to explain this further -- Please let me know if you experience any changes in your vision, worsening depression or mood problems, or an increase in suicidal thoughts or behaviors. --This medication should NOT be combined with alcohol. Risks of drinking alcohol while taking this medication include mental and psychological side effects, including confusion, dizziness, drowsiness, and depression. -- There is an increased risk for oral clefts when topiramate is used in the first trimester of . -- There is a possible decrease in contraceptive efficacy when using estrogen-containing control with topiramate, please use a back up form of control such as condoms and monitor for throughout treatment. -- If you decide that you would like to get or if you have any of these side effects please let me know and we can safely discontinue the medication. - If you are on loop diuretic or thiazide diuretic we will want to monitor your potassium level, especially if you have a history of low potassium. - It is important to taper off of this medication when we finished with treatment, typically decreasing the dose 25 mg a week. Stopping Topiramate abruptly can cause irritability, anxiety and difficulty concentrating. Topiramate (toe pyre a mate) What are the common names? Topamax Why is this medication prescribed? Topiramate is an anti-epileptic medications which has been approved by the FDA for patients 10 years of age or older for treatment of seizures. However, topiramate also has other uses such as the treatment of migraines. It also causes decrease in appetite and weight loss. The mechanism of weight loss is thought to be through inhibition of mitochondrial enzymes involved in energy expenditure and metabolism. Topiramate may work by helping you feel less hungry, less driven to eat, more satisfied with less food. What special precautions should I follow? Before having topiramate prescribed, tell your doctor and pharmacist: If you have allergies to any component of topiramate If you are , plan to become , are breast-feeding, or if you become while taking topiramate What are the warnings and precautions for this medication? Immediately discontinue the medicine and seek medical help if you have severe cognitive/neuropsychiatric adverse symptoms or eye symptoms. Cognitive/neuropsychiatric adverse events: symptoms may include confusion, psychomotor slowing, difficulty with concentration/attention, difficulty with memory, speech or language problems, particularily word-finding difficulties, somnolence or fatigue Acute myopia and secondary angle closure glaucoma, usually within 1 month of starting treatment: symptoms may include blurred vision, redness and/or pain in the eye Oligohydrosis (decrease sweating) and hyperthermia (elevation in body temperature) Increase in suicidal behavior or ideation Metabolic acidosis, non-gap hyperchloremic (decreased serum bicarbonate below normal levels) resulting in hyperventilation or fatigue Kidney stones Paresthesias (numbness or tingling in hands or feet) Ataxia Dizziness Increase in urination frequency Drug interactions. Use of monamine oxidase inhibitors (MAOI s), valproic acid, Caution use with dehydration or diarrheal illness, hepatic or renal impairment In case of emergency/overdose In case of overdose, call your local poison control center at or call local emergency services at [phone]. What other information should I know? Keep all appointments with your doctor and the laboratory. Do not let anyone else take your medication. Topiramate use needs to be monitored closely. Prescriptions may be refilled only a limited number of times. Keep a written list of all of your prescription and nonprescription (ticc-ysp-kizgelf) medicines, in addition to vitamins, minerals, or other dietary supplements. How should I monitor while on this medication? Your doctor will check your baseline kidney function and electrolytes prior to starting this medication, then periodically. Continue to improve your dietary and physical activity habits as the combination works best while on this medication. Start out by taking the medication at bedtime as it can cause fatigue and sleepiness. Be sure to eat regular meals. Less hunger does not make it appropriate to skip meals. Make sure to have an eye exam, including the pressure in your eyes (intra-ocular pressure), once a year. What should I do if I forget a dose? Skip the missed dose and continue your regular dosing schedule the next day. Do not take a double dose to make up for a missed one. Sources Pubmed Health: http://www.ncbi.nlm.nih.gov/pubm edhealth/SXW3594235/ Drugs.com http://www.drugs.com/pro/topiram ate.html Nutrition Reminders: NO NAKED CARBS!! Protein >= Carbs for each meal (if you are going to eat 50g carbs for lunch you should eat 50g protein or more). If you do not eat your carbs for lunch you do not get to save them for dinner- you use them or lose them. Balance your Protein between meals. Unless told otherwise your Minimum protein each day is 30grams per meal but don t be afraid to eat more. Focus on WHOLE FOODS if you can as your Gut Microbiome will benefit and you will feel more satisfied - the only caviot to this is protein shakes if needed. Water intake should be a minimum of 64oz per day- but more is better (to an extent) unless you have a medical condition that requires you to keep it to a minimum. Nothing is off limits- this is not about restricting yourself- this about learning what your body can have and still respond well to and learning how to balance food and still feel good. Track your food, weigh your food, measure your portion sizes as most people underestimate their food by approximately 40%. You should be tracking your Carbohydrates and Protein daily. It s ok if you had a bad day- write it down and move on! Weigh yourself daily or at least 5 times per week, it will help to keep you accountable. If you are hungry- think about your stress level, your sleep (did you get 7.5-9hrs?) and your protein consumption- if you did not meet your goals then those could be contributing to your hunger. During weight loss phase it is ok to use two protein shakes per day and eating one meal along with it - studies have shown you will lose more weight and keep it off. Take a multivitamin daily Sit less Move more- Exercise including resistance training is very important for your health and if you are not getting routine exercise right now there will come a point when it will become an important piece of this process. Meal replacements: Meal Replacements Plant-based protein bars Meal replacements. One option that works for some people is to use meal replacements, as in the DiRECT and Look AHEAD trials.The available options in Look AHEAD included shakes, bars, and meals from a variety of companies ([employer], [employer], OptiSkipjump, and SlimSkipjump). The calorie content was 150 to 220 calories, depending on the product. People who used meal replacements 12 times a week instead of preparing their own meals lost about 11% of their weight in the first year, whereas those who used just two per week lost about 6% of their weight. Keep in mind, though, that people in the trial who used meal replacements also tended to consume a healthier diet over all; they were more likely to have met their goals for dietary fat, fruits and vegetables, and dairy foods, and to have cut back on sweets, than those who didn t use meal replacements. Similarly, in the DiRECT trial, participants consumed special nutritionally complete shakes and soups (the Counterweight-Plus program) for the first 12 weeks.If you opt for meal-replacement drinks, bars, or frozen entrees, here are some criteria to look for: calories, 150 to 300 fat, 3 to 10 grams protein, > 20 grams sugar < 5 g Meal replacements are typically fortified with vitamins and minerals and contain some fiber. Because they are calorie controlled, the amount of added sugars is usually minimal. If you want to try this approach to boost weight loss, ask your dietitian or another member of your health care team how to incorporate the replacements into your meal planning and discuss whether you might need to reduce your doses of diabetes medications to prevent hypoglycemia (low blood sugar) as you cut calories and lose weight. It is important to find a meal-replacement product that suits your taste. If you prefer not to consume processed foods, you can make your own portion-controlled versions. Note that meal replacements don t work for everyone. While some people like meal-replacement shakes, bars, and soups and find them to be a convenient way to sustain a reduced calorie intake over time, others don t feel satisfied drinking them and often end up simply adding them to what they d normally eat--which could lead to weight gain. What s more, some people have a hard time readjusting to eating real food after they stop using meal replacements. 5 (FIVE) gram carb vegetable options 1 cup raw OR cup cooked: Asparagus Senior sprouts Beets Broccoli Brussel sprouts Cabbage Carrots Cauliflower Celery [place] Eggplant Green beans Lettuce Peppers Snap peas Spaghetti squash Spinach Tomato Turnips Zucchini 15 gram carb vegetable options cup cooked corn or hominy corn on the cob, large (5 oz) cup cooked green peas 4.3 gm complete protein cup cooked grace beans 1 small potato or sweet potato cup cooked potato, plain cup cooked sweet potato, plain 1 cup winter squash (pumpkin, acorn, butternut) 1 cup marinara or pasta sauce - check label cup tomato juice cup tomato puree Beans, Seeds, Nuts cup cooked beans (kidney, grubbs, red, green, etc.) cup cooked lentils cup baked beans 4 tablespoons nut butter <15 gram carb fruit options Berries have the lowest sugar content 1/2 medium apple - 12.5 carbs 1/2 medium avocado - 6.5 gm carbs 1/2 medium banana - 15 carbs 1/2 cup blueberries - 11 carbs - may actually help you lose weight 1/2 cup fresh cherries -11 carbs 1 medium Tish -9 carbs 1/2 cup fresh cranberries - 6.5 carbs 1/2 c grapes - 15 carbs 1/2 medium grapefruit - 10.5 carbs 1/2 cup diced honeydew melon - 8 carbs 1 medium kiwi without skin - 11 carbs 1/2 cup sliced jarrett -14 carbs 1 medium nectarine - 15 carbs 1 medium orange -15.5 carbs 1 medium peach -14.5 carbs 1/2 cup fresh pineapple -11 carbs 1 medium plum -7.5 carbs 1 prune - 6 carbs 1/4 c raisins - 31.25 carbs 1/2 cup raspberries -7.5 carbs 1/2 c strawberries - 12.7 carbs 1 medium tangerine -12 carbs 1/2 cup diced watermelon - 6 carbs Grains Brown rice 1/2 c 5.5g protein 24 carb White long-grain rice 1/2 c 2g protein 22.5 carb Quinoa 1/2 c 4 gm complete protein 25 carb Oatmeal, old fashioned 1/2 c 5g protein 27g carb Protein - no carbs Egg 1 large - 6g Egg white 1 large 3.6g 3 oz is approximately the size of a deck of cards and equals 21 g protein so 4 oz is 28 gm protein Beef, Chicken, [place], Pork, [place] 1 oz 7g Fish, Tuna Fish 1 oz 7g (Starkist tuna packet 2.6 oz 17 gm protein) Seafood (Crabmeat, Shrimp, Lobster) 1 oz 6g Protein shakes (read labels) Premier Protein or generic [employer] Equate, [employer] High Performance- 30g protein & 1g carb - meal replacement Premier Protein powder or generic- 30 gm protein, 1g carb Premier Protein plant protein powder - 25 gm protein, 0 sugar/2 carb Vanilla and chocolate (not a meal replacement) Fairlife 30 gram protein - 30g protein & 3g carb BOOST Glucose Control Max 30g Protein Nutritional Drink - 30g protein & 1 carb - meal replacement Slimfast High Protein - 20g protein & 1g carb Ensure Max Protein Nutrition Shake 30g protein & 2 carb Protein AND carbs Beef/[place] Jerky 1 oz dried 10-15g protein - check carb count, can be high if sugar added Slim Eddie - 6 gm protein and 4 net carb Great Value original turkey sausage sticks - 7 gm protein and 2 gm carb [employer] (at [facility]) Original smoked sausage sticks - 8 gm protein and 0 carb Imitation Crab Meat 1 oz - 2g protein & 4g carb Milk, skim 2% or 1% 8 oz - 8g protein & 12g carb Fairlife 2% milk 8 oz -13 g protein & 6g carb Irish yogurt Full Fat Irish Yogurt 1 cup - 20.4g protein & 9.1g carb 2% Irish Yogurt 1 cup - 22.7g protein & 9.1g carb 0% (fat-free) Irish Yogurt - 1 cup 24g protein & 9.3g carb Aldi Protein Irish yogurt single svg - 15g protein & 7g carb Chobani Zero Sugar single svg: - 12g protein & 5g carb Dannon Irish Light + Fit 1 single svg - 12g protein & 9g carb Oikos Pro single svg - 20g protein & 8g carb Oikos Triple Zero Irish Nonfat Yogurt 1 single svg - 15g protein & 7g carb :ratio, KETO Friendly Dairy Snack 1 single svg - 15g protein & 2g carb :ratio Protein 1 single svg - 25g protein & 8g carb Two Good Lowfat Irish Yogurt, [place], Lower Sugar - 12g protein & 2g carb Yoplait Protein 1 single svg 15gm protein & 5gm carb Dairy Free - [place] unsweetened Irish almond/soy 15 gm protein & 3 gm carb Dairy Free - True Goodness by [facility] coconut-based yogurt alternative 1 gm protein 1 gm net carb 180 aroldo Cheese each oz Brie 5.9g protein & 0.1g carb Cheddar 7g protein & 0.4g carb Negrito 6.7g protein & 0.7g carb Cream Cheese 1.7g protein & 1.2g carb Feta 4g protein & 1.2g carb Mozzarella 6.3g protein & 0.6g carb Parmesan 10g protein & 0.9g carb Algerian 7.6g protein & 1.5g carb Cottage Cheese 1/2 c [place] 2% 13g protein 7g carb Karla 2% 13g protein 5 g carb Good Culture 2% 14g protein 3g carb Isbell s Low Fat 12g protein & 4g carb Legumes Lentils cup 9g protein & 20g carb Grace beans cup 7g protein & 20g carb Kidney, Black, [place], Cannellini beans cup 8g protein & 20g carb Soybeans 1/2 c 14g complete protein & 8.5g carb [place] milk, unsweetened 8 oz 1g protein & 2g carb Soy milk 8 oz 3.5g protein & 1.6g carb Tofu 1/2 cup 10g protein & 2.3g carb Peanut butter, natural 2 Tbsp 7-8g protein & 4g net carbs, 190 calories PB2 powder 2 Tbsp 6g protein & 5g carb Nuts and Seeds per oz Almonds - 5.9g protein & 6.1g carb [place] Nuts - 4.0g protein & 3.4g carb Cashews - 5.1g protein & 9.2g carb Hazelnuts - 4.2g protein & 4.7g carb Hemp seeds/hearts 3 T/30 gms - 9.5 gm complete protein and 2.5 gm carb Peanuts - 7g protein & 4.6g carb Pecans - 2.6g protein & 3.9g carb Pistachios - 5.8g protein & 7.8g carb Pumpkin Seeds - 6.9g protein & 5g carb [place] Seeds - 5.8g protein & 5.6g carb Walnuts - 4.3g protein & 3.8g carb Edamame Beans (soybean) snack 1 pack 11 gm complete protein 2 carb VEGAN PROTEIN LIST SOY Tempeh: 17g protein 8g carbohydrate in 1/2 cup, Shelled Edamame: 9g Protein, 8g carbohydrate in 1/2cup Tofu: 9g protein,2 g carbohydrate per 3oz Soy Milk: 7g Protein, 15g carbohydrate in 1 cup Nutritional Yeast 8g Protein, 5g Carbohydrate in 2TBSP (16g) Seitan 30g Protein, 6.8g Carbohydrate in 1/2 cup Whole Grains Quinoa: 8g protein in 1cup Wild rice 6.5g protein in 1 cup Legumes Lentils 12g protein, 23g carbohydrate in 1/2 cup cooked Chickpea 6g protein, 17g carbohydrate in 1/2 cup cooked Black Beans 7g protein, 19g carbohydrate in 1/2 cup cooked Green Split peas 8g protein, 22g carbohydrate in 1/2 cup cooked Grace Senior 8g protein, 20g carbohydrate in 1/2 cup cooked Seeds Pumpkin 8g protein, 3 carbohydrate in 1/4cup Hemp 9g protein, 3 carbohydrate in 3 Tablespoons Tahini 10g protein, 3 carbohydrate in 2 Tablespoons Tee 5g protein, 10g carbohydrate in 2 tablespoons Nuts Almonds 6g protein, 6g carbohydrate in 1/4cup Walnuts 4g protein, 4g carbohydrate in 1/4cup Cashew 4g protein, 9g carbohydrate in 1/4cup Peanuts 8g protein, 5g carbohydrate in 1/4cup Peanut butter 7g protein, 6g carbohydrate in 2 TBSP Potatoes Russet potato- 1 medium (173g) 4.5g protein, 37g carbohydrate Red Potato- 1 large (299g) 6.9g protein, 59g carbohydrate Sweet Potato - 1 medium (114g) 2.3g protein, 24g carbohydrate Sprouted grain bread Dmitriy bread- per slice 5g protein, 15g carbohydrate Vegetables Artichoke- 4.2g protein, 13g carbohydrate in 1 medium (128g) Green Peas- 8g protein, 21g carbohydrates in 1 cup Brussel Sprouts - 3g protein, 8g carbohydrate in 1 cup [place]- 4.3g protein, 19g carbohydrate in 1/2cup Spinach- 1g protein, 1g carbohydrate in 1 cup 3g carb8g carb 20g protein, 4 carbohydrate per scoop QUICK VEGAN PROTEIN PRODUCTS/SNACKS: NOT high in protein- BUT LOW CARB SUBSTITUTE FOR NOODLES Why People Diet, Lose Weight and Gain It All Back Plus 4 ways to break the cycle + maintain your weight loss You -- and your diet -- have been firing on all cylinders. The weight is melting off, and you re feeling your best. But then there is that seemingly inevitable backslide, with pound after pound creeping back on despite your best efforts. It s the ultimate Catch-22. But before you beat yourself up, u.s. representative and obesity specialist Shahriar Monroe MD, has some welcome news: It s most likely not your fault. Your body is fighting to keep your weight as it was before the dieting, he says. But take heart -- it s possible to win the parker. What weight set point has to do with it Experts think as many as 80 to 95% of dieters gain back the weight they ve worked so hard to lose. Why? (WHY?!?) Dr. Monroe says the culprit is your weight set point : the weight your body is programmed to be. Your weight set point is a combination of several factors, including your: Genetics. Hormones. Behavior. Environment. Weight set point and metabolism play for the same team: Your metabolism velarde energy at a rate that will maintain your weight set point, even if that point is heavier than is healthy. Most of the time, weight gain is gradual, and that can raise your set point gradually, too, notes Dr. Monroe. But certain lifestyle changes can lower it. The perils of yo-yo dieting Beware of the quick-fix, Dr. Monroe warns. A fad diet won t change your set point. It s just restricting calories, he says. Your body is very efficient. You can successfully lose weight for a while, but at some point, your body simply adjusts to need fewer calories to function. Which means weight loss will eventually stop, unless you start eating even less than your diet calls for. (You can see where this is going.) Your body is also a survivor. As soon as calories drop, it starts doing everything in its power to prevent starvation, including: Ups the hunger hormone: Levels of the satiety hormone leptin (which controls how full you feel) decrease. Meanwhile, levels of the hunger hormone ghrelin increase. You feel hungrier, even after eating a normal meal. Makes you think, Oooh that looks good : Eating fewer calories alters how you think about and perceive food. Research shows dieters become hyper-focused on food and that it even smells and tastes better to them. These effects stick around for the long-term. Remember the television show The Biggest Loser? Contestants still felt the effects of their calorie deprivation six years later, making it harder to keep the weight off. Research tells us that yo-yo dieting can negatively affect your metabolism, Dr. Monroe says. It doesn t matter the diet: low-carb, low-fat, ketogenic, whatever. We see rebound weight gain almost every time. How to lose weight without gaining it back To maintain weight loss for good, Dr. Monroe advises focusing on these four areas: Diet. How can you create a healthy, long-term, [id number] diet? Learn what s healthy -- and what s not. (A laser beam cutter or dietitian can help.) Practice portion control, even when eating healthy foods. Avoid empty calories, but treat yourself once in a while. Don t diet. Instead, focus on forming healthy habits for life. Exercise. Be an equal opportunity all purpose clerk: Do both aerobic exercise (three to five times a week) and resistance training (two to three times nonconsecutively each week). Shoot for at least 25 to 35 minutes on most days. Exercise works best for staving off weight gain (not jumpstarting weight loss), so recognize that binging on exercise can be just as bad as binging on food. Exercise can make people super hungry, while it makes others tired and inactive, which can negate the activity they did, Dr. Monroe explains. But it s also important to remember the cardiovascular benefits of exercise, independent of weight loss. Exercise is always good and important, he says. Stress. Stress not only causes some people to eat more, but it also raises levels of the stress hormone cortisol. If you have more cortisol, you end up with higher insulin and lower blood sugar levels, Dr. Monroe says. (Cue the cravings.) To cope, put down the fork and try meditating or talking to a trusted friend. Sleep. Not getting enough sleep raises cortisol levels, too. It also affects decision-making (read: your ability to stick to healthy habits). Seven to nine hours every night is the magic number you need to help you manage stress. It also helps your body work with you -- and not against you -- when it comes to weight loss. https://health.[facility].o rg/fnl-wnbeau-htsn-fuvh-ytruty-t ii-kvpc-uo-all-back/ Why People Diet, Lose Weight and Gain It All Back - [facility] Tips for eating away from home: Youtube video: https://www.youtube.com/watch?v= M6qASYxZAeD Meals away from home make it harder to control ingredients, calories, and portions. This can be particularly challenging for people with Type 2 diabetes (and for those of us trying to avoid getting this condition). The following tips can help you enjoy eating out without abandoning your efforts to eat well. Ask how the food is prepared. Before you order, ask about ingredients and how the menu selections are prepared. Try to choose dishes made with whole grains, healthy oils, vegetables, and lean proteins. Meat that has been broiled, poached, baked, or grilled is a more health-conscious option than fried foods or dishes prepared with heavy sauces. Look for less. Your eyes are the perfect instrument for sizing up portion sizes. Use your estimating techniques to size up the food on your plate. 1 thumb tip = 1 teaspoon of peanut butter, butter, or sugar 1 finger = 1 oz. of cheese 1 fist = 1 cup cereal, pasta, or vegetables 1 handful = 1 oz. of nuts or pretzels 1 palm = 3 oz. of meat, fish, or poultry Plan on eating half your meal and take the rest home to enjoy for lunch or dinner the next day. Order an extra side of veggies. Non-starchy vegetables, such as green beans, broccoli, asparagus, or summer squash, will help you fill up with low-calorie choices. Think ahead. Learn important nutrition information ahead of time. Most fast-food chains provide calories, sodium, and fat content for their menu items. Check out www.[employer] for a listing of over 50,000 foods, including many restaurant items. You can also visit company-specific websites Dining Out Tips Dining out is tricky. You have less control over ingredients & portions so even when you think you re ordering healthy, it s likely way more calories & less nutrition than a similar meal you d make at home. Research shows people who do best losing weight & keeping it off don t dine out much only 2.5 times out of 21 meals in a week. So, when you do dine out, make sure to use these PRO TIPS to keep your body happy DINE OUT LIKE A PRO 1. RUIN Your Appetite. About 1.5 hrs before you go out, eat something to cut hunger so you don t get to the restaurant & dive head first into the breadbasket. Try a produce + protein snack such as an apple + almonds or celery + sunflower seed butter. 2. Know BEFORE You Go. Do a few minutes of research before you re swept up in a whirlwind of socializing & drinking. This could be as simple as perusing the online menu on your phone on the ride to the restaurant. 3. Order a [employer] BUNDLE. Pair a healthy superfood with a less-healthy craving. It s the only way to honor both your inner health nut and wild child. At a [facility] joint and really want the pulled pork? Get it - but instead of plopping it on a refined grain bun, ask to put it alongside a salad. 4. Limit FLAVORS. Research shows variety stimulates appetite, meaning tasting little bits of many different foods will trigger you to over eat. So if you find yourself facing a tableful of small plates or buffet-style eating, commit to your absolute favorites rather than sampling every option. 5. Entree + ONE. It s often not just the meal that racks up CRAP calories, it s also the add-on apps + drinks + desserts. Focus on your main and skip these extras, or at least just pick your favorite ONE. Smart: Pick an appetizer salad! When [place] researchers gave women a 100-calorie appetizer of either a salad or garlic bread, those who had the tiny salad ended up eating 21% less of their main course. Educational Podcasts: The Dr. Weinstein Show- Real Conversations about Health and Weight *February 13, 2024, how to determine your weight Gain Pattern to pick a weight loss medication or lifestyle plan *December 26, 2023, NEAT, Non- exercise activity thermogenesis - yes taking the stairs is good for you! *December 12, 2023, What to do when your weight loss plateaus * March 21, 2023 what you need to know about Carbohydrates and Weight *February 28, 2023 Protein why we need it and how to eat more Protein *February 07, 2023 Menopause and Weight Gain- All the Details with Dr. Carmita Covarrubias *January 17, 2023 The Science Behind Ultra Processed Food and Weight Gain *November 01, 2022 Effects of sleep and Stress of Weight and Health with Dr. Malu Casas-Withsrikanth, DO * October 25, 2022 Recognizing and Resolving Emotional Eating with Dr. Coyne Obesity: A Disease *October 25, 2022 Episode 80 Clinical conversations: The Role of Physical Activity in Weight Management * February 04, 2023 Episode 84 Clinical Conversations: NAFLD, The Porter Disease of Metabolic Syndrome *February 032019 Episode 20 Article Reviews: The Role Ultra Processed Diets Play in Weight Gain *January 16, 2020 Episode 21 Clinical Conversations: Breaking Weight Plateaus The Obesity Guide Podcast with Evelyn Coyne MD The Drive, Malick Pineda MD Conquer Your Weight, Linda Lomeli MD Docs who lift podcast, Frank Hurtado and Jonah Borges Why You May Want to Weigh Yourself Every Day At any given moment, an estimated 24% of men and 38% of women in the [place] are trying to lose weight (1Trusted Source). Meanwhile, obesity has skyrocketed and working-age adults are gaining about 2.2 pounds (1 kg) annually, on average (2Trusted Source, 3Trusted Source). Recent studies have shown that daily self-weighing may be a powerful tool for both losing and maintaining weight. However, many people believe that weighing yourself daily contributes to bad mental health and disordered eating habits. So what should you believe? This article sets the record straight on whether you should start weighing yourself daily. Weighing Yourself Daily Helps You Lose More Weight The simple act of self-weighing has received lots of attention and stirred up controversy for years. Some people have even thrown away their scale, claiming that it s a highly misleading weight loss tool that results in bad self-esteem and disordered eating habits (4, 5). However, recent studies generally agree that daily weighing is associated with greater weight loss and less weight regain than less-frequent self-weighing (6Trusted Source, 7, 8, 9). One study showed that participants who weighed themselves daily for six months lost 13 more pounds (6 kg), on average, than those who weighed themselves less frequently (10. What s more, those who weigh themselves daily tend to adopt more favorable weight control behaviors, exercise better restraint toward food and eat impulsively less often (10, 11). Interestingly, adopting healthy weight-related behaviors has been shown to be especially important when people emerge from adolescence into adulthood (12). One study in participants aged 18-25 showed that daily self-weighing resulted in better weight loss than less-frequent weighing (13). The researchers concluded that daily self-weighing is a particularly valuable self-regulation tool for this age group. Furthermore, another study showed that people who weighed themselves every day ate 347 fewer calories per day than those who did not. After six months, the group that weighed themselves daily ended up losing a whopping 10 times more weight than the control group (14). BOTTOM LINE: Daily self-weighing may cause people to lose more weight and gain less of it back, compared to less-frequent weighing. Daily Weighing May Motivate You and Improve Self-Control Being aware of your weight is a keys factor in successful weight loss. Awareness of your weight trend -- that is, whether your weight is going up or down -- is also important. In fact, weighing yourself more often is linked to weight control, while weighing yourself less often has been associated with weight gain. One study found that participants who weighed themselves less often were more likely to report increased calorie intake and decreased restraint toward food (15). Self-weighing promotes self-regulation and awareness of your weight trend and weight-related behaviors. That s why it generally results in greater weight loss (14). Although the exact number on the scale may be unimportant, monitoring weight loss progress motivates you to keep going and generally improves weight-related behavior and self-control. Also, by being more aware of your weight, you can quickly react to lapses in your progress and make necessary adjustments to maintain your goal. Since most people are able to sustain a habit of daily self-weighing, the adherence and acceptability of it is generally quite high (16Trusted Source, 17, 18, 19, 20). It s a minor addition to your daily routine that may help you reap major benefits for your weight. BOTTOM LINE: Daily self-weighing helps you maintain awareness of your weight. Monitoring weight loss progress further motivates you to keep going and improves your self-control. Daily Weighing Helps You Keep the Weight Off Frequent self-weighing has been shown to be a great way to prevent weight gain in the long-term (15, 2, 22, 23). One study investigated how much self-weighing frequency predicted weight jacket changer two years in working adults (24Trusted Source). It found that there was a significant link between self-weighing frequency and weight change. In normal-weight individuals, daily weighing resulted in a slight weight loss, while those who weighed themselves monthly gained 4.4 pounds (2 kg), on average. However, the largest difference was in overweight individuals. Those who weighed themselves daily lost 10 pounds (4.4 kg), while those who weighed themselves monthly gained 2.2 pounds (1 kg), on average (24). Another study came to a similar conclusion, showing that self-weighing was a significant predictor of body weight over time. Participants lost an extra pound (0.45 kg) of body weight for every 11 days they self-weighed (25). The main reason why this is so effective is that consistent self-weighing allows you to catch weight gain before it escalates and make the necessary changes to prevent more weight gain (15). BOTTOM LINE: Daily weighing may help prevent long-term weight gain, especially in overweight people. Weighing Yourself Daily Is Not as Bad as People Think Not so long ago, frequent self-weighing was thought to be damaging to your mental health. This notion still exists today. Self-weighing is claimed to have negative effects on your mood by continuously reinforcing that your body size is not ideal or appropriate, resulting in an increased risk of developing an eating disorder (4Trusted Source, 5Trusted Source). Although this may be true in a small group of people, most studies have repeatedly come to a different conclusion (9Trusted Source, 26Trusted Source, 27Trusted Source). The available research suggests there is very little evidence that frequent self-weighing is a cause of negative mood or body dissatisfaction, especially as part of a weight loss program (8Trusted Source, 12Trusted Source, 14Trusted Source, 26Trusted Source, 28Trusted Source, 29Trusted Source). In fact, studies indicate that frequent self-weighing may increase body satisfaction, rather than decrease it (9Trusted Source). That said, there is a group of people who may develop a negative body image, low self-esteem or undesirable eating behaviors as a result of daily self-weighing (30Trusted Source). If you find that daily self-weighing causes you to have bad feelings about yourself or your eating behaviors, you should find other methods to measure your progress. BOTTOM LINE: Most studies do not link frequent self-weighing to negative mood or body dissatisfaction. Some even associate them with higher body satisfaction. How to Weigh Yourself for Best Results The best time to weigh yourself is right after you wake up, after going to the bathroom and before you eat or drink. Your weight tends to fluctuate less in the morning than later in the day when you ve had plenty to eat and drink. That is also why people weigh the least in the morning. Also, it is best if you always weigh yourself in similar clothing each day. However, you need to keep in mind that your weight may fluctuate from day to day and can be affected by many factors, including: What you ate or drank the previous day Bloating or water retention Menstrual cycle Whether you ve had bowel movements recently Therefore, it is important to assess the trend of your weight over a longer period of time, instead of drawing conclusions from each and every weighing. A basic scale will do just fine. However, many scales also have the ability to measure your body mass index (BMI), body fat percentage and muscle mass, which may help you get a better picture of your progress. There are also several apps available for your phone or computer that allow you to easily enter your daily weight and see the trend of your weight change. Happy Scale for iPhone and Tiffanie for Android are two such apps. BOTTOM LINE: It is best to weigh yourself right after you wake up, after going to the bathroom and before you eat or drink anything. Other Ways to Track Your Progress Although self-weighing may be a valuable tool, it has some limitations. If you re exercising and gaining muscle, the scale may not show your progress and instead simply show that you have gained weight. While losing weight can indicate progress, a scale does not differentiate between healthy weight (muscle) and unhealthy weight (fat). Therefore, it may be good to add other ways of tracking your progress to your regimen. Here are some examples: Measure circumference: Muscle has much less volume than fat, so your circumference may be decreasing even if your weight stays the same or goes up. Measure body fat percentage: By measuring your body fat percentage, you can observe changes in fat mass, regardless of your weight. Take pictures of yourself regularly: You can observe any changes in your physique by comparing photos of yourself in similar clothing. Note how your clothes feel: Any changes in your weight will probably affect how your clothes fit. Feeling them become looser or tighter is one of the best indicators of changes in your body. BOTTOM LINE: Other ways to track your progress include measuring your circumference, measuring your body fat percentage and taking pictures of yourself. Take Home Message Weighing yourself every day can help increase your awareness of your weight and weight-related behaviors. It may help you lose more weight and prevent you from gaining that weight back in the long-term. Daily self-weighing may just be that extra motivation you need to achieve your weight goals. https://www.[employer].SpeedDate/nutri tion/daily-weighing Creating a Mindful Eating Environment: 10 Mindless Eating Solutions If you're looking for easier ways to make healthy changes to your diet and lifestyle, consider these simple mindless eating solutions for staying on-track with nutrition: Serve Salad and Vegetables First. Before bringing out your main dish, serve salad and vegetables first to ensure you're eating enough of this important food group. This strategy will also help you eat less of the rest of your dish which is likely higher in calories, etc. Serve Your Main [facility] on the Stove or Counter. Studies show that we're likely to eat less if our food is placed on the stove or counter rather than right in front of us. Eat on Smaller Plates. Similar to the strategy mentioned above, studies show that you're likely to consume less food if you're eating from a smaller plate. This is likely due to the increase of smaller portion sizes. Turn off Your Television. Watching television as you eat can be highly distracting, and it affects your ability to eat mindfully. For example: you're less likely to notice when you're full, so you might consume excess calories. Keep Mostly Water On-hand. Calories from drinks can add up quickly, especially in fruit juices, alcohol and soft drinks. By minimizing the amounts of those drinks on-hand, you're more likely to consume water when you're thirsty - and water has amazing health benefits! Keep Your Kitchen Organized. An organized refrigerator, counter and cabinet space makes you more likely to find and choose the foods which are healthiest for you. On the contrary, a messy kitchen space may make you more apt to grab the first item you see. Pre-cut Your Fruits and Vegetables. Let's admit it: We're more likely to put off eating produce if we have to go through the burden of cutting it first. Pre-cut fruits and vegetables will eliminate this extra step. Have at Least Six Single Servings of Lean Protein On-hand. This includes lean meats such as turkey and chicken, yogurt, eggs, nuts, beans and legumes. By having plenty of lean protein on-hand, you can better manage your appetite and hunger levels. Keep All Snack Foods in One Inconvenient Cupboard. You're less likely to reach for unhealthy snack foods if they're not all gazing up at you from plain sight! Keep Only a Fruit Bowl on Your Counter. This way, if you're one to grab foods based off of their availability, you'll reach for healthier fruits rather than less healthy snack foods. https://www.obesityaction.org/co mmunity/news/community-news/crea ho-o-iuyohib-eating-environment/ documented in this encounter [facility] 07-05-2024 Note HNO ID: [id number] Author: MYRA MORA MD Service: ? Author Type: Physician Type: Progress Notes Filed: 07/05/2024 11:50 Note Text: Patient Summary: Linda Crowe is a 44 year old female with obesity who presents for an initial evaluation of overweight/obesity to treat and prevent co-morbidities and is interested in combination of behavioral and pharmacological. Motivation for seeking treatment for the disease of overweight/obesity : she wants a healthy bmi Goal weight: 155 lb Lowest recall weight: 150 lb Highest non- recall weight: 184 lb Patient identified barriers to weight loss: mindful eating Weight History: She reports no family history of obesity and late adulthood (covid )weight gain. She states her weight gain is related to the following factors, including onset of premenopause, consumption of unhealthy foods and to much food, and stress. Difficulty losing weight? Yes History of weight loss with regain? 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 Exercise: Regular exercise: yes run 3 days a week 6miles 3 x week (increased from 3mi) Strength/resistance exercise:yes cross fit 3 days a week Barriers to regular exercise? no Work-related activity:Sedentary. 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 Current Contraception: combined hormonal contraceptives Obesity ROS/ FHx GEN: Fatigue:yes CV: h/o palpitations/cardiac arrhythmia, Chest pain: no HTN: no PULM: Asthma:no GI: GERD:no ; Gallstones:no ; Fatty liver disease:no Pancreatitis: no MSK: Joint Pain:no : Nephrolithiasis: no Symptoms of PCOS: no NEURO: Migraines/SAAB: no; H/o seizures: no Glaucoma:no; Cataracts no Symptoms of or History of pseudotumor cerebri:no Family or personal History of MEN2 or Medullary thyroid cancer: no Diet/Nutrition overview: Awake - 4:30am B - 2 eggs sometimes with toast, sometimes cereal- raisin bran crunch, protein granola and almond milk after work out - protein shake- ascent (25g, 2-4g carbs) S - nut and cheese snack pack, kind protein bar, cheese stick , pop corn, pretzels L - vegan/sugar free plant based (sakara)- half the time other time eating out- welsh, protein shake if has vegan. S - 1/4 of the time- pretzels or popcorn- whatever is at office- stress?? D - beef or chicken, sometimes fish- sides- green vegetable and rice/beans. eats out 1/2 the time- chipolte - basil- avocado saleem- chicken or shrimp w/ brown rice, panera- salad or francisco cheese soup, S - wine 2-3 x week occasional ice cream 1 x week Fluids: water (40-100oz), coffee, occasional beer, unswt. Van almond milk, wine occasional Bedtime - 9pm Quality of diet: 24hr recall suggests in between diet. Characterization of diet:Structured and unhealthy snacking. Appraisal Coordinator of impaired eating habits:lack of satiety, mindlessness , and stress Eating Disorder no Cravings: salty Sleep Duration: 7 hours. KIERSTEN NO ; CPAP NO Stress Stress:yes , Cause:Work Obesity Related Comorbidities: Prior Weight Loss Surgery:No PAST MEDICAL HISTORY Diagnosis Date Abnormal glandular Papanicolaou smear of cervix 2003,2009 Abn. Pap smear (cervix) Other int derangement knee Patellar Subluxation--Right Swine Flu May 2009 PAST SURGICAL HISTORY Procedure Laterality Date COLPOSCOPY CERVIX UPPER/ADJACENT VAGINA Colposcopy PAST SURGICAL HISTORY OF 2003 Right Pinky Finger (Two Surgeries after Broke Finger) PAST SURGICAL HISTORY OF ORAL SURGERY FAMILY HISTORY Problem Relation Age of Onset Lung Cancer Father Cancer Maternal Grandmother Throat Diabetes Maternal Grandmother Hypertension Maternal Grandfather Diabetes Paternal Grandmother Heart Paternal Grandfather Social History Tobacco Use Smoking status: Never Smokeless tobacco: Never Vaping Use Vaping status: Never Used Substance Use Topics Alcohol use: Yes Alcohol/week: 6.0 - 7.0 standard drinks of alcohol Types: 4 Glasses of Wine (5oz), 2 - 3 Cans of Beer (12oz) per week Comment: Occasionally Drug use: No PE Ht 172.7 cm (5' 8) Wt 83.5 kg (184 lb) LMP 12/03/2016 No BMI 27.98 kg/m? Waist Circumference: 37 Neck Circumference: NA GENERAL: Female in NAD. Mixed central and gluteofemoral adiposity. SKIN: acanthosis nigricans no, Skin tags: no Hirsutism: no HEENT: PERRL, No supraclavicular adiposity. No dorsal adiposity. ABDOMEN: Protuberant ; EXTREMITIES: peripheral edema: no Impression: Linda Crowe is a 44 year old Female with Overweight (Pre-obesity) (Body mass index is 27.98 kg/m?.) who has late adulthood obesity with gradual weight gain despite several weight loss attemp (more content not included)... [facility] 07-05-2024 History of Presen t illness Narrative Images from the original note were not included. Patient Summary: Linda Crowe is a 44 year old female with obesity who presents for an initial evaluation of overweight/obesity to treat and prevent co-morbidities and is interested in combination of behavioral and pharmacological. Motivation for seeking treatment for the disease of overweight/obesity : she wants a healthy bmi Goal weight: 155 lb Lowest recall weight: 150 lb Highest non- recall weight: 184 lb Patient identified barriers to weight loss: mindful eating Weight History: She reports no family history of obesity and late adulthood (covid )weight gain. She states her weight gain is related to the following factors, including onset of premenopause, consumption of unhealthy foods and to much food, and stress. Difficulty losing weight? Yes History of weight loss with regain? 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 Exercise: Regular exercise: yes run 3 days a week 6miles 3 x week (increased from 3mi) Strength/resistance exercise:yes cross fit 3 days a week Barriers to regular exercise? no Work-related activity:Sedentary. 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 Current Contraception: combined hormonal contraceptives Obesity ROS/ FHx GEN: Fatigue:yes CV: h/o palpitations/cardiac arrhythmia, Chest pain: no HTN: no PULM: Asthma:no GI: GERD:no ; Gallstones:no ; Fatty liver disease:no Pancreatitis: no MSK: Joint Pain:no : Nephrolithiasis: no Symptoms of PCOS: no NEURO: Migraines/SAAB: no; H/o seizures: no Glaucoma:no; Cataracts no Symptoms of or History of pseudotumor cerebri:no Family or personal History of MEN2 or Medullary thyroid cancer: no Diet/Nutrition overview: Awake - 4:30am B - 2 eggs sometimes with toast, sometimes cereal- raisin bran crunch, protein granola and almond milk after work out - protein shake- ascent (25g, 2-4g carbs) S - nut and cheese snack pack, kind protein bar, cheese stick , pop corn, pretzels L - vegan/sugar free plant based (sakara)- half the time other time eating out- welsh, protein shake if has vegan. S - 1/4 of the time- pretzels or popcorn- whatever is at office- stress?? D - beef or chicken, sometimes fish- sides- green vegetable and rice/beans. eats out 1/2 the time- chipolte - basil- avocado saleem- chicken or shrimp w/ brown rice, panera- salad or francisco cheese soup, S - wine 2-3 x week occasional ice cream 1 x week Fluids: water (40-100oz), coffee, occasional beer, unswt. Van almond milk, wine occasional Bedtime - 9pm Quality of diet: 24hr recall suggests in between diet. Characterization of diet:Structured and unhealthy snacking. Appraisal Coordinator of impaired eating habits:lack of satiety, mindlessness , and stress Eating Disorder no Cravings: salty Sleep Duration: 7 hours. KIERSTEN NO ; CPAP NO Stress Stress:yes , Cause:Work Obesity Related Comorbidities: Prior Weight Loss Surgery:No PAST MEDICAL HISTORY Diagnosis Date Abnormal glandular Papanicolaou smear of cervix 2003,2009 Abn. Pap smear (cervix) Other int derangement knee Patellar Subluxation--Right Swine Flu May 2009 PAST SURGICAL HISTORY Procedure Laterality Date COLPOSCOPY CERVIX UPPER/ADJACENT VAGINA Colposcopy PAST SURGICAL HISTORY OF 2003 Right Pinky Finger (Two Surgeries after Broke Finger) PAST SURGICAL HISTORY OF ORAL SURGERY FAMILY HISTORY Problem Relation Age of Onset Lung Cancer Father Cancer Maternal Grandmother Throat Diabetes Maternal Grandmother Hypertension Maternal Grandfather Diabetes Paternal Grandmother Heart Paternal Grandfather Social History Tobacco Use Smoking status: Never Smokeless tobacco: Never Vaping Use Vaping status: Never Used Substance Use Topics Alcohol use: Yes Alcohol/week: 6.0 - 7.0 standard drinks of alcohol Types: 4 Glasses of Wine (5oz), 2 - 3 Cans of Beer (12oz) per week Comment: Occasionally Drug use: No PE Ht 172.7 cm (5' 8) Wt 83.5 kg (184 lb) LMP 12/03/2016 No BMI 27.98 kg/m Waist Circumference: 37 Neck Circumference: NA GENERAL: Female in NAD. Mixed central and gluteofemoral adiposity. SKIN: acanthosis nigricans no, Skin tags: no Hirsutism: no HEENT: PERRL, No supraclavicular adiposity. No dorsal adiposity. ABDOMEN: Protuberant ; EXTREMITIES: peripheral edema: no Impression: Linda Crowe is a 44 year old Female with Overweight (Pre-obesity) (Body mass index is 27.98 kg/m .) who has late adulthood obesity with gradual weight gain despite several weight loss attempts. The causes of her obesity are multifactorial, biological, psychological and social and environmental. Specific factors include overeating at meals . She has no significant weight-related medical comorbidities which increase her cardiovascular mortality risk. There are no additional metabolic obesity complications including labs pending today . Other medical conditions as above. Regarding her lifestyle, as above, she has a few behavioral contributors ; her physical activity is regular. Overall, it is clear that her quality of life is mildly compromised by her weight. It is likely a combination of weight loss therapies will be needed. She appears motivated today. Plan: -- Based on the severity and resistance of the obesity/overweight with co-morbidities, I believe a combination of behavioral and pharmacological intervention is the best and most appropriate chcf therapeutic option. -- We discussed several strategies to track food intake and increase mindfulness around eating while will decrease calorie intake. She was counseled on the following: Eating primarily whole foods. Limit carbs, especially processed carbs. Do not drink your calories 30 grams of protein for breakfast decreases your hunger during the day by up to 40 % Premier Protein or generic 30 gm protein 1 gm sugar Walk for 15 minutes immediately a meal. -- Encouraged the patient to improve her physical activity. Although cardiovascular exercise is most beneficial for weight loss initially, we discussed healthy muscle from a combination of resistance training and cardiovascular exercise is the best chcf plan. An overall goal of 150-200 minutes per week of exercise has been effective in weight loss and maintenance. -- Reviewed that monitoring weight daily and food intake can have a positive impact on overall weight loss and maintenance of weight loss. Activity tracking can be used to stay on target for exercise however should not be used to reward oneself She understands that there can be limitations of pharmacotherapy due to contraindications, side effects and cost. Patient was told to contact her insurance company to see what AOMs and supervised behavioral medical appointments are currently covered. Patient understands she will have more success when following a healthy lifestyle. We reviewed continued use of online tracking of daily weights, food journal and if desired physical activity. We reviewed that during management she is to report any concerning side effects of any pharmacotherapy she is placed on. She understands that she will need routine follow up in the office. Prior to any virtual visits in the future she will need to check her Blood pressure, weight, and pulse. - LABS reviewed from [facility]- elevated creatinine level 1.09 and eGFR 58 Vitamin D 33.4, 2022 TSH 1.47 - ordered CMP, Insulin, A1c, TSH- Lipids done in 11/2023 were WNL - Discussed nutrition in detail- pt has a lot of food noise- does eat overall well and does get regular exercise- I feel it will be in her best interest for trial of topiramate. Pt understands this is off label use. Reviewed common SE and how to take medication. -reviewed tracking- may be trigger for her so just focus on protein and decreasing carbs and processed foods (R53.81, R53.83) Malaise and fatigue (primary encounter diagnosis) (R79.89) Elevated serum creatinine (Z13.220) Screening cholesterol level (Z13.1) Screening for diabetes mellitus (Z13.228) Screening for metabolic disorder (Z13.29) Screening for thyroid disorder (Z13.21) Encounter for vitamin deficiency screening (E66.3, Z68.27) Overweight with body mass index (BMI) of 27 to 27.9 in adult Prescription instructions reviewed with patient as applicable. Potential red flag symptoms discussed with the patient. Reviewed appropriate action plan to take if red flag symptoms occur. Patient agreeable to treatment plan. -- follow-up visit in 6 -8 weeks for management of above interventions I spent a total of 65 minutes on the date of the service which included preparing to see the patient, sjny-up-lbpe patient care, completing clinical documentation, obtaining and/or reviewing separately obtained history, performing a medically appropriate examination, counseling and educating the patient/family/caregiver, and ordering medications, tests, or procedures. Myra Peterson MD, FACOG, DABOM documented in this encounter [facility] 06-29-2024 Telephone encounter Note Please add patient to my schedule Jul 05 9:20am for NEW WEIGHT MGMT. She knows she is to arrive 20-30 min ahead of that time. Please have Luis Daniel Moss add appropriate slot on schedule for her. Thank you. [facility] 06-29-2024 Miscellaneous Notes Please add patient to my schedule Jul 05 9:20am for NEW WEIGHT MGMT. She knows she is to arrive 20-30 min ahead of that time. Please have Luis Daniel Moss add appropriate slot on schedule for her. Thank you. documented in this encounter [facility] 06-01-2023 History of Presen t illness Narrative Images from the original note were not included. Subjective HPI Nontoxic-appearing female presents urgent care chief complaint rash. Duration of symptoms 4 days. Associated symptoms pruritic slightly painful rash on her face. Started 4 days ago. Has not used any OTC medications. States rash shortly started after using a face cream. Rash is well-demarcated around where face cream was used. Denies any significant pain. No recent medication changes or antibiotic use. Overall feels well. Denies chance of . Is not breast-feeding. Denies any fever body aches chills productive cough chest pain shortness of breath pleuritic pain hemoptysis nausea vomiting abdominal pain change in bowel or bladder habits. Past medical history prescription medication use and allergies reviewed. .Patient presents with: Allergic Reaction: Reaction to lotion on her face x 4 days PAST MEDICAL HISTORY Diagnosis Date Abnormal glandular Papanicolaou smear of cervix 2003,2009 Abn. Pap smear (cervix) Other int derangement knee Patellar Subluxation--Right Swine Flu May 2009 PAST SURGICAL HISTORY Procedure Laterality Date COLPOSCOPY CERVIX UPPER/ADJACENT VAGINA Colposcopy PAST SURGICAL HISTORY OF 2003 Right Pinky Finger (Two Surgeries after Broke Finger) PAST SURGICAL HISTORY OF ORAL SURGERY ALLERGIES Amoxicillin MEDICATIONS Drospirenone-Ethinyl Estradiol (RITU, Jelani,) 3-0.02 mg per tablet Take 1 tablet by mouth once daily. DHA/EPA/FOLIC ACID/VIT A,D/MIN (DHA-EPA-VIT A-VIT R-WDVGAJU-IP ORAL) Take by mouth. MULTIVITAMIN ORAL Take by mouth. cetirizine (ZYRTEC) 10 mg tablet Take 1 tablet by mouth once daily for 10 days. predniSONE (DELTASONE) 20 mg tablet Take 2 tablets by mouth once daily for 5 days. CEPHALEXIN (KEFLEX ORAL) Take by mouth. VIT/FE FUMARATE/FA ( ORAL) Take 1 tablet by mouth once daily. XSX-TFZ-Atdnpbiuck Agent-Vit E ORAL Cap Take 1 capsule by mouth once daily. FAMILY HISTORY Problem Relation Age of Onset Diabetes Paternal Grandmother Cancer Maternal Grandmother Throat Diabetes Maternal Grandmother Hypertension Maternal Grandfather Heart Paternal Grandfather Social History Tobacco Use Smoking status: Never Smokeless tobacco: Never Substance Use Topics Alcohol use: Yes Alcohol/week: 6.0 - 7.0 standard drinks of alcohol Types: 4 Glasses of Wine (5oz), 2 - 3 Cans of Beer (12oz) per week Comment: Occasionally Drug use: No BP 112/74 Pulse 68 Temp 37.1 C (98.8 F) (Tympanic) Resp 18 Wt 83 kg (183 lb) LMP 12/03/2016 SpO2 100% BMI 27.58 kg/m Review of Systems Constitutional: Negative for chills, fever and malaise/fatigue. HENT: Negative for congestion, ear discharge, ear pain, sinus pain and sore throat. Eyes: Negative for blurred vision, pain, discharge and redness. Respiratory: Negative for cough, hemoptysis, sputum production, shortness of breath, wheezing and stridor. Cardiovascular: Negative for chest pain. Gastrointestinal: Negative for abdominal pain, diarrhea, nausea and vomiting. Musculoskeletal: Negative for myalgias. Skin: Positive for itching and rash. Neurological: Negative for dizziness and headaches. Objective Physical Exam Constitutional: General: She is not in acute distress. Appearance: She is not toxic-appearing. HENT: Head: Normocephalic. Comments: Slightly erythematous rash noted highlighted area. Rash is more pronounced under eyes. No evidence of bacterial infection. Rash is blanching. Nose: Nose normal. Mouth/Throat: Mouth: Mucous membranes are moist. Pharynx: Oropharynx is clear. No oropharyngeal exudate or posterior oropharyngeal erythema. Eyes: Pupils: Pupils are equal, round, and reactive to light. Cardiovascular: Rate and Rhythm: Normal rate. Pulmonary: Effort: Pulmonary effort is normal. No respiratory distress. Musculoskeletal: Cervical back: Normal range of motion. No tenderness. Lymphadenopathy: Cervical: No cervical adenopathy. Skin: General: Skin is warm and dry. Neurological: General: No focal deficit present. Mental Status: She is alert. ASSESSMENT/PLAN: 1. Rash - ICD9: 782.1, ICD10: R21 Patient diagnosed with rash. No evidence of bacterial focus 2. No adenopathy noted. Treat with antihistamines and prednisone burst. 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 Patient was educated on supportive therapies. Patient will follow up with primary care provider as needed. Patient was instructed to immediately proceed to emergency room for any new, worsening, or symptoms lasting longer than anticipated. The patient's clinical presentation is otherwise unremarkable at this time. Based on exam and clinical finding, the patient is stable for discharge. Plan of care was discussed with patient. Patient verbalizes understanding and agrees to plan of care. This note was generated using [employer] software. It may contain errors in wording, punctuation, or spelling. Aidan Hill APRN.DEVONTE documented in this encounter [facility] 10-01-2013 History of Past i llness Narrative Problem Noted Date Diagnosed Date Resolved Date Supervision of other normal 10/01/2013 06/20/2014 Overview: XX on us- History of miscarriage, currently 07/03/2013 06/20/2014 Overview: 07/03/2013 She has a history of a miscarriage May 14 2013. She denies any bleeding, pain, or cramping this . Discussed history of miscarriage with Dr. Libertad Whittington. Pt is 4w1d by dates. Quantitative hCG ordered by Dr. Libertad Whittington and to be repeated in 48 hours. An ultrasound was ordered by Dr. Whittington to be done at 7 weeks. Miscarriage precautions given. Patient is to call/come in if she develops any bleeding, pain, cramping, or PRN problems. TKRN History of headache 07/03/2013 06/20/20 14 Overview: 07/03/2013 She states that she was seen at [facility] ED on March 02, 2012 for headache. She states that the diagnosis given to her was a blood clot in the brain and she was transferred to [facility]. She states an MRI was done at [facility] 2 days later that revealed no blood clot present. Patient was told she had an irregular heart rhythm. She states she was not told to followup with a psychiatric clinician. She had a followup appointment with Dr. Velasco and she states that he did not find any problems with her heart rhythm. She denies feeling any palpitations or irregular heart rhythm since then. Patient signed a release of records form to obtain her medical records from [facility] previously . I spoke with Dr. Libertad Whittington today and she states that these records were received and sent to medical records to be scanned. TKRN Short interval between pregn ancies complicating , antepartum 05/03/201305/14 Overview: 05/03/2013 She delivered her previous child February 27, 2012. TKRN complication 05/03/201305/04 Overview: 05/03/2013She states that she was seen at [facility] ED on March 02, 2012 for headache. She states that the diagnosis given to her was a blood clot in the brain and she was transferred to [facility]. She states an MRI was done at [facility] 2 days later that revealed no blood clot present. Patient was told she had an irregular heart rhythm. She states she was not told to followup with a psychiatric clinician. She had a followup appointment with Dr. Velasco and she states that he did not find any problems with her heart rhythm. She denies feeling any palpitations or irregular heart rhythm since then. Patient signed a release of records form to obtain her medical records from [facility]. Patient has questions regarding blood work for clotting labs. She will discuss this with Dr. Libertad Whittington at her new OB appointment. Mastitis, 04/17/2012 013 Supervision of normal first 07/28/2011 04/17/2012 Overview: XY on - rodrigo bill documented as of this encounter (statuses as of 06/02/2023) [facility]* Chief Complaint COVID EORDER Reason for Visit COVID-19 [facility] Work Phone: Chief complaint+Reason for visit Narrative* Chief Complaint COVID EORDER EORDER Reason for Visit COVID-19 [facility] Work Phone: Evaluation note* Diagnosis Onset Date Resolution Status COVID-19 acute [facility] Work Phone: Evaluation note* Diagnosis Onset Date Resolution Status Encounter for routine gynecological examination noneactive [facility] Work Phone: Evaluation noteNo assessment information available [facility] Work Phone: Evaluation note* Diagnosis Rash- Primary Rash and other nonspecific skin eruption documented in this encounter [facility] note* Diagnosis Malaise and fatigue- Primary Other malaise and fatigue Elevated serum creatinine Other nonspecific findings on examination of blood Screening cholesterol level Screening for lipoid disorders Screening for diabetes mellitus Screening for metabolic disorder Screening for thyroid disorder Encounter for vitamin deficiency screening Screening for other and unspecified endocrine, nutritional, metabolic, and immunity disorders Overweight with body mass index (BMI) of 27 to 27.9 in adult [facility] Diagnosis Overweight with body mass index (BMI) of 27 to 27.9 in adult- Primary documented in this encounter [facility] note* Diagnosis Malaise and fatigue- Primary Other malaise and fatigue Elevated serum creatinine Other nonspecific findings on examination of blood Overweight with body mass index (BMI) of 27 to 27.9 in adult [facility] [place] [facility] Diagnosis Malaise and fatigue- Primary Other malaise and fatigue History of gestational hypertension Elevated serum creatinine Other nonspecific findings on examination of blood Overweight with body mass index (BMI) of 27 to 27.9 in adult documented in this encounter [facility] Family History Relationship Condition Age at Onset Recorded Date/T mihir grandfather Cardiac disease Unknown Myocardial infarction Unknown grandmother Malignant neoplasm Unknown Advance Directives Advance Directive Response Recorded Date/ Time Living Will No October 12th, 20 18 6:16am Power of Service Order Clerk Yes April 14, 2018 6:16am Chief Complaint and Reason for Visit Chief Complaint EORDER 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) SCREENING MARISOL- EMPOWER HEREDITARY CANCER TEST BOX Reason for Visit Encounter for routin e gynecological examination Chief Complaint EORDER Chief Complaint EORDER SCREENING Reason for Referral Specialty Diagnoses / Procedures Referred By Kirsty t Referred To Contact Diagnoses Overweight with body mass index (BMI) of 27 to 27.9 in adult Procedures CONSULT TO [facility] WEIGHT MANAGEMENT PROGRAM OFFICE/OUTPATIENT [facility] 60 MINUTES Myra Mora MD [address] [place] [address] Referral ID Status Reason Start Date Expiration Date Visits Requested Visits Authorized [id number] Authorized PCP Requested Referral Auto-Generate d Referral 4 06/29/2025 1 1 Summary Purpose Additional Source Comments Goals (unrecognized section and content) Goals may be documented in a n alternate sectionGoals may be documented in an alternate sectionGoals may be documented in an alternate sectionGoals may be documented in an alternate section Care Teams (unrecognized sec tion and content) Team Status: Active Member Role Status Dates Dr. Vicente Velasco MD Family Provider Active Dr. Vicente Velasco MD Primary Care Provider Activ e Team Status: Inactive Member Role Status Dates Dr. Vicente Velasco MD Primary Care Provider, Attending Provider, Referring Provider Active Team Status: Inactive Member Role Status Dates Dr. Vicente Velasco MD Primary Care Provider Activ e Dr. Lynda Rivera MD Attending Provider, Referr ing Provider Active Abstract Maker Relationship Specialty Start Date End Date Stacey Velasco MD [address] [place], [place] [address] [address] PCP - General Family Medicine 12/31/10 Abstract Maker Relationship Specialty Start Date End Date Stacey Velasco MD [address] [place], [place] [address] [address] PCP - General Family Medicine 12/31/10 Abstract Maker Relationship Specialty Start Date End Date Stacey Velasco MD [address] [place] [address] PCP - General Family Medicine 12/31/10 Abstract Maker Relationship Specialty Start Date End Date Stacey Velasco MD [address] [place] [id number] PCP - General Family Medicine 12/31/10 Abstract Maker Relationship Specialty Start Date End Date Stacey Velasco MD [address] [place], [place] [id number] PCP - General Family Medicine 12/31/10 Source Comments (unrecognize d section and content) In the event this informatio n is protected by the Federal Confidentiality of Alcohol and Drug Abuse Patient Records regulations: The Federal rules restrict any use of the information to criminally investigate or prosecute any alcohol or drug abuse patient.[facility] the event this information is protected by the Federal Confidentiality of Alcohol and Drug Abuse Patient Records regulations: The Federal rules restrict any use of the information to criminally investigate or prosecute any alcohol or drug abuse patient.[facility] the event this information is protected by the Federal Confidentiality of Alcohol and Drug Abuse Patient Records regulations: The Federal rules restrict any use of the information to criminally investigate or prosecute any alcohol or drug abuse patient.[facility] the event this information is protected by the Federal Confidentiality of Alcohol and Drug Abuse Patient Records regulations: The Federal rules restrict any use of the information to criminally investigate or prosecute any alcohol or drug abuse patient.[facility] the event this information is protected by the Federal Confidentiality of Alcohol and Drug Abuse Patient Records regulations: The Federal rules restrict any use of the information to criminally investigate or prosecute any alcohol or drug abuse patient.[facility] Reason for Visit (unrecogniz ed section and content) Reason Comments Allergic Reaction Reaction to lotion o n her face x 4 days Reason Onset Date Comments Weight Management 07/05/2024 Reason Comments Weight Management INFORMATION SOURCE (unrecogn ized section and content) DATE CREATED AUTHOR 12/04/2024 [facility] DATE CREATED AUTHOR AUTHOR'S ORGANIZ ATION 12/06/2024 [facility] FOR RECORDS PERTAINING TO PATIENTS WHO ARE OR HAVE BEEN ENROLLED IN A CHEMICAL DEPENDENCY/SUBSTANCEABUSE PROGRAM, SOME INFORMATION MAY BE OMITTED. This clinical summary was aggregated from multiple sources. Caution should be exercised in using it in the provision of clinical care. This summary normalizes information from multiple sources, and as a consequence, information in this document may materially change the coding, format and clinical context of patient data. In addition, data may be omitted in some cases. CLINICAL DECISIONS SHOULD BE BASED ON THE PRIMARY CLINICAL RECORDS. [facility]. provides no warranty or guarantee of the accuracy or completeness of information in this document.
[2024-12-25 10:11] LABS: Absolute Lymphocyte Count 1.83 X10^3/uL (0.83-4.51); Absolute Neutrophil Count 3.1 X10^3/uL (2.0-7.7); Basophil# 0.03 X10^3/uL; Basophil% 0.6 % (0-1); Eosinophil# 0.06 X10^3/uL; Eosinophils% 1.1 % (0-5); Hematocrit 37.2 % (37-47); Lymphocyte # 1.83 X10^3/ul (0.83-4.51); Lymphocyte % 34.1 % (19-41); Mean Corp Hgb Conc 34.9 g/dL (32-36); Mean Corpuscular Hgb 31.2 pg (27.0-32.0); Mean Corpuscular Volume 89.2 fL (81-99); Mean Platelet Vol. 10.3 fl (6.2-12.0); Monocyte# 0.29 X10^3/uL; Monocyte% 5.4 % (0-10); NRBC Flagged by Analyzer 0 % (0-5); Neutrophil # 3.14 X10^3/uL (2.7-7.7); Neutrophil % 58.6 % (47-70); Platelet Count 203 K/mm3 (150-450); RBC Distribution Width CV 11.8 % (11.6-14.6); RBC Distribution Width SD 38.2 fl (35.1-43.9); Red Blood Count 4.17 M/mm3 (4.2-5.4); White Blood Count 5.4 K/mm3 (4.4-11.0)
[2024-12-25 10:44] LABS: ALB/GLOB Ratio 1.4 RATIO (0.9-2.4); AST(SGOT) 18 U/L (<=31); Alanine Aminotransfer ALT/SGPT 16 U/L (<=34); Albumin, Serum 3.9 g/dL (3.5-5.0); Alkaline Phosphatase 50 U/L (35-104); Anion Gap 13 (5-15); BUN 13 mg/dL (4-19); BUN/Creat Ratio 13.9 RATIO (10-20); Calcium,Total 9.1 mg/dL (7.6-11.0); Carbon Dioxide 22.2 mmol/L (21.0-32.0); Chloride 101 mmol/L (98-108); Cholesterol 139 mg/dL (<=200); Creatinine, Serum 0.94 mg/dL (0.70-1.20); EST Glomerular Filtration Rate 77 (>60); Globulin 2.7 g/dL (2.2-4.2); Glucose 92 mg/dL (70-99); High Density Lipoprotein 55 mg/dL; Low Density Lipoprotein Calc. 61 mg/dL; Potassium 4.2 mmol/L (3.3-5.1); Protein, Total 6.7 g/dL (5.9-8.4); Sodium Level 137 mmol/L (133-145); Total Bilirubin 0.23 mg/dL (0.00-1.30); Triglycerides 116 mg/dL; Very Low Density Lipoprotein 23 mg/dL (5-40); Vitamin D,25 Hydroxy 29.9 ng/mL (30-100); cholesterol:hdl ratio screen 2.53
== END | disposition home or self-care (01) ==
LOC: MTLAB 07:29
PROVIDERS: PCP Family Medicine; Referring Provider Family Medicine; Visit Provider Family Medicine
DX: Z00.00 Encounter for general adult medical examination without abnormal findings (principal); Z13.220 Encounter for screening for lipoid disorders; Z13.1 Encounter for screening for diabetes mellitus
CPT/HCPCS: 36415; 80053; 80061; 82306; 84443; 85025

== ENCOUNTER → 2025-06-13 | Outpatient (CLI) | payer BC, SELFPAY ==
--- NOTE | 2025-06-13 07:45 | BI_ITS ---
EXAM: SCRN MAMM (CAD)W/NEY BILAT DATE: 06/13/2025 CLINICAL HISTORY: F, Age 45 y/o , SCREEN FOR BREAST CANCER No family history. TECHNIQUE: Procedure Code: [id number] Modality: MG Procedure: SCRN MAMM (CAD)W/NEY BILAT COMPARISON: Prior exam(s) dated May 25, 2024. FINDINGS: TISSUE DENSITY: The breasts are extremely dense, which lowers the sensitivity of mammography. Bilateral Breast Mammographic Findings: No significant masses, calcifications or other abnormalities are identified. No suspicious masses, areas of developing architectural distortion, or suspicious calcifications. There has been no significant interval change. BI/SCRN MAMM (CAD)W/NEY BILAT IMPRESSION: Stable bilateral screening mammogram. OVERALL FINAL ASSESSMENT BI-RADS 1: NEGATIVE. RECOMMENDATION: Routine annual follow-up in 1 Year Additional Recommendation none A letter with findings and recommendations will be mailed to the patient. Reading Location: [place] [id number]
== END | disposition home or self-care (01) ==
LOC: OPBI 07:44
PROVIDERS: PCP Family Medicine; Referring Provider Nurse Practitioner Family; Visit Provider Nurse Practitioner Family
DX: Z12.31 Encounter for screening mammogram for malignant neoplasm of breast (principal)
CPT/HCPCS: 77063; 77067